=== PATIENT | female | born 1960 | race Caucasian/White ===

== ENCOUNTER 2025-08-05 08:30 | Outpatient (AMB) | payer OTHER, SELFPAY ==
--- OUTSIDE RECORDS SUMMARY | 2025-07-29 16:47 | XMS_ITS | Encounter Summary ---
Author Organization [facility] Address [address] [place] [address] Care Team Providers Care Stitcher Around Name Role Phone Eric Awa RAISSA Primary Care Provider [phone] Reason for Referral * Home Health (Routine) - Closed Specialty Diagnoses / Procedures Referred By Evens squires Referred To Contact Home Health Services Diagnoses Atrial flutter with rapid ventricular response (CMS/HCC V24, CMS/HCC V28) Primary cancer of right lower lobe of lung (CMS/HCC V24, CMS/HCC V28) Primary malignant neoplasm of lung metastatic to other site, unspecified laterality (CMS/HCC V24, CMS/HCC V28) Lindsay Mederos MD [address] [place] [phone] Phone: tel: fax: [address] [place] [address] Phone: tel: fax: Referral ID Status Reason Start Date Expiration Date V isits Requested Visits Authorized [id number] Closed Consult and Treat 08/03/2025 08/03/2026 1 1 Reason for Visit * Reason Comments Shortness of Breath Lower extremity swel ling x 3-4 days * Auth/Cert (Routine) Specialty Diagnoses / Procedures Referred By Contac t Referred To Contact Diagnoses Community acquired pneumonia NSTEMI (non-ST elevated myocardial infarction) ([facility] V24, [facility] V28) Anemia, unspecified type Dyspnea, unspecified type Procedures . Phuc Velásquez MD [address] [place] [address] Phone: tel: fax: [facility] [address] [place] [phone] Phone: tel: Referral ID Status Reason Start Date Expiration Date Visits Re quested Visits Authorized [id number] 1 1 Encounter Details Date Type Department Care Team (Latest Contact Info) Description 07/29/2025 4:47 PM EDT - 08/03/2025 3:14 PM EDT Hospital Encounter [facility] Urology [facility] [address] [place] [phone] Jean Claude Reynoso MD [address] [place] [phone] Phuc Velásquez MD [address] [place] [phone] Lindsay Mederos MD [address] [place] [phone] Dyspnea, unspecified type (Primary Dx); Anemia, unspecified type; NSTEMI (non-ST elevated myocardial infarction) ([facility]/HCC V24, [facility] V28); Atrial flutter with rapid ventricular response ([facility]/HCC V24, [facility] V28); Primary cancer of right lower lobe of lung ([facility] V24, [facility] V28); Primary malignant neoplasm of lung metastatic to other site, unspecified laterality ([facility] V24, [facility] V28) Discharge Disposition: Home-Health Care Svc Social History Tobacco Use Types Packs/Day Years Used Date Smoking Tobacco: Former Cigarettes Smokeless Tobacco: Never Alcohol Use Standard Drinks/Week Comments Yes 0 (1 standard drink = 0.6 oz pur e alcohol) 3-4 drinks per week Housing Instability Answer Date Recorde d Are you worried that in the next 2 months you may not have stable housing? Patient declined 07/11/2025 Food Access & Nutrition Answer Date Rec orded Do you have access to a vari ety of food including fruits and vegetables? Patient declined 07/11/2025 Health Literacy Answer Date Recorded How often do you need to hav e someone help you when you read instructions, pamphlets, or other written material from your doctor or pharmacy? Patient declined 07/11/2025 Caregiver: How often do you need to have someone help you when you read instructions, pamphlets, or other written material from your doctor or pharmacy? Not on file 025 Financial Risk Answer Date Recorded How hard is it for you to pa y for the very basics like food, housing, medical care, and air conditioning / heating? Patient declined 07/11/2025 Transportation Answer Date Recorded Has the lack of transportati on kept you from meetings, work, or from getting things needed for daily living? Patient declined 07/11/2025 Has the lack of transportati on kept you from medical appointments or from getting medications? Patient declined 07/11/2025 Social Isolation Answer Date Recorded How often do you feel lonely or isolated from those around you? Patient declined 07/11/2025 Food Risk Answer Date Recorded Within the past 12 months we worried whether our food would run out before we got money to buy more. Not asked 08/02/2025 Within the past 12 months th e food we bought just didn't last and we didn't have money to get more. Not asked 08/02/2025 Dependent Care Answer Date Recorded Do you need help finding or paying for care for your loved ones. For example, child care associate or elderly care for an older adult? Patient declined 07/11/2025 Education Answer Date Recorded Do you think completing more education or training, like finishing a GED, going to college, or learning a trade, would be helpful for you? Patient declined 07/11/2025 Employment and Income Answer Date Recor ded During the last four weeks, have you been actively looking for work? Patient declined 07/11/2025 Living Situation Answer Date Recorded What is your living situation? 0 07/11/2025 Interpersonal Safety Answer Date Record ed Physical Abuse 07/30/2025 Verbal Abuse 07/30/2025 Comments No Sex and Gender Information Value Date Recorded Sex Assigned at Female 10/14/2024 2:37 PM EST Legal Sex Female 2:41 AM EST Gender Identity Female 10/14/2024 2:37 PM EST Sexual Orientation Straight 03/25/2025 9: 21 AM EDT documented as of this encounter Last Filed Vital Signs Vital Sign Reading Time Taken Comments Blood Pressure 129/75 08/03/2025 9:05 AM EDT Pulse 104 08/03/2025 9:05 AM EDT Temperature 36.8 C (98.2 F) 08/03/2025 7:28 AM EDT Respiratory Rate 18 08/03/2025 7:28 AM EDT Oxygen Saturation 97% 08/03/2025 9:0 5 AM EDT dropped briefly to 88% on room air after stepping up/down 5 steps Inhaled Oxygen Concentration - - Weight 59 kg (130 lb) 07/30/2025 7:06 AM EDT Height 160 cm (5' 2.99 ) 07/30/2025 7:0 6 AM EDT Body Mass Index 23.03 07/30/2025 7:06 AM EDT documented in this encounter Functional Status * Are you deaf or do you have serious difficulty hearing? Answer Date of Assessment Author No 07/29/2025 5:18 PM EDT Aure Paredes RN * Are you blind or do you have serious difficulty seeing, even when wearing glasses? Answer Date of Assessment Author No 07/29/2025 5:18 PM EDT Aure Paredes RN * Do you have serious difficulty walking or climbing stairs? Answer Date of Assessment Author No 07/29/2025 5:18 PM EDT Aure Paredes RN * Do you have serious difficulty dressing or bathing? Answer Date of Assessment Author No 07/29/2025 5:18 PM EDT Aure Paredes RN * Because of a physical, mental, or emotional condition, do you have serious difficulty doing errandsalone such as visiting the doctor? Answer Date of Assessment Author No 07/29/2025 5:18 PM EDT Aure Paredes RN documented as of this encounter Mental Status * Because of a physical, mental, or emotional condition, do you have serious difficulty concentrating, remembering, or making decisions? (5 years old or older) Answer Entry Date Author No 07/29/2025 5:18 PM EDT Aure Paredes RN documented in this encounter Discharge Summaries * Lindsay Mederos MD - 08/03/2025 12:12 PM EDT Images from the original note were not included. BOWLING GREEN DISCHARGE SUMMARY Patient Information Veronica Frazier : 1960 [65 y.o.] Admitting Provider Phuc Velásquez MD Discharge Provider Lindsay Mederos MD, Lindsay Mederos MD Primary Care Physician Awa Reyes NP Admission Date 07/29/2025 Discharge Date 08/03/2025 Summary of Hospital Problems Presenting Chief Complaint: Shortness of breath Primary Discharge Diagnosis: Dyspnea with exertion Early pneumonia MetastaticAdenocarcinoma of the lung Paroxysmal A-fib Secondary Discharge Diagnosis: Gastric MALT lymphoma Bilateral pleural effusions small right greater than left Chronic anemia Discharge Destination: Home with services Code Status at Discharge: Full Code - Default Inpatient Consultants: Oncology Dr. Adams Infectious disease Dr. L[facility] Course Summary This is a 65-year-old female with history of metastatic adenocarcinoma of the lung complicated by bronch cultures growing pencillium, was started on voriconazole prophylaxis however discontinued by herself, marginal zone lymphoma, gastric MALT lymphoma, anemia, history of alcohol use, anxiety/depres belinda presenting to the emergency room with complaints of increasing shortness of breath. Patient admitted with concern of early developing pneumonia. Patient noted to be tachycardic with minimal ambulation, Trope was noted to be mildly elevated at 298, subsequent at 292. Patient admitted for further workup and management. Dyspnea, early pneumonia, reactive airway disease Likely early pneumonia in the setting of underlying metastatic right lung adenocarcinoma, with likely some reactive airway disease exacerbation as well. History of penicillium species in [facility] in May 2025, was on voriconazole, for total 6 weeks duration. Patient states that she took it for sometime and then stopped-due to concern of side effects felt it made her go into A-fib. Placed on IV antibiotics ceftriaxone and doxycycline completed course no fever or chills. Was also placed on a very short course of prednisone for the reactive airway disease, improved. Continue with updraft scheduled and as needed at home. CT scan done this admission showing no pulmonary embolism, bulky mediastinal and hilar adenopathy demonstrating bronchovascular encasement small right greater than left pleural effusions noted. COVID, influenza, negative Seen by respiratory, home O2 eval done, does not qualify for supplemental oxygen. metastatic adenocarcinoma of the lung History of gastric MALT lymphoma Bilateral pleural effusions right greater than left status post thoracentesis outpatient. Patient is status post right lower lobe superior segmentectomy, right upper lobe posterior segmentectomy, and status post right lower lobectomy. Followed by oncology Dr. Adams, on chemotherapy last received in May. PET scan done in March 2025 showed persistent right supraclavicular/infrahilar mass which appears increased in size with obstructive changes noted. metabolic activity within the mediastinal enlarged right hilar lymph nodes and new within the small right subcarinal node. Followed by interventional pulmonary as well. Seen by Dr. Cruz on 07/19/2025, has had right thoracentesis done which was noted to be predominantly lymphocytic, cytology negative. Pleurx catheter was deferred as the effusion was felt to be posterior and small. CT this admission also showing small right greater than left pleural effusion. No need for thoracentesis at this time. Discussed with oncology, appreciate input, patient is scheduled to have a second opinion at [facility] on 08/05 and wishes to continue to make decisions regarding further chemotherapy, clinical trial options at that time. Recent bronch in May 2025- grew pencillium species and was started on voriconazole - patient stopped taking due to concern for side effects. Seen by ID, appreciate input, felt penicillium does not generally cause invasive infections. Symptoms likely secondary to her progressive malignancy. As patient unable to tolerate voriconazole, wouldrecommend alternate dose if she is to begin on chemotherapy after being seen at [facility] and decision made regarding further treatment plans. Then would need antifungal treatment, could possibly try Isavueconazole, ID will follow up outpatient and will work on the PA process Paroxysmal A-fib likely be secondary from the primary illness. Had brief episodes of rapid A-fib, tachycardia initially, Cardizem dose was increased to 240 mg. She has been since noted to be in sinus rhythm on panel monitor. Continue with the Eliquis as well. Anemia chronic Hemoglobin did drop to 7.3 during the hospital course, was transfused 1 unit of packed red blood cell at the time. Currently stable Elevated troponin Noted to be mildly elevated at 298, subsequent at 292. Patient denies any chest pain, was noted to have tachycardia could likely be secondary to this. depression/anxiety Patient is on Ritalin, bupropion, hydroxyzine and trazodone, CODE STATUS full Healthcare proxy Brother -discussed plan of care with the patient as well as the brother during thehospital course Patient was seen by physical therapy recommending home PT services. Patient medically stable at her best at this time, does not require supplemental oxygen on eval. Needs to follow-up with [facility] oncology-appointment on 08/05/2025 to discuss regarding further options. Follow-up with Dr. Adams following this as well as infectious disease in a month. Follow-Up Instructions and Recommendations No follow-up provider specified. Discharge Procedure Orders Ambulatory referral to Home Health Standing Status: Future Referral Priority: Routine Referral Type: Home Health Referral Reason: Consult and Treat Requested Specialty: Home Health Services Number of Visits Requested: 1 Discharge Medications Your medication list START taking these medications Instructions Last Dose Given Next Dose Due albuterol HFA 90 mcg/actuation inhaler Commonly known as: ProAir HFA Inhale 2 puffs by mouth every 4 (four) hours if needed for wheezing or shortness of breath. benzonatate 200 mg capsule Commonly known as: TESSALON Take 1 capsule (200 mg total) by mouth 3 (three) times a day if needed for cough for up to 7 days. Do not crush or chew. CHANGE how you take these medications Instructions Last Dose Given Next Dose Due dilTIAZem CD 120 mg 24 hr capsule Commonly known as: CARDIZEM CD What changed: how much to take Take 2 capsules (240 mg total) by mouth 1 (one) time each day. CONTINUE taking these medications Instructions Last Dose Given Next Dose Due apixaban 5 mg tablet Commonly known as: ELIQUIS Take 1 tablet (5 mg total) by mouth 2 (two) times a day. buPROPion XL 150 mg 24 hr tablet Commonly known as: WELLBUTRIN XL Take 2 tablets (300 mg total) by mouth 1 (one) time each day. Do not crush, chew, or split. folic acid 1 mg tablet Commonly known as: FOLVITE Take 1 tablet (1 mg total) by mouth 1 (one) time each day. hydrOXYzine HCL 25 mg tablet Commonly known as: ATARAX Take 1 tablet (25 mg total) by mouth 3 (three) times a day if needed. ipratropium-albuteroL 0.5-2.5 mg/3 mL nebulizer solution Commonly known as: DUONEB Take 3 mL by nebulization every 8 (eight) hours. methylphenidate 10 mg tablet Commonly known as: RITALIN Take 10 mg by mouth 2 times daily. multivitamin tablet Take 1 tablet by mouth 1 (one) time each day. rosuvastatin 5 mg tablet Commonly known as: CRESTOR Take 1 tablet (5 mg total) by mouth 1 (one) time each day. senna 8.6 mg tablet Commonly known as: SENOKOT Take 2 tablets (17.2 mg total) by mouth 2 (two) times a day. sodium chloride 0.9 % nebulizer solution Take 3 mL by nebulization every 8 (eight) hours. thiamine 100 mg tablet Commonly known as: VITAMIN B-1 Take 1 tablet (100 mg total) by mouth 1 (one) time each day. TRAZODONE ORAL Take 100 mg by mouth 1 (one) time each day in the evening. STOP taking these medications voriconazole 50 mg tablet Commonly known as: Vfend Where to Get Your Medications These medications were sent to [id number] [phone] albuterol HFA 90 mcg/actuation inhaler benzonatate 200 mg capsule dilTIAZem CD 120 mg 24 hr capsule Physical Exam at time of Discharge Physical Exam Elderly female anxious appearing tearful in between conversation. HEENT PERRLA, EOMI Neck supple Chest no accessory muscle use, improved air entry, occasional wheezes heard. Heart S1-S2 regular no murmurs appreciated Abdomen soft nontender bowel sounds present Extremities no edema noted at this time. MANAGER OF LEARNING awake alert oriented x 3 no gross focal neurological deficits. Vitals Visit Vitals BP 129/75 Pulse 104 Temp 36.8 ??C (98.2 ??F) Resp 18 Temp (24hrs), Av.8 ??C (98.3 ??F), Min:36.6 ??C (97.9 ??F), Max:37.2 ??C (99 ??F) Body mass index is 23.03 kg/m??. No results found for: PTWT , PTHT Recent Results (from the past week) [id number], RSV, Influenza A and B qualitative RT-PCR Collection Time: 07/29/25 2:55 PM Specimen: Nares; Swab Result Value Ref Range Influenza A PCR Not Detected Not Detected Influenza B PCR Not Detected Not Detected RSV PCR Not Detected Not Detected SARS COV-2 Not Detected Not Detected MRSA molecular study Collection Time: 07/29/25 10:44 PM Specimen: Nares; Swab Result Value Ref Range MRSA Screen PCR Not Detected Not Detected Results from last 7 days Lab Units 08/02/2532 07/31/25 0507/30/25 0622 SODIUM mmol/L 138 135 134 POTASSIUM mmol/L 4.0 3.7 3.7 CHLORIDE mmol/L 101 97 98 CO2 mmol/L 30 29 31 BUN mg/dL 13 8 9 CREATININE mg/dL 0.67 0.59 0.58 GLUCOSE mg/dL 142* 134* 138* CALCIUM mg/dL 9.5 8.9 8.8 Results from last 7 days Lab Units 08/02/25 0532 07/31/25 0507/30/25 0622 WBC AUTO K/mcL 31.0* 12.4* 11.4* HEMOGLOBIN g/dL 9.4* 7.3* 8.0* HEMATOCRIT % 29.5* 23.7* 26.1* PLATELETS K/mcL 399 334 353 Results from last 7 days Lab Units 08/02/25 0532 07/31/25 0524 07/30/25 0622 WBC AUTO K/mcL 31.0* 12.4* 11.4* HEMOGLOBIN g/dL 9.4* 7.3* 8.0* HEMATOCRIT % 29.5* 23.7* 26.1* PLATELETS K/mcL 399 334 353 Results from last 7 days Lab Units 08/02/25 0532 07/31/25 0507/30/25 0622 SODIUM mmol/L 138 135 134 POTASSIUM mmol/L 4.0 3.7 3.7 CHLORIDE mmol/L 101 97 98 CO2 mmol/L 30 29 31 BUN mg/dL 13 8 9 CREATININE mg/dL 0.67 0.59 0.58 GLUCOSE mg/dL 142* 134* 138* CALCIUM mg/dL 9.[address] Angio Chest wo and/or w Contrast Final Result 1. No pulmonary embolus. 2. Bulky mediastinal and hilar adenopathy as before, demonstrating bronchovascular encasement as described above. 3. Small npdiq-nlldmcr-gsrb-left pleural effusions. 4. Coronary artery disease. This document has been electronically signed by: Mary Casas MD on 07/29/2025 19:24:26 XR Chest 2 Views Final Result FINDINGS/IMPRESSION: Right perihilar mass with postsurgical changes. Lucent remaining right lung with small right pleural effusion. Increased interstitial opacities throughout the left lung. Right chest wall port. -------- FINAL REPORT -------- Dictated By: Leanna Bender Dictated Date: 07/29/2025 16:15 ET Assigned Physician: Leanna Bender Reviewed and Electronically Signed By: Leanna Bender Signed Date: 07/29/2025 16:16 ET Workstation ID: [id number] Transcribed By: Self Edit Transcribed Date: 07/29/2025 16:15 ET Total time spent 35 minutes doing chart review, seeing patient performing physical exam, formulating plan, coordinating with RN, ICC for discharge, and documentation * Lindsay Mederos MD - 08/03/2025 12:09 PM EDT Cardiac diet * Lindsay Mederos MD - 08/03/2025 12:09 PM EDT As tolerated documented in this encounter Discharge Instructions * Discharge Instructions* Lindsay Mederos MD - 08/03/2025 12:10 PM EDT Follow up with your PCP outpatient in 1-2 weeks Follow up at as scheduled for 08/05/25 documented in this encounter Medications at Time of Discharge albuterol HFA (ProAir HFA) 90 mcg/actuation inhaler Inhale 2 puffs by mouth every 4 (four) hours if needed for wheezing or shortness of breath. 8.5 g 11 08/03/2025 6 apixaban (ELIQUIS) 5 mg tablet Take 1 tablet (5 mg total) by mouth 2 (two) times a day. 60 each 07/13/2025 5 benzonatate (TESSALON) 200 mg capsule Take 1 capsule (200 mg total) by mouth 3 (three) times a day if needed for cough for up to 7 days. Do not crush or chew. 20 capsule 08/03/2025 5 buPROPion XL (WELLBUTRIN XL) 150 mg 24 hr tablet Take 2 tablets (300 mg total) by mouth 1 (one) time each day. Do not crush, chew, or split. dilTIAZem CD (CARDIZEM CD) 120 mg 24 hr capsule Take 2 capsules (240 mg total) by mouth 1 (one) time each day. 60 each 08/03/2025 5 folic acid (FOLVITE) 1 mg tablet Take 1 tablet (1 mg total) by mouth 1 (one) time each day. 30 tablet 2 01/10/2025 6 hydrOXYzine HCL (ATARAX) 25 mg tablet Take 1 tablet (25 mg total) by mouth 3 (three) times a day if needed. ipratropium-albut Jg (DUONEB) 0.5-2.5 mg/3 mL nebulizer solutionIndicatio ns:Shortness of breath,Mixed simple and mucopurulent chronic bronchitis (CMS/HCC V24, CMS/HCC V28) Take 3 mL by nebulization every 8 (eight) hours. 270 mL 11 07/20/2025 6 methylphenidate (RITALIN) 10 mg tablet Take 10 mg by mouth 2 times daily. multivitamin tablet Take 1 tablet by mouth 1 (one) time each day. 30 each 07/09/2025 5 rosuvastatin (CRESTOR) 5 mg tablet Take 1 tablet (5 mg total) by mouth 1 (one) time each day. senna (SENOKOT) 8.6 mg tablet Take 2 tablets (17.2 mg total) by mouth 2 (two) times a day. 120 each 07/13/2025 5 sodium chloride 0.9 % nebulizer solutionIndicatio ns:Shortness of breath,Mixed simple and mucopurulent chronic bronchitis (CMS/HCC V24, CMS/HCC V28) Take 3 mL by nebulization every 8 (eight) hours. 90 mL 12 07/20/2025 6 thiamine (VITAMIN B-1) 100 mg tablet Take 1 tablet (100 mg total) by mouth 1 (one) time each day. 30 tablet 07/10/2025 5 trazodone HCl (TRAZODONE ORAL) Take 100 mg by mouth 1 (one) time each day in the evening. documented as of this encounter Ordered Prescriptions Prescription Sig Dispense Quantity Refills Last Filled Start Date End Date albuterol HFA (ProAir HFA) 90 mcg/actuation inhaler Inhale 2 puffs by mouth every 4 (four) hours if needed for wheezing or shortness of breath. 8.5 g 11 08/03/2025 6 benzonatate (TESSALON) 200 mg capsule Take 1 capsule (200 mg total) by mouth 3 (three) times a day if needed for cough for up to 7 days. Do not crush or chew. 20 capsule 08/03/2025 5 dilTIAZem CD (CARDIZEM CD) 120 mg 24 hr capsule Take 2 capsules (240 mg total) by mouth 1 (one) time each day. 60 each 08/03/2025 5 documented in this encounter Discharge Disposition Disposition Code Departure Means Destination Home-Health Care Svc documented in this encounter Progress Notes * Renee Martines RN - 08/03/2025 2:53 PM EDT 08/03/25 1450 Transportation Transportation at discharge Family What day is the transport expected? 08/03/25 Final Discharge Disposition Home Health Care Services Pt d/c home with [facility]. Family to transport home. * Brenda Abarca RN - 08/03/2025 2:00 PM EDT Goals: Discharge home with VNA Identify possible barriers to meeting goals/advancing plan of care: None Stability of the patient: Moderately Stable - Low risk of patient condition declining or worsening End of Shift Summary: Pt alert and oriented x4. VSS. Port de-accessed and pt being discharged home with VNA. Awaiting for family to pickler helper. * Clare Cantu RRT - 08/03/2025 9:14 AM EDT 08/03/25912 Qualify for Home O2 On at rest Room air SpO2 at rest 93 % On with exertion Room air SpO2 w/ exertion 91 % Amount of exertion time walked 6 Minutes Pt did not qualify for home o2 * Ara Brown PT - 08/03/2025 9:05 AM EDT [facility] Physical Therapy Evaluation & Treatment PT Discharge Recommendations: Home PT Staff Recommendations for safe patient handling: I in room Modified Kelly Scale Score: 2=Slight disability. Able to look after own affairs without assistance, but unable to carry out allprevious activities. AM-PAC 6 Clicks Scoring Form: Unable: 1 A Lot: 2 A Little: 3 None: 4 How much difficulty does the patient currently have? Turning over in bed (including adjustment of bedclothes, sheets, and blankets) [] [] [] [x] Sitting down on and standing up from a chair with arms (wheelchair, bedside commode etc [] [] [] [x] Moving from lying on back to sitting on the side of the bed [] [] [] [x] How much help from another person does the patient currently need? Moving to and from a bed to a chair ( including a wheelchair) [] [] [] [x] To walk in hospital room [] [] [] [x] Climbing 3-5 steps with a railing [] [] [] [x] Score: score indicates the pt is appropriate for discharge home with therapy recommendation above Precautions Medical Precautions: Fall Risk Safety Interventions: Call painting within reach, Bed alarm, Side rails up x2 RUE Weight Bearing Status: Full LUE Weight Bearing Status: Full RLE Weight Bearing Status: Full LLE Weight Bearing Status: Full PT Received On: 08/03/25 PT Start Time: 904 PT Stop Time: 934 PT Time Calculation (min): 30 min General Family/Caregiver Present: No Precautions Medical Precautions: Fall Risk Safety Interventions: Call painting within reach, Bed alarm, Side rails up x2 RUE Weight Bearing Status: Full LUE Weight Bearing Status: Full RLE Weight Bearing Status: Full LLE Weight Bearing Status: Full Cognition Overall Cognitive Status: Within Functional Limits Orientation Level: Oriented X4 History of Present Illness: Patient is a 65 y.o. female admitted to [facility] on 07/29/2025. 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 Primary cancer of right upper lobe of lung ([facility] V24, [facility] V28) Psoriasis Primary cancer of right lower lobe of lung ([facility] V24, [facility] V28) Small cell B-cell lymphoma ([facility] V24, [facility] V28) Weight loss Postprocedural pulmonary air leak Postprocedural pulmonary air leak B12 deficiency Pleural effusion, right Hypomagnesemia Lung mass Atrial flutter with rapid ventricular response ([facility] V24, [facility] V28) Community acquired pneumonia Past Medical History: Diagnosis Date Adenocarcinoma ([facility] V24, [facility] V28) Anxiety Cancer ([facility] V24, [facility] V28) Depression Hyperlipidemia Pleural effusion on right Primary cancer of right lower lobe of lung ([facility] V24, [facility] V28) Psoriasis Past Surgical History: Procedure Laterality Date LUNG BIOPSY LUNG LOBECTOMY Right 10/04/2024 RLL OTHER SURGICAL HISTORY Social History Home Living Environment: Home Living Type of Home: Apartment Lives With: Alone Home Adaptive Equipment: None Home Living Comments: first floor apt Home Access: Stairs to enter with rails Entrance Stairs-Number of Steps: 5 Bathroom Shower/Tub: Tub/shower unit Bathroom Toilet: Standard Bathroom Equipment: Grab bars in shower Prior Function Level of [place]: Independent with mobility and functional transfers Ambulation Status: Household ambulator, Community ambulator Indoor Mobility Assistance: Independent Stairs Assistance : Independent Prior Device Use: No prior device use Do you drive?: Yes Mode of Transportation: Car Which is your dominant hand?: Left General Assessment 08/03/25904 PT Last Visit PT Received On 08/03/25 General Family/Caregiver Present No PT Time Calculation PT Start Time 904 PT Stop Time 934 PT Time Calculation (min) 30 min Precautions Medical Precautions Fall Risk Safety Interventions Call painting within reach;Bed alarm;Side rails up x2 RUE Weight Bearing Status Full LUE Weight Bearing Status Full RLE Weight Bearing Status Full LLE Weight Bearing Status Full Vital Signs Heart Rate 104 BP 129/75 MAP (Calculated) 93 mm Hg SpO2 97 % (dropped briefly to 88% on room air after stepping up/down 5 steps) Oxygen Therapy Oxygen Therapy Supplemental oxygen O2 Delivery Method Nasal cannula O2 Flow Rate (L/min) 2 L/min Pain Assessment Pain Assessment No/denies pain Cognition Overall Cognitive Status WFL Home Living Type of Home Apartment Lives With Alone Home Adaptive Equipment None Home Living Comments first floor apt Home Access Stairs to enter with rails Entrance Stairs-Number of Steps 5 Bathroom Shower/Tub Tub/shower unit Bathroom Toilet Standard Bathroom Equipment Grab bars in shower Prior Function Level of [place] Independent with mobility and functional transfers Ambulation Status Household ambulator;Community ambulator Indoor Mobility Assistance Independent Stairs Assistance Independent Prior Device Use No prior device use Do you drive? Yes Mode of Transportation Car Which is your dominant hand? Left Activity Tolerance Endurance Tolerates 30 min exercise with multiple rests Sensation Light Touch No apparent deficits Proprioception Proprioception No apparent deficits Coordination Coordination Functional Postural Control Postural Control WFL Static Sitting Balance Static Sitting-Level of Assistance Independent Dynamic Sitting Balance Dynamic Sitting-Level of Assistance Independent Static Standing Balance Static Standing-Level of Assistance Independent Static Standing-Balance Support No upper extremity supported Dynamic Standing Balance Dynamic Standing-Level of Assistance Independent Dynamic Standing-Balance Ambulation Dynamic Standing-Balance Support Right upper extremity supported;Left upper extremity supported Bed Mobility Rolling Left and Right Assistance Independent Sitting to Lying Assistance Independent Lying to Sitting Assistance Independent Transfers Sit to Stand Assistance Independent Chair/Bed to Chair/Bed Transfer Assistance Independent Ambulation Walking Assistance Independent Walking Deficit Limited endurance Device No device Distance Ambulated (ft) 60 Comments after a seated rest, walked up 5 steps, then rested and walked back 60 ft Stairs 4 steps: Assistance Close supervision Rails Right;Left Number of Stairs 5 RUE Assessment RUE Assessment Within Functional Limits LUE Assessment LUE Assessment Within Functional Limits RLE Assessment RLE Assessment Within Functional Limits LLE Assessment LLE Assessment Within Functional Limits PT Assessment PT Assessment Results Decreased endurance;Other (Comment) (pt has desaturated to 88% on room air after going up./down 5 steps. 02 replaced and went back up to 92%; pt has decreased activity tolerance, and would benefit from home PT for home safety eval and to safely increase activity tolerance,) Plan PT Discharge Recommendations Home PT PT - Evaluation Status Complete PT - OK to Discharge Yes PT Evaluation Time Entry PT Evaluation (Moderate) Time Entry 30 ADDITIONAL COMMENTS: Chart reviewed. RN clears pt for session. Pt agrees to participate and presented in supine upon PT arrival. Initiated education on the importance of PT, bed mobility safety, Transfer Safety, Ambulation Safety , Therapy Plan of Care, Home Safety, Energy Conservations strategies, and importance of OOB activity . Pt verbalized understanding. EXIT STATUS: Session ended with patient supine, tray table and call light within reach, and RN made aware. Physical Therapy Assessment/Plan Veronica Frazier is a 65 y.o. female admitted to [facility] on 07/29/2025 for Community acquired pneumonia [J18.9] NSTEMI (non-ST elevated myocardial infarction) (CMS/HCC V24, CMS/HCC V28) [I21.4] Anemia, unspecified type [D64.9] Dyspnea, unspecified type [R06.00] . Pt presents with decreased activity tolerance, below functional baseline. . PT recommends Home PT when medically stable for safe discharge and to optimize functional mobility and independence. Goals Encounter Problems Encounter Problems (Active) There are no active problems. Encounter Problems (Resolved) There are no resolved problems. Education Documentation Explain information regarding therapeutic regimen, taught by Ara Brown PT at 08/03/2025 11:13 AM. Learner: Patient Readiness: Acceptance Method: Explanation Response: Verbalizes Understanding Comment: educated pt in plb exercises, pacing actiivty Teach information regarding safety precautions, taught by Ara Brown PT at 08/03/2025 11:13 AM. Learner: Patient Readiness: Acceptance Method: Explanation Response: Verbalizes Understanding Comment: educated pt in plb exercises, pacing actiivty Teach proper use of assistive devices, taught by Ara Brown PT at 08/03/2025 11:13 AM. Learner: Patient Readiness: Acceptance Method: Explanation Response: Verbalizes Understanding Comment: educated pt in plb exercises, pacing actiivty Education Comments No comments found. Ara Brown PT * Radha Ni RN - 08/03/2025 2:28 AM EDT Problem: Falls: Fall Risk (Adult IP BH) Goal: Patient will not fall or injure themselves during hospitalization. Outcome: Progressing Problem: Sensory: Acute Pain Goal: Ability to develop a pain control plan will improve Outcome: Progressing Problem: Cognitive: Acute Pain Goal: Expressions of feelings of enhanced comfort will increase Outcome: Progressing Problem: Patient Specific Problem: Acute Pain Goal: Patient Specific Outcome Outcome: Progressing Goals: Identify possible barriers to meeting goals/advancing plan of care: Stability of the patient: Moderately Stable - Low risk of patient condition declining or worsening End of Shift Summary: Patient safety and comfort maintained. Pain medicated. Standby to the bathroom. On O2 @ 2L. Pending home O2 eval. Cough medicated. Vitals stable. Resting calmly. * Lindsay Mederos MD - 08/02/2025 11:21 AM EDT Images from the original note were not included. RANULFO PROGRESS NOTE Date: 08/02/2025 Author: Lindsay Mederos MD Patient ID: Veronica M Partner is a 65 y.o. female : 1960 MR#: [id number] SUBJECTIVE Patient seen and examined. Discussed with RN. Telemetry reviewed, no significant tachycardia noted. In sinus rhythm. Discussed with patient and her brother as well over the phone. Patient states breathing is still the same not much change. Cough + Current Medications: Scheduled Medications PRN Medications IV Medications apixaban, 5 mg, BID atorvastatin, 20 mg, Nightly buPROPion XL, 300 mg, Daily cefTRIAXone, 2 g, q24h dilTIAZem CD, 240 mg, Daily doxycycline, 100 mg, q12h DAYNA folic acid, 1 mg, Daily guaiFENesin, 600 mg, q12h DAYNA methylphenidate, 10 mg, BID AC Breakfast & Lunch predniSONE, 40 mg, Daily sodium chloride, 10 mL, BID thiamine, 100 mg, Daily traZODone, 100 mg, Nightly acetaminophen, 650 mg, q4h PRN diphenhydrAMINE-zinc acetate, , TID PRN HYDROmorphone, 0.5 mg, q4h PRN hydrOXYzine HCL, 25 mg, TID PRN ipratropium-albuteroL, 3 mL, q4h PRN LORazepam, 0.5 mg, Daily PRN ondansetron (ZOFRAN-ODT) disintegrating tablet, 4 mg, q8h PRN Or ondansetron, 4 mg, q8h PRN prochlorperazine, 10 mg, q6h PRN Or prochlorperazine, 10 mg, q6h PRN Or prochlorperazine, 25 mg, q12h PRN senna, 2 tablet, Nightly PRN sodium chloride, 10 mL, PRN sodium chloride, 42 mL/hr, PRN Intake/Output Summary (Last 24 hours) at 08/02/2025 1121 Last data filed at 08/02/2025 0600 Gross per 24 hour Intake 320 ml Output -- Net 320 ml Wt Readings from Last 1 Encounters: 07/30/25 0706 59 kg (130 lb) OBJECTIVE Vitals: 08/01/25 2356 08/02/25 0409 08/02/25 0751 08/02/25 1044 BP: 122/66 137/75 134/80 133/80 BP Location: Right arm Left arm Patient Position: Lying Lying Pulse: 94 91 99 88 Resp: 16 18 20 20 Temp: 36.8 ??C (98.3 ??F) 35.9 ??C (96.6 ??F) 36.7 ??C (98 ??F) 36.4 ??C (97.6 ??F) TempSrc: Temporal Temporal SpO2: 96% 100% (!) 87% 99% Weight: Height: Physical Exam Elderly female anxious appearing tearful in between conversation. HEENT PERRLA, EOMI Neck supple Chest no accessory muscle use, improved air entry, occasional wheezes heard. Heart S1-S2 regular no murmurs appreciated Abdomen soft nontender bowel sounds present Extremities no edema noted at this time. MANAGER OF LEARNING awake alert oriented x 3 no gross focal neurological deficits. CBC. Results from last 7 days Lab Units 08/02/25 0532 07/31/25 0524 07/30/25 0622 WBC AUTO K/mcL 31.0* 12.4* 11.4* HEMOGLOBIN g/dL 9.4* 7.3* 8.0* HEMATOCRIT % 29.5* 23.7* 26.1* MCV FL 83.1 85.6 86.1 PLATELETS K/mcL 399 334 353 LYMPHS PCT AUTO % 1.9 4.4 5.3 MONO PCT AUTO % 5.7 11.4 8.9 EOS PCT AUTO % 0.0 1.8 2.8 Coag Anti-Xa Hematology Results from last 7 days Lab Units 07/29/25 1708 VITAMIN B 12 pcg/mL 1,829* FOLATE ng/ml >20.0* IRON mcg/dL 14* TIBC mcg/dL 253 IRON SATURATION % 6* RETIC CT PCT % 3.4* BMP Results from last 7 days Lab Units 08/02/25 0532 07/31/25 0524 07/30/25 0622 07/29/25 1708 SODIUM mmol/L 138 135 134 133 POTASSIUM mmol/L 4.0 3.7 3.7 3.7 CHLORIDE mmol/L 101 97 98 98 CO2 mmol/L 28 ANION GAP 7 9 5 7 BUN mg/dL 13 8 9 10 CREATININE mg/dL 0.67 0.59 0.58 0.58 CALCIUM mg/dL 9.5 8.9 8.8 9.1 MAGNESIUM mg/dL 1.9 -- 1.9 1.5* PHOSPHORUS mg/dL 3.0 -- -- -- Cardiac Results from last 7 days Lab Units 07/30/25 0622 07/30/25 0003 07/29/25 1902 07/29/25 1708 HIGH SENSITIVITY TROPONIN I ng/L 225* 276* 292* 298* BNP pcg/mL -- -- -- 35 LFT/other Results from last 7 days Lab Units 07/29/25 1708 ALT unit/L 24 AST unit/L 26 ALK PHOS unit/L 137* BILIRUBIN TOTAL mg/dL 0.4 BILIRUBIN DIRECT mg/dL 0.1 TOTAL PROTEIN g/dL 6.1 ALBUMIN g/dL 2.5* Metabolic No lab exists for component: FREET3 , SEDRATEESR , CRPHIGHLYSEN , LDLCHOL Imaging: CT Angio Chest wo and/or w Contrast Narrative: INDICATION: PE suspected, high prob CT angiography chest with contrast. 3D Postprocessing. Comparison: CT/SR - CT ANGIO CHEST WO AND OR W CONTRAST - 07/11/25 15:57 EDT Findings: The heart is normal size. RV/LV ratio is normal. Calcification of the coronary vasculature. Unremarkable thoracic aorta and great vessels. No aneurysm. No acute pulmonary embolus. Bulky mediastinal and hilar adenopathy is present as before, demonstrating bilateral pulmonary arterial and venous encasement, as before. Largest of these is within the right hilar location measuring roughly 65 mm. There is encasement of the trachea, sabrina, as well as the bilateral bronchi. 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 No change in bilateral pulmonary nodules. Moderate apical predominant emphysema. Small fysiw-[id number]-vmup-left pleural effusions. The visualized upper abdomen is unremarkable. No acute fractures. Impression: 1. No pulmonary embolus. 2. Bulky mediastinal and hilar adenopathy as before, demonstrating bronchovascular encasement as described above. 3. Small psvii-pzownws-asvo-left pleural effusions. 4. Coronary artery disease. This document has been electronically signed by: Mary Casas MD on 07/29/2025 19:24:26 XR Chest 2 Views Narrative: XR CHEST 2 VIEWS INDICATION: chest pain TECHNIQUE: XR CHEST 2 VIEWS COMPARISON: 07/11/2025 Impression: FINDINGS/IMPRESSION: Right perihilar mass with postsurgical changes. Lucent remaining right lung with small right pleural effusion. Increased interstitial opacities throughout the left lung. Right chest wall port. 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 Patient admitted with concern of early developing pneumonia. Patient noted to be tachycardic with minimal ambulation, Trope was noted to be mildly elevated at 298, subsequent at 292. Patient admitted for further workup and management. Dyspnea, early pneumonia, reactive airway disease Likely early pneumonia in the setting of underlying metastatic right lung adenocarcinoma, with likely some reactive airway disease exacerbation as well. History of penicillium species in [facility] in May 2025, was on voriconazole, for total 6 weeks duration. Patient states that she took it for 3 weeks and then stopped-due to concern of side effects felt itmade her go into A-fib. Currently on IV ceftriaxone and doxycycline, no fever or chills. Sputum cultures pending at this time. Continue with updraft scheduled and as needed. CT scan done this admission showing no pulmonary embolism, bulky mediastinal and hilar adenopathy demonstrating bronchovascular encasement small right greater than left pleural effusions noted. COVID, influenza, negative On p.o. prednisone to do a rapid taper. Will need home O2 eval prior to DC. metastatic adenocarcinoma of the lung History of gastric MALT lymphoma Bilateral pleural effusions right greater than left status post thoracentesis outpatient. Patient is status post right lower lobe superior segmentectomy, right upper lobe posterior segmentectomy, and status post right lower lobectomy. Followed by oncology Dr. Adams, on chemotherapy last received in May. PET scan done in March 2025 showed persistent right supraclavicular/infrahilar mass which appears increased in size with obstructive changes noted. metabolic activity within the mediastinal enlarged right hilar lymph nodes and new within the small right subcarinal node. Followed by interventional pulmonary as well. Seen by Dr. Cruz on 07/19/2025, has had right thoracentesis done which was noted to be predominantly lymphocytic, cytology negative. Pleurx catheter was deferred as the effusion was felt to be posterior and small. CT this admission also showing small right greater than left pleural effusion. No need for thoracentesis at this time. Discussed with oncology, appreciate input, patient is scheduled to have a second opinion at [facility] on 08/05 and wishes to continue to make decisions regarding further chemotherapy, clinical trial options at that time. Recent bronch in May 2025- grew pencillium species and was started on voriconazole - patient stopped taking after 3 weeks due to concern for side effects. Will have ID reevaluate and see if patient needs further antifungal agents or needs to be on prophylaxis. Paroxysmal A-fib Could likely be secondary from the primary illness. Currently noted to be in sinus rhythm on the panel monitor, continue with Eliquis, diltiazem. Heart rate better on panel monitor. Cardizem dose was increased to 240 mg. On telemetry noted to be in sinus rhythm. Will DC telemetry. Anemia chronic Hemoglobin at 7.3, will transfuse 1 unit of packed red blood cell. H&H stable continue to monitor for now. Elevated troponin Noted to be mildly elevated at 298, subsequent at 292. Patient denies any chest pain, was noted to have tachycardia could likely be secondary to this. depression/anxiety Patient is on Ritalin, bupropion, hydroxyzine and trazodone, still seems to be anxious and very tearful. Will trial with 1 dose of 0.5 mg Ativan as needed. DVT prophylaxis currently on Eliquis CODE STATUS full Healthcare proxy Brother -discussed plan of care with the patient as well as the brother. Discussed with patient regarding plan of care -will get PT eval, will need home O2 eval prior to DC. Await for ID to see, will plan likely DC in a.m. if continuing to improve and will need to follow-up with [facility] on 08/05 for second opinion regarding further treatment options * Sheila Thao RN - 08/02/2025 4:05 AM EDT Goals: Identify possible barriers to meeting goals/advancing plan of care: Stability of the patient: Moderately Stable - Low risk of patient condition declining or worsening End of Shift Summary: * Siria King RN - 08/01/2025 3:27 PM EDT CM Progress Note HOME: 08/02-08/03 Barriers: IV abx, ID consult pending, bilat Pleural effusions Dispo: Home no services * Lindsay Mederos MD - 08/01/2025 1:43 PM EDT Images from the original note were not included. RANULFO PROGRESS NOTE Date: 08/01/2025 Author: Lindsay Mederos MD Patient ID: Veronica Holcomb Partner is a 65 y.o. female : 1960 MR#: [id number] SUBJECTIVE Patient seen and examined. Discussed with RN. No further significant tachy noted over tele States breathing still same, not much different Cough + Current Medications: Scheduled Medications PRN Medications IV Medications apixaban, 5 mg, BID atorvastatin, 20 mg, Nightly buPROPion XL, 300 mg, Daily cefTRIAXone, 2 g, q24h dilTIAZem CD, 240 mg, Daily doxycycline, 100 mg, q12h DAYNA folic acid, 1 mg, Daily guaiFENesin, 600 mg, q12h DAYNA methylphenidate, 10 mg, BID AC Breakfast & Lunch [START ON 08/02/2025] predniSONE, 40 mg, Daily sodium chloride, 10 mL, BID thiamine, 100 mg, Daily traZODone, 100 mg, Nightly acetaminophen, 650 mg, q4h PRN diphenhydrAMINE-zinc acetate, , TID PRN HYDROmorphone, 0.5 mg, q4h PRN hydrOXYzine HCL, 25 mg, TID PRN ipratropium-albuteroL, 3 mL, q4h PRN LORazepam, 0.5 mg, Daily PRN ondansetron (ZOFRAN-ODT) disintegrating tablet, 4 mg, q8h PRN Or ondansetron, 4 mg, q8h PRN prochlorperazine, 10 mg, q6h PRN Or prochlorperazine, 10 mg, q6h PRN Or prochlorperazine, 25 mg, q12h PRN senna, 2 tablet, Nightly PRN sodium chloride, 10 mL, PRN sodium chloride, 42 mL/hr, PRN No intake or output data in the 24 hours ending 08/01/25 1343 Wt Readings from Last 1 Encounters: 07/30/25 0706 59 kg (130 lb) OBJECTIVE Vitals: 07/31/25 2340 08/01/25 0328 08/01/25 0703 08/01/25 1102 BP: 113/72 122/69 127/79 131/67 BP Location: Left arm Left arm Patient Position: Lying Lying Pulse: 87 88 87 95 Resp: 20 18 20 20 Temp: 36.4 ??C (97.5 ??F) 36.1 ??C (97 ??F) 36.1 ??C (97 ??F) 36.3 ??C (97.3 ??F) TempSrc: Temporal Temporal Temporal Oral SpO2: 99% 95% 100% 100% Weight: Height: Physical Exam Elderly female anxious appearing tearful in between conversation. HEENT PERRLA, EOMI Neck supple Chest no accessory muscle use, improved air entry Heart S1-S2 regular no murmurs appreciated Abdomen soft nontender bowel sounds present Extremities no edema noted at this time. MANAGER OF LEARNING awake alert oriented x 3 no gross focal neurological deficits. CBC. Results from last 7 days Lab Units 07/31/25 0524 07/30/25 0622 07/29/25 1708 WBC AUTO K/mcL 12.4* 11.4* 11.7* HEMOGLOBIN g/dL 7.3* 8.0* 7.8* HEMATOCRIT % 23.7* 26.1* 24.6* MCV FL 85.6 86.1 84.0 PLATELETS K/mcL 334 353 369 LYMPHS PCT AUTO % 4.4 5.3 4.7 MONO PCT AUTO % 11.4 8.9 11.3 EOS PCT AUTO % 1.8 2.8 2.6 Coag Anti-Xa Hematology Results from last 7 days Lab Units 07/29/25 1708 VITAMIN B 12 pcg/mL 1,829* FOLATE ng/ml >20.0* IRON mcg/dL 14* TIBC mcg/dL 253 IRON SATURATION % 6* RETIC CT PCT % 3.4* BMP Results from last 7 days Lab Units 07/31/25 0524 07/30/25 0622 07/29/25 1708 SODIUM mmol/L 135 134 133 POTASSIUM mmol/L 3.7 3.7 3.7 CHLORIDE mmol/L 97 98 98 CO2 mmol/L 29 31 28 ANION GAP 9 5 7 BUN mg/dL 8 9 10 CREATININE mg/dL 0.59 0.58 0.58 CALCIUM mg/dL 8.9 8.8 9.1 MAGNESIUM mg/dL -- 1.9 1.5* Cardiac Results from last 7 days Lab Units 07/30/25 0622 07/30/25 0003 07/29/25 1902 07/29/25 1708 HIGH SENSITIVITY TROPONIN I ng/L 225* 276* 292* 298* BNP pcg/mL -- -- -- 35 LFT/other Results from last 7 days Lab Units 07/29/25 1708 ALT unit/L 24 AST unit/L 26 ALK PHOS unit/L 137* BILIRUBIN TOTAL mg/dL 0.4 BILIRUBIN DIRECT mg/dL 0.1 TOTAL PROTEIN g/dL 6.1 ALBUMIN g/dL 2.5* Metabolic No lab exists for component: FREET3 , SEDRATEESR , CRPHIGHLYSEN , LDLCHOL Imaging: CT Angio Chest wo and/or w Contrast Narrative: INDICATION: PE suspected, high prob CT angiography chest with contrast. 3D Postprocessing. Comparison: CT/SR - CT ANGIO CHEST WO AND OR W CONTRAST - 07/11/25 15:57 EDT Findings: The heart is normal size. RV/LV ratio is normal. Calcification of the coronary vasculature. Unremarkable thoracic aorta and great vessels. No aneurysm. No acute pulmonary embolus. Bulky mediastinal and hilar adenopathy is present as before, demonstrating bilateral pulmonary arterial and venous encasement, as before. Largest of these is within the right hilar location measuring roughly 65 mm. There is encasement of the trachea, sabrina, as well as the bilateral bronchi. 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 No change in bilateral pulmonary nodules. Moderate apical predominant emphysema. Small ihajm-sztrqcn-tlvc-left pleural effusions. The visualized upper abdomen is unremarkable. No acute fractures. Impression: 1. No pulmonary embolus. 2. Bulky mediastinal and hilar adenopathy as before, demonstrating bronchovascular encasement as described above. 3. Small codcr-nqqayli-tkkc-left pleural effusions. 4. Coronary artery disease. This document has been electronically signed by: Mary Casas MD on 07/29/2025 19:24:26 XR Chest 2 Views Narrative: XR CHEST 2 VIEWS INDICATION: chest pain TECHNIQUE: XR CHEST 2 VIEWS COMPARISON: 07/11/2025 Impression: FINDINGS/IMPRESSION: Right perihilar mass with postsurgical changes. Lucent remaining right lung with small right pleural effusion. Increased interstitial opacities throughout the left lung. Right chest wall port. 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 Patient admitted with concern of early developing pneumonia. Patient noted to be tachycardic with minimal ambulation, Trope was noted to be mildly elevated at 298, subsequent at 292. Patient admitted for further workup and management. Dyspnea Likely early pneumonia in the setting of underlying metastatic right lung adenocarcinoma, with likely some reactive airway disease exacerbation as well. History of penicillium species in [facility] in May 2025, was on voriconazole, stopped taking due to concern for side effects. Currently on IV antibiotics with ceftriaxone and doxycycline. Continue updraft scheduled and as needed. CT scan done this admission showing no pulmonary embolism, bulky mediastinal and hilar adenopathy demonstrating bronchovascular encasement small right greater than left pleural effusions noted. 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 Patient is status post right lower lobe superior segmentectomy, right upper lobe posterior segmentectomy, and status post right lower lobectomy. Followed by oncology Dr. Adams, on chemotherapy last received in May. PET scan done in March 2025 showed persistent right supraclavicular/infrahilar mass which appears increased in size with obstructive changes noted. metabolic activity within the mediastinal enlarged right hilar lymph nodes and new within the small right subcarinal node. Followed by interventional pulmonary as well. Seen by Dr. Cruz on 07/19/2025, has had right thoracentesis done which was noted to be predominantly lymphocytic, cytology negative. Pleurx catheter was deferred as the effusion was felt to be posterior and small. Discussed with oncology, appreciate input, patient is scheduled to have a second opinion at [facility] on 08/05 and wishes to continue to make decisions regarding further chemotherapy, clinical trial options at that time. Recent bronch - grew pencillium species and was started on voriconazole - patient however stopped taking it saying that this was giving her significant side effects, when asked mentioned about nausea, and also making her go into rapid A-fib. Discussed with the patient, she would possibly consider treatment, but wants to discuss this with ID again before starting. Will consult ID in AM. Paroxysmal A-fib Could likely be secondary from the primary illness. Currently noted to be in sinus rhythm on the panel monitor, continue with Eliquis, diltiazem. Heart rate better on panel monitor. Cardizem dose was increased to 40 mg. Anemia chronic Hemoglobin at 7.3 will transfuse 1 unit of packed red blood cell. Discussed with patient, consentedand agreeable. Elevated troponin Noted to be mildly elevated at 298, subsequent at 292. Patient denies any chest pain, was noted to have tachycardia could likely be secondary to this. depression/anxiety Patient is on Ritalin, bupropion, hydroxyzine and trazodone, still seems to be anxious and very tearful. Will trial with 1 dose of 0.5 mg Ativan as needed. DVT prophylaxis currently on Eliquis CODE STATUS full Healthcare proxy Brother Discussed with patient regarding plan of care * Lindsay Mederos MD - 07/31/2025 12:20 PM EDT Images from the original note were not included. RANULFO PROGRESS NOTE Date: 07/31/2025 Author: Lindsay Mederos MD Patient ID: Veronica Holcomb Partner is a 65 y.o. female : 1960 MR#: [id number] SUBJECTIVE Patient seen and examined. Discussed with RN. Her heart rate did briefly jump up into the 190s yesterday, received Cardizem IV x 1 dose. Appears currently to be in sinus rhythm. States having cough and anxious and having trouble breathing and sleeping secondary to this. Having occasional productive sputum. On panel monitor noted to be in sinus rhythm, paroxysmal A-fib Current Medications: Scheduled Medications PRN Medications IV Medications apixaban, 5 mg, BID atorvastatin, 20 mg, Nightly buPROPion XL, 300 mg, Daily cefTRIAXone, 2 g, q24h dilTIAZem CD, 120 mg, Daily doxycycline, 100 mg, q12h DAYNA folic acid, 1 mg, Daily guaiFENesin, 600 mg, q12h DAYNA methylphenidate, 10 mg, BID AC Breakfast & Lunch methylPREDNISolone sod suc, 40 mg, q8h sodium chloride, 10 mL, BID thiamine, 100 mg, Daily traZODone, 100 mg, Nightly acetaminophen, 650 mg, q4h PRN diphenhydrAMINE-zinc acetate, , TID PRN HYDROmorphone, 0.5 mg, q4h PRN hydrOXYzine HCL, 25 mg, TID PRN ipratropium-albuteroL, 3 mL, q4h PRN LORazepam, 0.5 mg, Daily PRN ondansetron (ZOFRAN-ODT) disintegrating tablet, 4 mg, q8h PRN Or ondansetron, 4 mg, q8h PRN prochlorperazine, 10 mg, q6h PRN Or prochlorperazine, 10 mg, q6h PRN Or prochlorperazine, 25 mg, q12h PRN senna, 2 tablet, Nightly PRN sodium chloride, 10 mL, PRN Intake/Output Summary (Last 24 hours) at 07/31/2025 1220 Last data filed at 07/30/2025 1850 Gross per 24 hour Intake -- Output 500 ml Net -500 ml Wt Readings from Last 1 Encounters: 07/30/25 0706 59 kg (130 lb) OBJECTIVE Vitals: 07/31/25 0208 07/31/25 0321 07/31/25 0739 07/31/25 1121 BP: 125/60 126/69 113/66 108/61 BP Location: Left arm Left arm Left arm Patient Position: Lying Lying Lying Pulse: 96 94 93 60 Resp: 20 18 17 Temp: 36.1 ??C (97 ??F) 36.2 ??C (97.1 ??F) 36.1 ??C (97 ??F) TempSrc: Temporal Temporal Temporal SpO2: 98% 100% 100% 99% Weight: Height: Physical Exam Elderly female anxious appearing tearful in between conversation. HEENT PERRLA, EOMI Neck supple Chest no accessory muscle use, diminished breath sounds bilaterally, right more than left. Occasional wheezes heard today. Heart S1-S2 regular no murmurs appreciated Abdomen soft nontender bowel sounds present Extremities no edema noted at this time. MANAGER OF LEARNING awake alert oriented x 3 no gross focal neurological deficits. CBC. Results from last 7 days Lab Units 07/31/25 0524 07/30/25 0622 07/29/25 1708 WBC AUTO K/mcL 12.4* 11.4* 11.7* HEMOGLOBIN g/dL 7.3* 8.0* 7.8* HEMATOCRIT % 23.7* 26.1* 24.6* MCV FL 85.6 86.1 84.0 PLATELETS K/mcL 334 353 369 LYMPHS PCT AUTO % 4.4 5.3 4.7 MONO PCT AUTO % 11.4 8.9 11.3 EOS PCT AUTO % 1.8 2.8 2.6 Coag Anti-Xa Hematology Results from last 7 days Lab Units 07/29/25 1708 VITAMIN B 12 pcg/mL 1,829* FOLATE ng/ml >20.0* IRON mcg/dL 14* TIBC mcg/dL 253 IRON SATURATION % 6* RETIC CT PCT % 3.4* BMP Results from last 7 days Lab Units 07/31/25 0524 07/30/25 0622 07/29/25 1708 SODIUM mmol/L 135 134 133 POTASSIUM mmol/L 3.7 3.7 3.7 CHLORIDE mmol/L 97 98 98 CO2 mmol/L 29 31 28 ANION GAP 9 5 7 BUN mg/dL 8 9 10 CREATININE mg/dL 0.59 0.58 0.58 CALCIUM mg/dL 8.9 8.8 9.1 MAGNESIUM mg/dL -- 1.9 1.5* Cardiac Results from last 7 days Lab Units 07/30/25 0622 07/30/25 0003 07/29/25 1902 07/29/25 1708 HIGH SENSITIVITY TROPONIN I ng/L 225* 276* 292* 298* BNP pcg/mL -- -- -- 35 LFT/other Results from last 7 days Lab Units 07/29/25 1708 ALT unit/L 24 AST unit/L 26 ALK PHOS unit/L 137* BILIRUBIN TOTAL mg/dL 0.4 BILIRUBIN DIRECT mg/dL 0.1 TOTAL PROTEIN g/dL 6.1 ALBUMIN g/dL 2.5* Metabolic No lab exists for component: FREET3 , SEDRATEESR , CRPHIGHLYSEN , LDLCHOL Imaging: CT Angio Chest wo and/or w Contrast Narrative: INDICATION: PE suspected, high prob CT angiography chest with contrast. 3D Postprocessing. Comparison: CT/SR - CT ANGIO CHEST WO AND OR W CONTRAST - 07/11/25 15:57 EDT Findings: The heart is normal size. RV/LV ratio is normal. Calcification of the coronary vasculature. Unremarkable thoracic aorta and great vessels. No aneurysm. No acute pulmonary embolus. Bulky mediastinal and hilar adenopathy is present as before, demonstrating bilateral pulmonary arterial and venous encasement, as before. Largest of these is within the right hilar location measuring roughly 65 mm. There is encasement of the trachea, sabrina, as well as the bilateral bronchi. 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 No change in bilateral pulmonary nodules. Moderate apical predominant emphysema. Small qbmjf-irwxphj-nane-left pleural effusions. The visualized upper abdomen is unremarkable. No acute fractures. Impression: 1. No pulmonary embolus. 2. Bulky mediastinal and hilar adenopathy as before, demonstrating bronchovascular encasement as described above. 3. Small gvbch-ocvvefb-ekkj-left pleural effusions. 4. Coronary artery disease. This document has been electronically signed by: Mary Casas MD on 07/29/2025 19:24:26 XR Chest 2 Views Narrative: XR CHEST 2 VIEWS INDICATION: chest pain TECHNIQUE: XR CHEST 2 VIEWS COMPARISON: 07/11/2025 Impression: FINDINGS/IMPRESSION: Right perihilar mass with postsurgical changes. Lucent remaining right lung with small right pleural effusion. Increased interstitial opacities throughout the left lung. Right chest wall port. 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 Patient admitted with concern of early developing pneumonia. Patient noted to be tachycardic with minimal ambulation, Trope was noted to be mildly elevated at 298, subsequent at 292. Patient admitted for further workup and management. Dyspnea Likely early pneumonia in the setting of underlying metastatic right lung adenocarcinoma, with likely some reactive airway disease exacerbation as well. History of penicillium species in [facility] in May 2025, was on voriconazole, stopped taking due to concern for side effects. Sputum cultures pending Currently on IV antibiotics with ceftriaxone and doxycycline. Continue updraft scheduled and as needed. CT scan done this admission showing no pulmonary embolism, bulky mediastinal and hilar adenopathy demonstrating bronchovascular encasement small right greater than left pleural effusions noted. ? Dyspnea secondary to this as well. COVID, influenza, negative Will add IV steroids 40 mg every 8 hours and see if this will help. metastatic adenocarcinoma of the lung History of gastric MALT lymphoma Bilateral pleural effusions right greater than left status post thoracentesis. Patient is status post right lower lobe superior segmentectomy, right upper lobe posterior segmentectomy, and status post right lower lobectomy. Followed by oncology Dr. Adams, on chemotherapy last received in May. PET scan done in March 2025 showed persistent right supra Robert/infrahilar mass which appears increased in size with obstructive changes noted. Recommend metabolic activity within the mediastinal enlarged right hilar lymph nodes and new within the small right subcarinal node. Followed by interventional pulmonary as well. Seen by Dr. Cruz on 07/19/2025, has had right thoracentesis done which was noted to be predominantly lymphocytic, cytology negative. Pleurx catheter was deferred as the effusion was felt to be posterior and small. Will discuss with interventional pulmonary, regarding the increasing lymphadenopathy, possible obstruction, for debulking/possible stent placement - if this would help with patient's symptoms. Recent bronch - grew pencillium species and was started on voriconazole - patient however stopped taking it saying that this was giving her significant side effects, when asked mentioned about nausea, and also making her go into rapid A-fib. Trying to discuss this with the patient. She is currentlyhesitant to go back on the voriconazole. Will consult ID if any other possible options Dizziness Paroxysmal A-fib Patient does complain of some dizziness with exertion, also complained of palpitations at the time. Could likely be secondary to the paroxysmal A-fib and sinus tachycardia from the primary illness. Currently noted to be in sinus rhythm on the panel monitor, continue with Eliquis, diltiazem. Has been having brief bursts of tachycardia with heart rate yesterday went up to the 190s Will increase Cardizem to 240 mg for now and continue to monitor on telemetry. Elevated troponin Noted to be mildly elevated at 298, subsequent at 292. Patient denies any chest pain, was noted to have tachycardia could likely be secondary to this. Continue to monitor for now. depression/anxiety Patient is on Ritalin, bupropion, hydroxyzine and trazodone, still seems to be anxious and very tearful. Will trial with 1 dose of 0.5 mg Ativan as needed. DVT prophylaxis currently on Eliquis CODE STATUS full Healthcare proxy Brother Discussed with patient regarding plan of care * Lindsay Mederos MD - 07/30/2025 12:43 PM EDT Images from the original note were not included. RANULFO PROGRESS NOTE Date: 07/30/2025 Author: Lindsay Mederos MD Patient ID: Veronica Holcomb Partner is a 65 y.o. female : 1960 MR#: [id number] SUBJECTIVE Patient seen and examined. Very anxious. States that breathing has been worse over the past few days was at the [place] and stated that she could not do much activity, was short of breath after walking 10 feet. Denies any dizziness or lightheadedness. Denies any chest pain. Has been having cough with some productive sputum. On panel monitor noted to be in sinus rhythm, paroxysmal A-fib Current Medications: Scheduled Medications PRN Medications IV Medications apixaban, 5 mg, BID atorvastatin, 20 mg, Nightly buPROPion XL, 300 mg, Daily cefTRIAXone, 2 g, q24h dilTIAZem CD, 120 mg, Daily doxycycline, 100 mg, q12h DAYNA folic acid, 1 mg, Daily guaiFENesin, 600 mg, q12h DAYNA ipratropium-albuteroL, 3 mL, 4x daily methylphenidate, 10 mg, BID AC Breakfast & Lunch sodium chloride, 10 mL, BID thiamine, 100 mg, Daily traZODone, 100 mg, Nightly acetaminophen, 650 mg, q4h PRN HYDROmorphone, 0.5 mg, q4h PRN hydrOXYzine HCL, 25 mg, TID PRN ondansetron (ZOFRAN-ODT) disintegrating tablet, 4 mg, q8h PRN Or ondansetron, 4 mg, q8h PRN prochlorperazine, 10 mg, q6h PRN Or prochlorperazine, 10 mg, q6h PRN Or prochlorperazine, 25 mg, q12h PRN senna, 2 tablet, Nightly PRN sodium chloride, 10 mL, PRN Intake/Output Summary (Last 24 hours) at 07/30/2025 1243 Last data filed at 07/30/2025 0600 Gross per 24 hour Intake 532 ml Output -- Net 532 ml Wt Readings from Last 1 Encounters: 07/30/25 0706 59 kg (130 lb) OBJECTIVE Vitals: 07/30/25 0706 07/30/25 0712 07/30/25 0739 07/30/25 1105 BP: 130/72 114/73 118/70 113/76 BP Location: Right arm Right arm Right arm Left arm Patient Position: Sitting Sitting Lying Lying Pulse: (!) 130 89 95 Resp: 20 Temp: 36.6 ??C (97.8 ??F) 36.8 ??C (98.2 ??F) 36.4 ??C (97.6 ??F) TempSrc: Temporal Oral Temporal SpO2: 95% 96% Weight: 59 kg (130 lb) Height: 1.6 m (62.99 ) Physical Exam Elderly female anxious appearing tearful in between conversation. HEENT PERRLA, EOMI Neck supple Chest no accessory muscle use, diminished breath sounds bilaterally, right more than left. No addedsounds heard Heart S1-S2 regular no murmurs appreciated Abdomen soft nontender bowel sounds present Extremities no edema noted at this time. MANAGER OF LEARNING awake alert oriented x 3 no gross focal neurological deficits. CBC. Results from last 7 days Lab Units 07/30/25 0622 07/29/25 1708 WBC AUTO K/mcL 11.4* 11.7* HEMOGLOBIN g/dL 8.0* 7.8* HEMATOCRIT % 26.1* 24.6* MCV FL 86.1 84.0 PLATELETS K/mcL 353 369 LYMPHS PCT AUTO % 5.3 4.7 MONO PCT AUTO % 8.9 11.3 EOS PCT AUTO % 2.8 2.6 Coag Anti-Xa Hematology Results from last 7 days Lab Units 07/29/25 1708 VITAMIN B 12 pcg/mL 1,829* FOLATE ng/ml >20.0* IRON mcg/dL 14* TIBC mcg/dL 253 IRON SATURATION % 6* RETIC CT PCT % 3.4* BMP Results from last 7 days Lab Units 07/30/25 0622 07/29/25 1708 SODIUM mmol/L 134 133 POTASSIUM mmol/L 3.7 3.7 CHLORIDE mmol/L 98 98 CO2 mmol/L 31 28 ANION GAP 5 7 BUN mg/dL 9 10 CREATININE mg/dL 0.58 0.58 CALCIUM mg/dL 8.8 9.1 MAGNESIUM mg/dL 1.9 1.5* Cardiac Results from last 7 days Lab Units 07/30/25 0622 07/30/25 0003 07/29/25 1902 07/29/25 1708 HIGH SENSITIVITY TROPONIN I ng/L 225* 276* 292* 298* BNP pcg/mL -- -- -- 35 LFT/other Results from last 7 days Lab Units 07/29/25 1708 ALT unit/L 24 AST unit/L 26 ALK PHOS unit/L 137* BILIRUBIN TOTAL mg/dL 0.4 BILIRUBIN DIRECT mg/dL 0.1 TOTAL PROTEIN g/dL 6.1 ALBUMIN g/dL 2.5* Metabolic No lab exists for component: FREET3 , SEDRATEESR , CRPHIGHLYSEN , LDLCHOL Imaging: CT Angio Chest wo and/or w Contrast Narrative: INDICATION: PE suspected, high prob CT angiography chest with contrast. 3D Postprocessing. Comparison: CT/SR - CT ANGIO CHEST WO AND OR W CONTRAST - 07/11/25 15:57 EDT Findings: The heart is normal size. RV/LV ratio is normal. Calcification of the coronary vasculature. Unremarkable thoracic aorta and great vessels. No aneurysm. No acute pulmonary embolus. Bulky mediastinal and hilar adenopathy is present as before, demonstrating bilateral pulmonary arterial and venous encasement, as before. Largest of these is within the right hilar location measuring roughly 65 mm. There is encasement of the trachea, sabrina, as well as the bilateral bronchi. 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 No change in bilateral pulmonary nodules. Moderate apical predominant emphysema. Small yokfj-phwrmou-ovvf-left pleural effusions. The visualized upper abdomen is unremarkable. No acute fractures. Impression: 1. No pulmonary embolus. 2. Bulky mediastinal and hilar adenopathy as before, demonstrating bronchovascular encasement as described above. 3. Small jdfld-hxxpbxw-tiwf-left pleural effusions. 4. Coronary artery disease. This document has been electronically signed by: Mary Casas MD on 07/29/2025 19:24:26 XR Chest 2 Views Narrative: XR CHEST 2 VIEWS INDICATION: chest pain TECHNIQUE: XR CHEST 2 VIEWS COMPARISON: 07/11/2025 Impression: FINDINGS/IMPRESSION: Right perihilar mass with postsurgical changes. Lucent remaining right lung with small right pleural effusion. Increased interstitial opacities throughout the left lung. Right chest wall port. 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 Patient admitted with concern of early developing pneumonia. Patient noted to be tachycardic with minimal ambulation, Trope was noted to be mildly elevated at 298, subsequent at 292. Patient admitted for further workup and management. Dyspnea Likely early pneumonia in the setting of underlying metastatic right lung adenocarcinoma History of penicillium species in [facility] in May 2025, was on voriconazole, stopped taking due to concern for side effects. Sputum cultures pending Currently on IV antibiotics with ceftriaxone and doxycycline. Continue updraft scheduled and as needed. CT scan done this admission showing no pulmonary embolism, bulky mediastinal and hilar adenopathy demonstrating bronchovascular encasement small right greater than left pleural effusions noted. ? Dyspnea secondary to this as well. 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 Patient is status post right lower lobe superior segmentectomy, right upper lobe posterior segmentectomy, and status post right lower lobectomy. Followed by oncology Dr. Adams, on chemotherapy last received in May. PET scan done in March 2025 showed persistent right supra Robert/infrahilar mass which appears increased in size with obstructive changes noted. Recommend metabolic activity within the mediastinal enlarged right hilar lymph nodes and new within the small right subcarinal node. Followed by interventional pulmonary as well. Seen by Dr. Lisbeth Azevedo on 07/19/2025, has had right thoracentesis done which was noted to be predominantly lymphocytic, cytology negative. Pleurx catheter was deferred as the effusion was felt to be posterior and small. Will discuss with interventional pulmonary, regarding the increasing lymphadenopathy, possible obstruction, for debulking/possible stent placement - if this would help with patient's symptoms. Dizziness Paroxysmal A-fib Patient does complain of some dizziness with exertion, also complained of palpitations at the time. Could likely be secondary to the paroxysmal A-fib and sinus tachycardia from the primary illness. Continue to monitor on telemetry. Currently noted to be in sinus rhythm on the panel monitor, continue with Eliquis, diltiazem. Elevated troponin Noted to be mildly elevated at 298, subsequent at 292. Patient denies any chest pain, was noted to have tachycardia could likely be secondary to this. Continue to monitor for now. depression/anxiety Patient is on Ritalin, bupropion, hydroxyzine and trazodone, still seems to be anxious and very tearful. Will trial with 1 dose of 0.5 mg Ativan as needed. DVT prophylaxis currently on Eliquis CODE STATUS full Healthcare proxy Brother Discussed with patient regarding plan of care all questions answered to her satisfaction. * Haley Farr RN - 07/30/2025 9:42 AM EDT 07/30/25 0942 Initial Transition Plan Initial Transition Plan Home Back up Transition Plan Back up Transition plan Home Discharge Planning Living Arrangements Alone Type of Residence Private residence Assistive Devices None Support Systems Immediate family Medication Coverage Has Med Coverage Under Insurance Plan Yes Medication Affordability No concerns related to payment for meds Anticipated Discharge Needs Discipline following for SNF placement Jewelry Manager Informed Choice Informed Choice Given? Yes ICC met with patient at bedside, patient lives alone, does not use DME, drives, does not wear home O2, she is a however is not [facility] connected. Upon d/c her plan is to return home with no services * Sheila Thao RN - 07/30/2025 8:25 AM EDT The patient was walked down to the bathroom where after her heart rate was up for 170-190's, patient was safely brought in the bed, complaining of dizziness and sob. Asked the patient to bear down didn't have any effect. Rapid response was called, stat EKG and Cardizem 120 mg po was given which brought her heart rate down to 110's-140's. * Sheila Thao RN - 07/30/2025 4:23 AM EDT Goals: Identify possible barriers to meeting goals/advancing plan of care: Stability of the patient: End of Shift Summary: * Safia Reyes RN - 07/29/2025 2:47 PM EDT Pt to ED with complaints of shortness of breath, dizziness and cough. Pt followed by pulmonology, who sent her in. Pt states she is using albuterol nebulizer but states no relief. Has bilateral lowerext edema and being treated for lung CA. 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 [facility] HISTORY AND PHYSICAL Please contact author [IZABEL Christiansen] via [employer]. Patient: Veronica Frazier Admission Date/Time: 07/29/2025 4:47 PM : 1960 [65 y.o.] Patient's PCP: Awa Reyes NP Attending Provider: Jean Claude Reynoso MD;* CHIEF COMPLAINT SOB HISTORY OF PRESENT ILLNESS Veronica Holcomb Partner is a 65 y.o. 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 Adams, right pleuraleffusion status post thoracentesis and penicillium species on bronchoscopy on voriconazole prophylaxis , gastric MALT lymphoma in 2008, anemia, alcohol use disorder, cirrhosis, depression, anxiety, narcolepsy and further history below presented to ED for evaluation of increased shortness of breath.Patient reports coughing has worsened with mucus. Reports occasional tinge of blood if she has persistent cough. Denies left-sided chest pain, fever, chills. Denies cold-like symptoms. Reports she stopped taking voriconazole, she believes the medicine causes heart issues and dizziness. She states she is no longer feeling dizzy since she stopped taking miconazole. She also reports getting hives from oxycodone. She also complains of bilateral lower extreme edema. Has nausea, vomiting, abdominal pain, changes in bowel movement or urination. Arrival to ED, blood pressure 105/65, heart rate 92, respirate 18, sat 100% on room air, afebrile. Labs revealed leukocytosis 11.7, anemia H&H 7.8/24.6, platelets 369, electrolytes WNL, normal BUNs/creatinine 10/0.58, LFTs WNL except elevated alkaline phosphatase 138, low albumin 2.5, magnesium low 1.5. BNP normal 35, high-sensitivity troponin elevated 298 1 hour later came down to 292. COVID, influenza, RSV came back negative. CTA chest showed no PE, bulky mediastinal and hilar adenopathy as before duloxetine bronchovascularencasement, small right greater than left pleural effusion. Coronary artery disease. Patient received 2 g IV ceftriaxone, doxycycline, 2 g IV magnesium, Lopressor 5 mg IV and admitted hospital for further workup and treatment. Review of Systems All points in 12 point review of systems are negative or as per above MEDICAL HISTORY Past Medical History Past Medical History: Diagnosis Date ??? Adenocarcinoma (CMS/HCC V24, CMS/HCC V28) ??? Anxiety ??? Cancer (CMS/HCC V24, CMS/HCC V28) ??? Depression ??? Hyperlipidemia ??? Pleural effusion on right ??? Primary cancer of right lower lobe of lung (CMS/HCC V24, CMS/HCC V28) ??? Psoriasis Past Surgical History Past Surgical History: Procedure Laterality Date ??? LUNG BIOPSY ??? LUNG LOBECTOMY Right 10/04/2024 RLL ??? OTHER SURGICAL HISTORY Social History reports that she has quit smoking. Her smoking use included cigarettes. She has never used smokeless tobacco. She reports current alcohol use. She reports current drug use. Drug: Marijuana/Cannabis. Lives alone reports being independent Family History family history is not on file. Allergies is allergic to aspirin and sulfa (sulfonamide antibiotics). Home Medications Current Outpatient Medications Medication Instructions ??? apixaban (ELIQUIS) 5 mg, oral, 2 times daily ??? buPROPion XL (WELLBUTRIN XL) 300 mg, Daily ??? dilTIAZem CD (CARDIZEM CD) 120 mg, oral, Daily ??? folic acid (FOLVITE) 1 mg, oral, Daily ??? hydrOXYzine HCL (ATARAX) 25 mg tablet 1 tablet, 3 times daily PRN ??? ipratropium-albuteroL (DUONEB) 0.5-2.5 mg/3 mL nebulizer solution 3 mL, nebulization, Every 8 hours ??? methylphenidate (RITALIN) 10 mg tablet Take 10 mg by mouth 2 times daily. ??? multivitamin tablet 1 tablet, oral, Daily ??? rosuvastatin (CRESTOR) 5 mg tablet 1 tablet, Daily ??? senna (SENOKOT) 17.2 mg, oral, 2 times daily ??? sodium chloride 0.9 % nebulizer solution 3 mL, nebulization, Every 8 hours ??? thiamine (VITAMIN B-1) 100 mg, oral, Daily ??? trazodone HCl (TRAZODONE ORAL) Take 100 mg by mouth 1 (one) time each day in the evening. ??? voriconazole (VFEND) 250 mg, oral, 2 times daily OBJECTIVE Vitals Visit Vitals BP 122/71 (BP Location: Right arm, Patient Position: Sitting) Pulse 105 Temp 36.8 ??C (98.3 ??F) (Oral) Resp 18 Temp (24hrs), Av.9 ??C (98.4 ??F), Min:36.6 ??C (97.9 ??F), Max:37 ??C (98.6 ??F) There is no height or weight on file to calculate BMI. No results found for: PTWT , PTHT Physical Examination General: Age appropriate, pleasant. No acute distress. Laying comfortably on exam stretcher. Skin: Warm, dry, intact, no diaphoresis. HEENT: Atraumatic, normocephalic head, Patient is handling secretions without trismus or drooling. Speaking in full sentences. Neck: Soft/supple, full range of motion. No cervical spine tenderness noted. Cardiology: Regular rate and rhythm, no rubs or gallops, S1 and S2 auscultated. Respiratory: Diminished breath sound to auscultation in right lower lobe, no wheezes, rales or rhonchi. No accessory muscle use, retractions or tripoding; Abdominal/GI: Abdomen is not distended, Normal bowel sounds, abdomen soft and non-tender. No CVA tenderness. Peripheral Vascular: No edema on lower legs. Radial pulse 2 + and Dorsalis Pedis 1+ bilaterally. Neurological: No focal deficit. CN II-XII grossly intact. Franchise Broker strength equal 5/5 bilateral upper extremities. Upper and lower extremities with strength 5/5 and equal bilaterally. Musculoskeletal: No calf tenderness or asymmetry. Moving all extremities at the major joint spaces without difficulty. Psychiatric: Cooperative, appropriate mood & affect. ECG: Was ECG Performed? Yes . Sinus Rhythm? Yes. Signs of acute ischemia? NO Further Interpretation: NSR 89 bpm LAB RESULTS (most recent) HEMATOLOGY Lab Results Component Value Date WBC 11.7 (H) 07/29/2025 HGB 7.8 (L) 07/29/2025 HCT 24.6 (L) 07/29/2025 MCV 84.0 07/29/2025 PLT 369 07/29/2025 CHEMISTRY Lab Results Component Value Date GLUCOSE 115 (H) 07/29/2025 NA 133 07/29/2025 K 3.7 07/29/2025 CO2 28 07/29/2025 CL 98 07/29/2025 BUN 10 07/29/2025 CREATININE 0.58 07/29/2025 EGFR 101 07/29/2025 CALCIUM 9.1 07/29/2025 MG 1.5 (L) 07/29/2025 ANIONGAP 7 07/29/[address] Angio Chest wo and/or w Contrast Final Result 1. No pulmonary embolus. 2. Bulky mediastinal and hilar adenopathy as before, demonstrating bronchovascular encasement as described above. 3. Small vphog-tnpaike-vqvr-left pleural effusions. 4. Coronary artery disease. This document has been electronically signed by: Mary Casas MD on 07/29/2025 19:24:26 XR Chest 2 Views Final Result FINDINGS/IMPRESSION: Right perihilar mass with postsurgical changes. Lucent remaining right lung with small right pleural effusion. Increased interstitial opacities throughout the left lung. Right chest wall port. -------- FINAL REPORT -------- Dictated By: Leanna Bender Dictated Date: 07/29/2025 16:15 ET Assigned Physician: Leanna Bender Reviewed and Electronically Signed By: Leanna Bender Signed Date: 07/29/2025 16:16 ET Workstation ID: [id number] Transcribed By: Self Edit Transcribed Date: 07/29/2025 16:15 ET ASSESSMENT & PLAN ?Pneumonia 65 y.o. 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 Adams, right pleural effusion status post thoracentesis and penicillium species on bronchoscopy on voriconazole prophylaxis , gastric MALT lymphoma in 2008, anemia, alcohol use disorder, cirrhosis, depression, anxiety, narcolepsy and further history below presented to ED for evaluation of increased productive cough and shortness of breath. She is not hypoxic and mildly tachypneic. Labs reveal leukocytosis 11.7. CTA chest showed no pulmonary embolus, patchy mediastinal and hilar adenopathy demonstrating bronchovascular encasement. Due to increased productive cough, elevated WBC will start patient on antibiotics until procalcitonin is resulted -Continue IV ceftriaxone and doxycycline -Sputum culture ordered-pending -MRSA swab ordered-pending -Continue as needed antitussives, analgesia, antipyretics -As needed nebulizer, scheduled DuoNeb Elevated troponin Initial high-sensitivity troponin 298 1 hour later came down to 292. Per chart review chronically elevated high sensitivity roponin ranging 90-100s Patient denies chest pain. Recently underwent echocardiogram showed normal LVEF 55 to 60%. EKG showed normal sinus rhythm. - Will trend troponin Pleural effusion She has noted to have complex right pleural effusion secondary to malignancy followed by interventional [employer] Dr. Kenny underwent multiple thoracentesis x 3 fluid study showed lymphocyte predominant uncomplicated effusions. Today CTA chest showed small right greater than left pleural e ffusion. Per [employer] note patient is a candidate for Pleurx given effusions posterior and small. Metastatic adenocarcinoma of right lung Follows with Dr. Adams. Initially diagnosed in 2022 s/p right lower lobe segmentectomy and chemotherapy, unfortunately in July 2024 patient found to have recurrent disease in the right lower lobe status post right lower lobe lobectomy and chemotherapy. Patient has an appointment in August for second opinion at [facility]. Followed by [employer] underwent bronchoscopy and sampling which showed fungal infection startedon voriconazole prophylaxis. Patient reports that she stopped taking due to side effects. She believes it causes her cardiac problems and dizziness. Recent CT chest showed narrowing of right upper lung bronchus, recommending flexible rigid bronc, debulking/ablation and possible stent placement. Patient is followed by [employer] Lori-vanessa Currently patient is in normal sinus rhythm Continue home med Eliquis, diltiazem Hyperlipidemia Continue home med statin Depression and anxiety Continue home med trazodone, Ritalin, bupropion and hydroxyzine DVT Prophylaxis: On Eliquis Pneumoboots Code Status: FULL CODE HCP: Brother Darryl Moulton [phone] Case Discussed with Dr. Velásquez Cosigned by Phuc Velásquez MD at 07/30/2025 7:53 AM EDT Associated attestation - Phuc Velásquez MD - 07/30/2025 7:53 AM EDT This is a split/shared visit with IZABEL Christiansen. 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 After discussion with ER provider, the patient be admitted to the hospital. The patient has a leukocytosis and his is coughing up copious sputum. A sputum culture has been ordered. We will treat her with ceftriaxone and doxycycline. She nebulized treatments as needed for shortness of breath and wheezing. The patient reports that she feels that her symptoms have worsened since starting voriconazole and she declines the medication for treatment of her aspergillosis until she speaks with her infectious disease physician, Dr. Lutz. Upon arriving to the floor, the patient became severely tachycardic while attempting to ambulate tothe bathroom. A rapid response was called. The patient's heart rate peaked over 150 bpm but has come back down to 90-110 bpm with rest. Patient does report feeling somewhat lightheaded and dyspneic when she was severely tachycardic. Rhythm is irregular. ECG was performed and personally reviewed with the presence of both sinus tachycardia with PACs and short runs of atrial fibrillation. The patient was restarted on her diltiazem early. She is already anticoagulated on apixaban. Additionally the patient's troponin was noted to be elevated at 298 ng/L and 292 ng/L, respectively. She denies any chest pain. We will follow serial troponin levels to ensure that they are not evidence of an acute coronary syndrome. She does appear to be severely iron deficient. Once infection has been ruled out, she may be given parenteral iron supplementation. Management of additional chronic medical problems as below. Phuc Velásquez MD 07/30/25 7:46 AM EDT documented in this encounter Consult Notes * Rosangela Thomson RD - 08/02/2025 5:36 PM EDTAssociated Order(s): IP CONSULT TO NUTRITION SERVICES 08/02/2025 @ 5:52 PM EDT Nutrition Consult Note/Nutrition Assessment Reason for RD Intervention: Assessment Type: RN Consult Reason for Assessment: Other (Comment) ( assessment ) Anthropometrics: Height: 160 cm (62.99 ) Weight: 59 kg (130 lb) BMI (Calculated): 23 BMI Class: Normal IBW (lbs): 115 ABW Needed: No Current Diet and Supplements: Dietary Orders (From admission, onward) Start Ordered 08/02/251733 Dietary nutrition supplements Three times daily (TID); [facility]; Standard Oral Supplement Continuous Comments: Vary flavors Question Answer Comment Frequency Three times daily (TID) Location [facility] Supplements Standard Oral Supplement 08/02/25 1735 07/29/25 220 Adult diet [facility]; Cardiac; Cardiac Diet effective now Question Answer Comment Location [facility] Diet Type (req) Cardiac Diet Type (cardiac) Cardiac 07/29/252200 History of presenting illness: Patient is a 65 y.o. female with a history of Past Medical History: Diagnosis Date Adenocarcinoma (CMS/HCC V24, CMS/HCC V28) Anxiety Cancer (CMS/HCC V24, CMS/HCC V28) Depression Hyperlipidemia Pleural effusion on right Primary cancer of right lower lobe of lung (CMS/HCC V24, CMS/HCC V28) Psoriasis Past Surgical History: Procedure Laterality Date LUNG BIOPSY LUNG LOBECTOMY Right 10/04/2024 RLL OTHER SURGICAL HISTORY admitted 07/29/2025 with Community acquired pneumonia. Food/Nutrition History: Previously prescribed diets: (pt was unsure of weight changes prior to admission, pt denied decreased intake per nursing screen) Social Influencers of Health & Nutrition - Hunger Vital Signs: Within the past 12 months we worried whether our food would run out before we got money to buy more: Not asked Within the past 12 months the food we bought just didn't last and we didn't have money to get more: Not asked Who obtained answers? Unable to complete at this time. Assistance: Unable to determine at this time Weight History: Wt Readings from Last 10 Encounters: 07/30/25 59 kg (130 lb) 07/19/25 59.3 kg (130 lb 11.2 oz) 07/16/25 61.2 kg (135 lb) 07/12/25 59.2 kg (130 lb 8.2 oz) 07/13/25 61.2 kg (135 lb) 07/09/25 60.4 kg (133 lb 3.2 oz) 06/22/25 62.2 kg (137 lb 3.2 oz) 06/14/25 63.1 kg (139 lb 3.2 oz) 05/31/25 63.6 kg (140 lb 4.8 oz) 05/20/25 63.5 kg (140 lb) Subjective Assessment: Pt admitted with shortness of breath Pt found to have early pneumonia, pleural effusion, elevated troponin. Pt had rapid response called 07/30 for tachycardia. Pt was able to be transferred off of telemetry floor today. Skin intact. No BM reported, pt passing flatus. Nutrition-Related Lab Values: Results from last 7 days Lab Units 08/02/25 0532 07/30/25 0622 07/29/25 1708 SODIUM mmol/L 138 < > 133 POTASSIUM mmol/L 4.0 < > 3.7 PHOSPHORUS mg/dL 3.0 -- -- MAGNESIUM mg/dL 1.9 < > 1.5* CHLORIDE mmol/L 101 < > 98 CO2 mmol/L 30 < > 28 BUN mg/dL 13 < > 10 CREATININE mg/dL 0.67 < > 0.58 EGFR mL/min/1.73m2 98 < > 101 CALCIUM mg/dL 9.5 < > 9.1 BILIRUBIN TOTAL mg/dL -- -- 0.4 ALK PHOS unit/L -- -- 137* ALT unit/L -- -- 24 AST unit/L -- -- 26 GLUCOSE mg/dL 142* < > 115* WBC AUTO K/mcL 31.0* < > 11.7* < > = values in this interval not displayed. No results found for: LIPASE Medications: apixaban, 5 mg, oral, BID atorvastatin, 20 mg, oral, Nightly buPROPion XL, 300 mg, oral, Daily dilTIAZem CD, 240 mg, oral, Daily folic acid, 1 mg, oral, Daily guaiFENesin, 600 mg, oral, q12h DAYNA methylphenidate, 10 mg, oral, BID AC Breakfast & Lunch [START ON 08/03/2025] multivitamin, 1 each, oral, Daily predniSONE, 40 mg, oral, Daily sodium chloride, 10 mL, intravenous, BID thiamine, 100 mg, oral, Daily traZODone, 100 mg, oral, Nightly CONTINUOUS: PRN medications: acetaminophen, diphenhydrAMINE-zinc acetate, HYDROmorphone, hydrOXYzine HCL, ipratropium-albuteroL, LORazepam, ondansetron (ZOFRAN-ODT) disintegrating tablet OR ondansetron, prochlorperazine OR prochlorperazine OR prochlorperazine, senna, Insert peripheral IV AND Maintain IV access AND Saline lock IV AND sodium chloride AND sodium chloride, sodium chloride Energy Needs: kcal, gm protein, mL fluid per day. Total Energy Estimated Needs: based on [id number] calories (30-35 xavier/kg), 71-89 g protein (1.2-1.5 g/kg), 3961-4396 ml fluid (30-35 ml/kg) Height: 160 cm (62.99 ) Temp: 36.6 ??C (97.9 ??F) Food/Nutrition-Current Status: Intake Type: P.O. Current Diet Status: Appropriate Appetite: (unable to assess) Intake Amount (%): Unable to Assess (pt did not eat lunch 08/02. intakes not recorded) Intake Assessment: Inadequate (per nurse report) Main IVF: None Propofol?: No Nutrition Focused Physical Findings: Overall Appearance: unable to assess Skin: intact Nutrition Diagnosis: Code Type: None Identified (need more detailed nutrioin history on follow up to better assess malnutrition risk) Status: New Diagnosis: Inadequate Oral Intake Etiology: Changes in taste and appetite or preference Symptoms: as evidenced by RN report of pt eating poorly Nutrition Interventions: Medical Food Supplement. Will add multivitamin daily. Continue thiamine and folic acid as ordered by provider. Medical Food Supplement(s): Ensure Plus (Ensure Plus High Protein) TID Nutrition Education Follow for need Goals: Patient will initially consume at least 50% of meals. , Patient will consume ONS., Monitor/control glucose levels, Improvement in LFTs., Electrolytes within normal range., Minimize risk of refeeding syndrome., Maintain weight., Stooling appropriately., and Wound healing progress. Coordination of Patient Care: Discussed with RN via [facility] Secure Chat/[employer]. Monitoring/Evaluation: Fluid/Beverage Intake, Food Intake, Medical Food Supp/Oral Nutrition Supp, Weight, Renal/Electrolyte Profile, Gastrointestinal Profile, Diet Order Follow Up: Nutrition Priority Level: High RD remains available and will continue to follow. Signature: Rosangela Thomson RD * Jasmyn Lutz MD - 08/02/2025 11:10 AM EDTAssociated Order(s): IP CONSULT TO INFECTIOUS DISEASES Infectious Diseases Consult 08/02/25 No ref. provider found Awa Reyes NP Reason for Consultation: History of penicillium growing in [facility] Source of history: chart review and the patient Consult placed by: Lindsay Mederos MD History Of Present Illness (includes Chief Complaint): Veronica Frazier is a 65 y.o. female who has a past medical history of Adenocarcinoma (CMS/HCC V24, CMS/HCC V28), Anxiety, Cancer (CMS/HCC V24, CMS/HCC V28), Depression, Hyperlipidemia, Pleural effusion on right, Primary cancer of right lower lobe of lung (CMS/HCC V24, CMS/HCC V28), and Psoriasis.. The patient was admitted to the hospital on 07/29/2025 for worsening dyspnea on exertion. The patient has progressive lung cancer. She follows with Dr. Adams and Dr Scales. She had initially beenreferred to me in May for her [facility] growing penicillium species. She has not had chemotherapy since March. She was referred to [facility] for second opinion regarding her treatment. The decision had not been made whether she would restart chemotherapy or not I had started the patient on voriconazole in case she became immunocompromised however the patient was unable to tolerate this and developed A-fib about 1 to 2 weeks after she starting the medication and had to discontinue it. Her symptoms are significantly worsening and her tumors are growing in size. IP has reached out to me regardingthe concerns about her progressive clinical worsening. It is most likely due to the worsening tumors. She was started on ceftriaxone and doxycycline by the admitting team even though she does not really have any evidence of a bacterial infection. MRSA PCR was negative.. The ID service has been consulted for management during this patient's hospital stay. Past Medical History: Past Medical History: Diagnosis Date Adenocarcinoma (CMS/HCC V24, CMS/HCC V28) Anxiety Cancer (CMS/HCC V24, CMS/HCC V28) Depression Hyperlipidemia Pleural effusion on right Primary cancer of right lower lobe of lung ([facility] V24, [facility] V28) Psoriasis Surgical History: Past Surgical History: Procedure Laterality Date LUNG BIOPSY LUNG LOBECTOMY Right 10/04/2024 RLL OTHER SURGICAL HISTORY Family History: No family history on file. Social History: Social History Tobacco Use Smoking status: Former Types: Cigarettes Smokeless tobacco: Never Substance Use Topics Alcohol use: Yes Comment: 3-4 drinks per week Drug use: Yes Types: Marijuana/Cannabis Comment: edibles Allergies: Aspirin, Sulfa (sulfonamide antibiotics), and Oxycodone Home Medications: Prior to Admission medications Medication Sig Start Date End Date Taking? Authorizing Provider apixaban (ELIQUIS) 5 mg tablet Take 1 tablet (5 mg total) by mouth 2 (two) times a day. 07/13/25 08/12/25 Jarod Ramos MD buPROPion XL (WELLBUTRIN XL) 150 mg 24 hr tablet Take 2 tablets (300 mg total) by mouth 1 (one) time each day. Do not crush, chew, or split. Historical Provider, dilTIAZem CD (CARDIZEM CD) 120 mg 24 hr capsule Take 1 capsule (120 mg total) by mouth 1 (one) timeeach day. 07/14/25 08/13/25 Jarod Ramos MD folic acid (FOLVITE) 1 mg tablet Take 1 tablet (1 mg total) by mouth 1 (one) time each day. Subramony SubramoniaMD Tessy hydrOXYzine HCL (ATARAX) 25 mg tablet Take 1 tablet (25 mg total) by mouth 3 (three) times a day ifneeded. Historical Provider, ipratropium-albuteroL (DUONEB) 0.5-2.5 mg/3 mL nebulizer solution Take 3 mL by nebulization every 8(eight) hours. 07/20/25 07/20/26 Tomasa Kenny MD methylphenidate (RITALIN) 10 mg tablet Take 10 mg by mouth 2 times daily. Historical Provider, multivitamin tablet Take 1 tablet by mouth 1 (one) time each day. 07/09/25 08/08/25 Vadim Ruiz MD rosuvastatin (CRESTOR) 5 mg tablet Take 1 tablet (5 mg total) by mouth 1 (one) time each day. Historical Provider, senna (SENOKOT) 8.6 mg tablet Take 2 tablets (17.2 mg total) by mouth 2 (two) times a day. 07/13/25 08/12/25 Jarod Ramos MD sodium chloride 0.9 % nebulizer solution Take 3 mL by nebulization every 8 (eight) hours. 07/20/25 07/20/26 Tomasa Kenny MD thiamine (VITAMIN B-1) 100 mg tablet Take 1 tablet (100 mg total) by mouth 1 (one) time each day. 07/10/25 08/09/25 Vadim Ruiz MD trazodone HCl (TRAZODONE ORAL) Take 100 mg by mouth 1 (one) time each day in the evening. Historical Provider, voriconazole (Vfend) 50 mg tablet Take 5 tablets (250 mg total) by mouth 2 (two) times a day. 06/23/25 08/04/25 Jasmyn Lutz MD HYDROmorphone (DILAUDID) 2 mg tablet Take 1 tablet (2 mg total) by mouth every 6 (six) hours if needed for severe pain for up to 10 days. Max Daily Amount: 8 mg 07/25/25 07/29/25 Subramnavya Gatica MD Current Medications: Current Facility-Administered Medications: acetaminophen (TYLENOL) tablet 650 mg, 650 mg, oral, q4h PRN, Phuc Velásquez MD apixaban (ELIQUIS) tablet 5 mg, 5 mg, oral, BID, Phuc Velásquez MD, 5 mg at 08/02/25 0849 atorvastatin (LIPITOR) tablet 20 mg, 20 mg, oral, Nightly, Phuc Velásquez MD, 20 mg at buPROPion XL (WELLBUTRIN XL) 24 hr tablet 300 mg, 300 mg, oral, Daily, Phuc Velásquez MD, 300 mg at 08/02/25 08 cefTRIAXone (ROCEPHIN) 2 g in sterile water 20 mL IV syringe, 2 g, intravenous, q24h, Phuc Velásquez MD, 2 g at 08/01/252105 dilTIAZem CD (CARDIZEM CD) 24 hr capsule 240 mg, 240 mg, oral, Daily, Lindsay Mederos MD, 240 mgat 08/02/25 0849 diphenhydrAMINE-zinc acetate cream, , Topical, TID PRN, IZABEL Mcneal doxycycline (MONODOX) capsule 100 mg, 100 mg, oral, q12h DAYNA, Phuc Velásquez MD, 100 mg at 08/02/25 0849 folic acid (FOLVITE) tablet 1 mg, 1 mg, oral, Daily, Phuc Velásquez MD, 1 mg at 08/02/25 0849 guaiFENesin (MUCINEX) 12 hr tablet 600 mg, 600 mg, oral, q12h DAYNA, IZABEL Worley, 600 mg at 08/02/25 0849 HYDROmorphone (DILAUDID) injection 0.5 mg, 0.5 mg, intravenous, q4h PRN, IZABEL Christiansen, 0.5 mg at 08/02/25 0525 hydrOXYzine HCL (ATARAX) tablet 25 mg, 25 mg, oral, TID PRN, Phuc Velásquez MD, 25 mg at 08/02/25 0849 ipratropium-albuteroL (DUONEB) 0.5-2.5 mg/3 mL nebulizer solution 3 mL, 3 mL, nebulization, q4h PRN, Lindsay Mederos MD, 3 mL at 08/02/25 1033 LORazepam (ATIVAN) tablet 0.5 mg, 0.5 mg, oral, Daily PRN, Lindsay Mederos MD, 0.5 mg at 08/01/25 1042 methylphenidate (RITALIN) tablet 10 mg, 10 mg, oral, BID AC Breakfast & Lunch, Phuc Velásquez MD, 10 mg at 08/02/25 0849 ondansetron ODT (ZOFRAN-ODT) disintegrating tablet 4 mg, 4 mg, oral, q8h PRN OR ondansetron (PF) (ZOFRAN) injection 4 mg, 4 mg, intravenous, q8h PRN, Phuc Velásquez MD predniSONE (DELTASONE) tablet 40 mg, 40 mg, oral, Daily, Lindsay Mederos MD, 40 mg at 08/02/25 0848 prochlorperazine (COMPAZINE) tablet 10 mg, 10 mg, oral, q6h PRN OR prochlorperazine (COMPAZINE)injection 10 mg, 10 mg, intravenous, q6h PRN OR prochlorperazine (COMPAZINE) suppository 25 mg,25 mg, rectal, q12h PRN, Phuc Velásquez MD senna (SENOKOT) tablet 17.2 mg, 2 tablet, oral, Nightly PRN, Phuc Velásquez MD, 17.2 mg at 08/01/25 2144 Insert peripheral IV, , , Once AND Maintain IV access, , , Until discontinued AND Saline lock IV, , , Once AND sodium chloride 0.9 % flush 10 mL, 10 mL, intravenous, BID, 10 mL at 08/02/25 0850 AND sodium chloride 0.9 % flush 10 mL, 10 mL, intravenous, PRN, Phuc Velásquez MD sodium chloride 0.9 % infusion, 42 mL/hr, intravenous, PRN, Lindsay Mederos MD thiamine (VITAMIN B-1) tablet 100 mg, 100 mg, oral, Daily, Phuc Velásquez MD, 100 mg at 08/02/25 0849 traZODone (DESYREL) tablet 100 mg, 100 mg, oral, Nightly, Phuc Velásquez MD, 100 mg at PRN medications: acetaminophen, diphenhydrAMINE-zinc acetate, HYDROmorphone, hydrOXYzine HCL, ipratropium-albuteroL, LORazepam, ondansetron (ZOFRAN-ODT) disintegrating tablet OR ondansetron, prochlorperazine OR prochlorperazine OR prochlorperazine, senna, Insert peripheral IV AND Maintain IV access AND Saline lock IV AND sodium chloride AND sodium chloride, sodium chloride ROS: Review of Systems Constitutional: Negative. HENT: Negative. Respiratory: Positive for cough and shortness of breath. Cardiovascular: Negative. Gastrointestinal: Negative. Genitourinary: Negative. Musculoskeletal: Negative. Skin: Negative. Neurological: Negative. Vital signs for last 24 hours: Temp: 36.4 ??C (97.6 ??F) (08/02 1044) Heart Rate: 88 (08/02 1044) Resp: 20 (08/02 1044) BP: 133/80 (08/02 1044) Intake/Output this shift: No intake/output data recorded. Physicial Exam Physical Exam Constitutional: Appearance: Normal appearance. HENT: Head: Normocephalic and atraumatic. Eyes: General: No scleral icterus. Cardiovascular: Rate and Rhythm: Normal rate and regular rhythm. Heart sounds: No murmur heard. No friction rub. No gallop. Pulmonary: Effort: Pulmonary effort is normal. No respiratory distress. Breath sounds: Normal breath sounds. No stridor. No wheezing, rhonchi or rales. Chest: Chest wall: No tenderness. Abdominal: General: Abdomen is flat. There is no distension. Palpations: Abdomen is soft. There is no mass. Tenderness: There is no abdominal tenderness. There is no right CVA tenderness, left CVA tenderness, guarding or rebound. Hernia: No hernia is present. Musculoskeletal: General: No swelling or tenderness. Skin: General: Skin is warm and dry. Coloration: Skin is not jaundiced or pale. Neurological: Mental Status: She is alert. Results: Lab No results displayed because visit has over 200 results. Lab Results Component Value Date URINECX 07/08/2025 <10,000 CFU/mL gram positive cocci, insignificant count, no further workup MRSA Not Detected 07/29/2025 Recent Results (from the past week) [id number], RSV, Influenza A and B qualitative RT-PCR Collection Time: 07/29/25 2:55 PM Specimen: Nares; Swab Result Value Ref Range Influenza A PCR Not Detected Not Detected Influenza B PCR Not Detected Not Detected RSV PCR Not Detected Not Detected SARS COV-2 Not Detected Not Detected MRSA molecular study Collection Time: 07/29/25 10:44 PM Specimen: Nares; Swab Result Value Ref Range MRSA Screen PCR Not Detected Not Detected Radiology: CT Angio Chest wo and/or w Contrast Narrative: INDICATION: PE suspected, high prob CT angiography chest with contrast. 3D Postprocessing. Comparison: CT/SR - CT ANGIO CHEST WO AND OR W CONTRAST - 07/11/25 15:57 EDT Findings: The heart is normal size. RV/LV ratio is normal. Calcification of the coronary vasculature. Unremarkable thoracic aorta and great vessels. No aneurysm. No acute pulmonary embolus. Bulky mediastinal and hilar adenopathy is present as before, demonstrating bilateral pulmonary arterial and venous encasement, as before. Largest of these is within the right hilar location measuring roughly 65 mm. There is encasement of the trachea, sabrina, as well as the bilateral bronchi. 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 No change in bilateral pulmonary nodules. Moderate apical predominant emphysema. Small hgulq-tgvabno-wxcu-left pleural effusions. The visualized upper abdomen is unremarkable. No acute fractures. Impression: 1. No pulmonary embolus. 2. Bulky mediastinal and hilar adenopathy as before, demonstrating bronchovascular encasement as described above. 3. Small bfgfe-ztkrpcx-kccd-left pleural effusions. 4. Coronary artery disease. This document has been electronically signed by: Mary Casas MD on 07/29/2025 19:24:26 XR Chest 2 Views Narrative: XR CHEST 2 VIEWS INDICATION: chest pain TECHNIQUE: XR CHEST 2 VIEWS COMPARISON: 07/11/2025 Impression: FINDINGS/IMPRESSION: Right perihilar mass with postsurgical changes. Lucent remaining right lung with small right pleural effusion. Increased interstitial opacities throughout the left lung. Right chest wall port. -------- FINAL REPORT -------- Dictated By: Leanna Bender Dictated Date: 07/29/2025 16:15 ET Assigned Physician: Leanna Bender Reviewed and Electronically Signed By: Leanna Bender Signed Date: 07/29/2025 16:16 ET Workstation ID: [id number] Transcribed By: Self Edit Transcribed Date: 07/29/2025 16:15 ET Assessment/Plan Veronica Frazier is a 65 y.o. female who has a past medical history of Adenocarcinoma (CMS/HCC V24, CMS/HCC V28), Anxiety, Cancer (CMS/HCC V24, CMS/HCC V28), Depression, Hyperlipidemia, Pleural effusion on right, Primary cancer of right lower lobe of lung (CMS/HCC V24, CMS/HCC V28), and Psoriasis.. The patient was admitted to the hospital on 07/29/2025 for worsening dyspnea on exertion. The patient has progressive lung cancer. She follows with Dr. Adams and Dr Scales. She had initially beenreferred to me in May for her bronc growing penicillium species. She has not had chemotherapy since March. She was referred to [facility] for second opinion regarding her treatment. The decision had not been made whether she would restart chemotherapy or not I had started the patient on voriconazole in case she became immunocompromised however the patient was unable to tolerate this and developed A-fib about 1 to 2 weeks after she starting the medication and had to discontinue it. Her symptoms are significantly worsening and her tumors are growing in size. IP has reached out to me regardingthe concerns about her progressive clinical worsening. It is most likely due to the worsening tumors. She was started on ceftriaxone and doxycycline by the admitting team even though she does not really have any evidence of a bacterial infection. MRSA PCR was negative.. The ID service has been consulted for management during this patient's hospital stay. 1. Worsening lung cancer 2. Hypoxic respiratory failure 3. Concern for fungal infection/colonisation 4. Possible need for chemotherapy Penicilum generally does not cause invasive infections The patient's symptoms are most likely due to her progressive malignancy However, I did start her on voriconazole in case she started chemotherapy and became immunocompromised Unfortunately the patient was not able to tolerate this and only took it for what appears to be a couple of weeks and then developed A-fib and since then has not taken the posaconazole Voriconazole can trigger arrhythmias generally we are concerned about QTc prolonging arrhythmias however A-fib is a nonspecific entity and can have many etiologies I had extensive discussion with interventional pulmonary as well as oncology, oncology feels that the patient does not have many options in terms of treatment, IP also strongly felt that a goals of care discussion was needed as she was nearing end-of-life I do not think that her underlying problem is because of the penicillum If she were to start chemotherapy then We can restart antifungals, at this time I would most likelystart isavueconazole or if she is unable to tolerate that either then we may need to start her on Amphotericin since there is limited efficacy against Penicillium spp, this would be more prophylacticin nature to if she were to become immunocompromised I am reordering galactomannan and fungitell to assess for invasive disease Will follow up with her once she has seen Oncology at [facility] to decide next steps In the meanwhile, we will initiate PA for isavueconazole incase this needs to be started Recommendations: At this point, will wait and see what happens with her appointment at [facility], if she is to begin an immune depleting agent then she may need antifungal Tx, unfortunately since she was unable to tolerate Voriconazole, alternatives would be limited to Amphotericin or possible could try Isavuecona zole as is slightly better tolerated than other Azoles Will follow up with her in 1 month Will start PA process for Isavueconazole incase she does start chemo for antifungal coverage I am stopping ceftriaxone and doxycycline since I see no benefit or indication I have ordered Fungitell and galactomannan since patient never had these collected when I ordered them previously, follow this up outpatient ID to sign off This included performing a detailed chart review, reviewing and independently interpreting labs andother tests ordered by other providers, performing a history and physical, counseling the patient/family, discussing the case with primary team oncology and interventional pulmonary, performing a high degree of complex medical decision making, coordinating his/her/their plan of care and placing orders, the patient has a highly complex progressive condition which is life-threatening being her cancer complicated by colonization with fungus Isolation: none Communication: Thank you for the consult. Please do not hesitate to contact me via [facility] with issues or questions Jasmyn Lutz MD * Nroman Mcdowell-MD Bryan - 08/01/2025 9:48 AM EDTAssociated Order(s): IP CONSULT TO ONCOLOGY Requesting physician-Dr. Mederos reason for consultation #1 lung cancer, progressive/metastatic disease #2 history of low-grade B-cell lymphoma #3 goals of care HPI This is a 65-year-old lady, who follows with medical oncology as outpatient regarding management ofher progressive lung cancer. Patient is currently readmitted to hospital, with worsening dyspnea, and cough. She is found to have paroxysmal atrial fibrillation, hypoxic respiratory failure, currently on supplementary oxygen. Patient was on voriconazole for for treatment of penicillium fungal species that was detected at bronchoscopy, and that patient stopped as she was concerned about it contributing to atrial fibrillation. Patient's prior oncology history is reviewed. 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 This was an H. pylori negative lymphoma. PET CT scan revealed no disease apart from the gastric lesion. Bone marrow biopsy was negative for lymphoma. Empiric antibiotic therapy for Helicobacter did not remit the lymphoma, that persisted and the repeat endoscopy and biopsy. Dr. Garrido treated her with radiation 01/2010-03/2010 [facility]. She continued on clinical and imaging surveillance. In 07/2018, lung mass left upper lobe, was biopsy-proven pulmonary MALT. This was 4 cm, SUV max of 7.4. Genetic testing [employer] 88 negative. Bone marrow-negative for lymphoma, PET CT scan isolated lung lesion. She was evaluated at [facility] and completed radiation treatment with resolution. Left perinephric tissue mass was found in 10/[address] CAP, consistent with lymphoma on PET CT scan in 03/2020 size 6.7, SUV max 7.8. Thereafter patient had a CT CAP that showed renal mass 5 cm, and right upper lobe lung lesion 12 x 16 mm, and 6 mm right upper lobe lesion. There was a right lower lobe lesion 12 mm. RLL lung nodule was biopsied, revealed adenocarcinoma of pulmonary origin.She underwent biopsy of the nodule in the lower lobe of right lung, that demonstrated adenocarcinoma. Thereafter Dr. Perez took her to the OR, and performed a segmentectomy to remove the 2 tumors 1 in the upper lobe of right l lisa, that revealed a lipidic adenocarcinoma 1.1 cm T1 a N0, and the right lower lobe of lung, that revealed a 1.7 cm solid adenocarcinoma T1BN0, both quite different in morphology. Thereafter patient was started on systemic adjuvant therapy with immunotherapy, atezolizumab.She completed 9 cycles of atezolizumab She developed worsening psoriasis, uveitis as well as abnormal lung findings active on PET CT scan.On 07/08, Dr. Hernández performed bronchoscopy and further biopsies as well as extensive cytology. Results are available, indicates the recurrent adenocarcinoma in the right lower lobe nodule, unfortunately clinically equal and to metastatic lung cancer stage IV disease However she obtained a second opinion at [facility], and underwent further surgery. After detailed discussion patient chose to undergo right lower lobectomy, and lymph node sampling. This was on 10/04/2024. There after further discussion with [facility], patient completed 4 cycles of adjuvant chemotherapy with carboplatin and pemetrexed. This was from January until March 2025. Unfortunately further PET/CT imaging revealed persistent right-sided disease. Caris testing was obtained. PD-L1 was high, but she had severe grade 4 side effects of ophthalmitis, therefore not a candidate for further immunotherapy. KRAS G 12C mutation was present, and she would be a candidate for clinical trial versus newly approved medication adagrasib. Patient wished to have further evaluation at [facility] with Ana White and he has an appointment coming up on 08/05/2025 Past medical history-reviewed Social prazvov-hw-itnogv, alcohol use, family brother Darryl is involved in her care Family history-noncontributory Examination Frail middle-aged woman, very anxious supplementary oxygen on flow Vital signs Vitals: 08/01/25 0703 BP: 127/79 Pulse: 87 Resp: 20 Temp: 36.1 ??C (97 ??F) SpO2: 100% HEENT-pale Dry oral mucosa Neck-supple Lungs decreased breath sounds bilaterally at bases, and scattered rhonchi Heart sounds S1 and S2 regular Abdomen soft nontender No masses palpated Extremities no edema Extensive psoriatic lesions on knees bilateral Lab work-reviewed Lab Results Component Value Date WBC 12.4 (H) 07/31/2025 HGB 7.3 (L) 07/31/2025 HCT 23.7 (L) 07/31/2025 MCV 85.6 07/31/2025 PLT 334 07/31/2025 Lab Results Component Value Date NA 135 07/31/2025 K 3.7 07/31/2025 CL 97 07/31/2025 CO2 29 07/31/2025 GLUCOSE 134 (H) 07/31/2025 BUN 8 07/31/2025 CREATININE 0.59 07/31/2025 CALCIUM 8.9 07/31/2025 PROT 6.1 07/29/2025 ALBUMIN 2.5 (L) 07/29/2025 BILITOT 0.4 07/29/2025 AST 26 07/29/2025 ALT 24 07/29/2025 MG 1.9 07/30/2025 ALKPHOS 137 (H) 07/29/2025 EGFR 101 07/31/2025 Imaging-reviewed Results for orders placed during the hospital encounter of 07/29/25 CT Angio Chest wo and/or w Contrast Narrative INDICATION: PE suspected, high prob CT angiography chest with contrast. 3D Postprocessing. Comparison: CT/SR - CT ANGIO CHEST WO AND OR W CONTRAST - 07/11/25 15:57 EDT Findings: The heart is normal size. RV/LV ratio is normal. Calcification of the coronary vasculature. Unremarkable thoracic aorta and great vessels. No aneurysm. No acute pulmonary embolus. Bulky mediastinal and hilar adenopathy is present as before, demonstrating bilateral pulmonary arterial and venous encasement, as before. Largest of these is within the right hilar location measuring roughly 65 mm. There is encasement of the trachea, sabrina, as well as the bilateral bronchi. 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 No change in bilateral pulmonary nodules. Moderate apical predominant emphysema. Small veboc-ympaepv-czrc-left pleural effusions. The visualized upper abdomen is unremarkable. No acute fractures. Impression 1. No pulmonary embolus. 2. Bulky mediastinal and hilar adenopathy as before, demonstrating bronchovascular encasement as described above. 3. Small nnfom-malxfdz-hghg-left pleural effusions. 4. Coronary artery disease. This document has been electronically signed by: Mary Casas MD on 07/29/2025 19:24:26 Impression and plan 65-year-old lady with progressive pulmonary adenocarcinoma KRAS G 12C mutation, PD-L1 high, presenting with progressive dyspnea acute hypoxic respiratory failure, and paroxysmal atrial fibrillation, on the background of fungal species detected on bronchoscopy #1 systemic therapy for lung cancer-options including clinical trial, K-soraida G 12C mutation inhibitor adagrasib, conventional chemotherapy -She wishes to make a decision after the second opinion evaluation coming up on 08/05 at [facility] #2 addressed patient's concerns regarding recurrent atrial fibrillation, whether this is related tothe medication Vfend versus I also discussed the other possibility of the progressive lung tumor itself compressing the pulmonary arteries may be contributing Patient agrees to consider treatment of penicillium, will discuss with ID also #3 anemia-recommend PRBC transfusion x 1 she agrees #4 goals of care-discussed with the patient and also her brother Darryl was present on the phone. Patient is planning to obtain more support from her family. She does understand that her condition is serious and disease progression may lead to her requiring more support and care at home. Her goal is to remain at home. She is also in discussions with her work colleagues, a nurse who has volunteered to help her out. Will continue to follow, please call with any questions. documented in this encounter Plan of Treatment Upcoming Encounters Date Type Department Care Team (Latest Contact Info) Description 08/10/2025 10:25 AM EDT Hospital Encounter [facility] OR [address] [place] [address] [phone] Tomasa Kenny MD [address] [place] [address] [phone] 08/10/2025 10:25 AM EDT - 08/10/2025 12:50 PM EDT Surgery [facility] OR [address] [place] [address] [phone] Tomasa Kenny MD [address] [place] [address] [phone] FLEXIBLE/ RIGID BRONCHOSCOPY [08302 (CPT )] 08/12/2025 11:45 AM EDT Office Visit [facility] Hematology Oncology [address] [place] [phone] Norman Gatica MD [address] [place] [phone] 08/16/2025 3:30 PM EDT Office Visit Pulmonology - [place] [address] [phone] Tomasa Kenny MD [address] [place] [phone] 08/25/2025 8:15 AM EDT Appointment [facility] Xray [address] [place] [phone] 10/11/2025 3:30 PM EST Ancillary Procedure [facility] [address] [address] [place] [phone] Pending Results Name Type Priority Associated Diagnoses Date/Time Transfuse RBC Transfusion Administration Routine 08/01/2025 1:58 PM EDT Fungal ffkt-g-connke with reflex to titer Lab Routine 08/02/2025 6:26 PM EDT Aspergillus galactomannan antigen Lab Routine 08/02/2025 6:26 PM EDT Scheduled Orders Name Type Priority Associated Diagnoses Orde r Schedule Culture sputum Microbiology Routine Once for 1 Occurrences starting 07/29/2025 until 07/29/2025 Fungal runw-f-pqwxfi with reflex to titer Lab Routine Once for 1 Occurrences starting 08/02/2025 until 08/02/2025 Aspergillus galactomannan antigen Lab Routine Once for 1 Occurrences starting 08/02/2025 until 08/02/2025 Scheduled Procedures Name Priority Associated Diagnoses Date/Ti me BRONCHOSCOPY Lung nodule 08/10/2025 10:25 AM EDT BRONCHOSCOPY NODULE 1 ROBOT Lung nodule 08/10/2025 10:25 AM EDT BRONCHOSCOPY NODULE 2 ROBOT Lung nodule 08/10/2025 10:[address] TRACHEOBRONCHIAL STENT Lung nodule 08/10/2025 10:25 AM EDT Scheduled Referrals Name Type Priority Associated Diagnoses Order Schedule Ambulatory referral to Home Health Outpatient Referral Routine Atrial flutter with rapid ventricular response (CMS/HCC V24, CMS/HCC V28) Primary cancer of right lower lobe of lung (CMS/HCC V24, CMS/HCC V28) Primary malignant neoplasm of lung metastatic to other site, unspecified laterality (CMS/HCC V24, CMS/HCC V28) 1 Occurrences starting 08/03/2025 until 08/03/2026 documented as of this encounter Procedures Procedure Name Priority Date/Time Associated Diagnosis Comments PATHOLOGIST REVIEW BLOOD SMEAR Routine 08/02/2025 5:32 AM EDT CBC WITH AUTO DIFFERENTIAL Routine 08/02/2025 5:32 AM EDT CBC AND DIFFERENTIAL Routine 08/02/2025 5:32 AM EDT PHOSPHORUS Routine 08/02/2025 5:32 AM EDT MAGNESIUM Routine 08/02/2025 5:32 AM EDT BASIC METABOLIC PANEL Routine 08/02/2025 5:32 AM EDT TYPE AND SCREEN Routine 08/01/2025 11:50 AM EDT PREPARE RBC Routine 08/01/2025 11:24 AM EDT CBC WITH AUTO DIFFERENTIAL Routine 07/31/2025 5:24 AM EDT CBC AND DIFFERENTIAL Routine 07/31/2025 5:24 AM EDT BASIC METABOLIC PANEL Routine 07/31/2025 5:24 AM EDT ECG 12-LEAD STAT 07/30/2025 7:50 PM EDT ECG 12-LEAD Routine 07/30/2025 7:03 AM EDT TROPONIN I HIGH SENSITIVITY Routine 07/30/2025 6:22 AM EDT CBC WITH AUTO DIFFERENTIAL Routine 07/30/2025 6:22 AM EDT CBC AND DIFFERENTIAL Routine 07/30/2025 6:22 AM EDT MAGNESIUM Routine 07/30/2025 6:22 AM EDT BASIC METABOLIC PANEL Routine 07/30/2025 6:22 AM EDT TROPONIN I HIGH SENSITIVITY Routine 07/30/2025 12:03 AM EDT MRSA PCR STAT 07/29/2025 10:44 PM EDT TROPONIN I HIGH SENSITIVITY Timed 07/29/2025 7:02 PM EDT ECG 12-LEAD Routine 07/29/2025 7:[address] ANGIO CHEST WO AND/OR W CONTRAST STAT 07/29/2025 6:50 PM EDT Dyspnea, unspecified type TROPONIN I HIGH SENSITIVITY Timed 07/29/2025 5:08 PM EDT VITAMIN B12 AND FOLATE Add-On 07/29/2025 5:08 PM EDT PROCALCITONIN Add-On 07/29/2025 5:08 PM EDT CBC WITH AUTO DIFFERENTIAL STAT 07/29/2025 5:08 PM EDT IRON AND TIBC Add-On 07/29/2025 5:08 PM EDT RETICULOCYTE COUNT Add-On 07/29/2025 5: 08 PM EDT CBC AND DIFFERENTIAL STAT 07/29/2025 5:08 PM EDT B-TYPE NATRIURETIC PEPTIDE STAT 07/29/2025 5:08 PM EDT MAGNESIUM STAT 07/29/2025 5:08 PM EDT ETHANOL STAT Add-on 07/29/2025 5:08 PM EDT HEPATIC FUNCTION PANEL STAT Add-on 07/29/2025 5:08 PM EDT BASIC METABOLIC PANEL STAT 07/29/2025 5:08 PM EDT XR CHEST 2 VIEWS STAT 07/29/2025 3:12 PM EDT ECG 12-LEAD STAT 07/29/2025 3:02 PM EDT POCT GLUCOSE BLOOD Routine 07/29/2025 2: 58 PM EDT [id number], RSV, FLU A AND B QUALITATIVE RT-PCR, INTERNAL LAB STAT 07/29/2025 2:55 PM EDT documented in this encounter Results * Pathology review, blood smear (08/02/2025 5:32 AM EDT) Pathologist Review Blood Smear Granulocytosis : consider infection or other reactive causes. Normocytic anemia: smear not diagnostic of etiology. Target cells: consider liver disease or other etiology. 08/02/2025 10:14 AM EDT [facility] Blood Venous blood specimen / Unknown Venipuncture / Unknown 08/02/2025 5:32 AM EDT 08/02/2025 6:07 AM EDT Lindsay Mederos MD LAB BLOOD ORDERABLES Final Result [facility] [address] [place] [address], * (ABNORMAL) CBC auto differential (08/02/2025 5:32 AM EDT) WBC 31.0(H) 4.8 - 10.8 K/mcL LAB HEMETOLOGY METHOD 08/02/2025 8:21 AM EDT [facility] RBC 3.60(L) 3.80 - 4.80 M/mcL LAB HEMETOLOGY METHOD 08/02/2025 8:21 AM EDT [facility] Hemoglobin 9.4(L) 11.5 - 16.0 g/dL LAB HEMETOLOGY METHOD 08/02/2025 8:21 AM EDT [facility] Hematocrit 29.5(L) 35.0 - 47.0 % LAB HEMETOLOGY METHOD 08/02/2025 8:21 AM EDT [facility] MCV 83.1 79.0 - 98.0 FL LAB HEMETOLOGY METHOD 08/02/2025 8:21 AM [facility] MCH 26.5(L) 27.0 - 32.0 pcg LAB HEMETOLOGY METHOD 08/02/2025 8:21 AM [facility] MCHC 31.9(L) 32.0 - 37.0 g/dL LAB HEMETOLOGY METHOD 08/02/2025 8:21 AM [facility] RDW 18.5(H) 11.0 - 15.0 % LAB HEMETOLOGY METHOD 08/02/2025 8:21 AM [facility] Platelets 399 130 - 400 K/mcL LAB HEMETOLOGY METHOD 08/02/2025 8:21 AM [facility] MPV 9.6 7.0 - 11.0 FL LAB HEMETOLOGY METHOD 08/02/2025 8:21 AM [facility] NRBC 0.0 <1.0 % LAB HEMETOLOGY METHOD 08/02/2025 8:21 AM [facility] NRBC Absolute 0.00 <0.10 K/mcL LAB HEMETOLOGY METHOD 08/02/2025 8:21 AM [facility] Neutrophils Relative 90.5 % LAB HEMETOLOGY METHOD 08/02/2025 8:21 AM [facility] Comment:This is an appended report. These results have been appended to a previously preliminary verified report. Lymphocytes Relative 1.9 % LAB HEMETOLOGY METHOD 08/02/2025 8:21 AM [facility] Comment:This is an appended report. These results have been appended to a previously preliminary verified report. Monocytes Relative 5.7 % LAB HEMETOLOGY METHOD 08/02/2025 8:21 AM [facility] Comment:This is an appended report. These results have been appended to a previously preliminary verified report. Eosinophils Relative 0.0 % LAB HEMETOLOGY METHOD 08/02/2025 8:21 AM [facility] Comment:This is an appended report. These results have been appended to a previously preliminary verified report. Basophils Relative 0.2 % LAB HEMETOLOGY METHOD 08/02/2025 8:21 AM [facility] Comment:This is an appended report. These results have been appended to a previously preliminary verified report. Immature Granulocytes Relative 1.7 % LAB HEMETOLOGY METHOD 08/02/2025 8:21 AM [facility] Comment:This is an appended report. These results have been appended to a previously preliminary verified report. Neutrophils Absolute 28.08(H) 1.50 - 7.00 K/mcL LAB HEMETOLOGY METHOD 08/02/2025 8:21 AM [facility] Comment:This is an appended report. These results have been appended to a previously preliminary verified report. Lymphocytes Absolute 0.58(L) 1.00 - 5.00 K/mcL LAB HEMETOLOGY METHOD 08/02/2025 8:21 AM [facility] Comment:This is an appended report. These results have been appended to a previously preliminary verified report. Monocytes Absolute 1.78(H) 0.20 - 1.00 K/mcL LAB HEMETOLOGY METHOD 08/02/2025 8:21 AM [facility] Comment:This is an appended report. These results have been appended to a previously preliminary verified report. Eosinophils Absolute 0.00 0.00 - 0.50 K/mcL LAB HEMETOLOGY METHOD 08/02/2025 8:21 AM [facility] Comment:This is an appended report. These results have been appended to a previously preliminary verified report. Basophils Absolute 0.05 0.00 - 0.20 K/mcL LAB HEMETOLOGY METHOD 08/02/2025 8:21 AM [facility] Comment:This is an appended report. These results have been appended to a previously preliminary verified report. Immature Granulocytes Absolute 0.52(H) 0.00 - 0.03 K/mcL LAB HEMETOLOGY METHOD 08/02/2025 8:21 AM EDT [facility] Comment:This is an appended report. These results have been appended to a previously preliminary verified report. Blood Venous blood specimen / Unknown Venipuncture / Unknown 08/02/2025 5:32 AM EDT 08/02/2025 6:07 AM EDT Lindsay Mederos MD LAB BLOOD ORDERABLES Final Result Performing Organization Address City/[facility]/ZIP Co de Phone Number [facility] [address] [place] [address], [place] [phone] * Phosphorus (08/02/2025 5:32 AM EDT) Phosphorus 3.0 2.5 - 4.5 mg/dL LAB CHEMISTRY METHOD 08/02/2025 7:26 AM EDT [facility] Blood Venous blood specimen / Unknown Venipuncture / Unknown 08/02/2025 5:32 AM EDT 08/02/2025 6:07 AM EDT Lindsay Mederos MD LAB BLOOD ORDERABLES Final Result [facility] [address] [place] [address], [place] [phone] * Magnesium (08/02/2025 5:32 AM EDT) Magnesium 1.9 1.9 - 2.6 mg/dL LAB CHEMISTRY METHOD 08/02/2025 7:26 AM EDT [facility] Blood Venous blood specimen / Unknown Venipuncture / Unknown 08/02/2025 5:32 AM EDT 08/02/2025 6:07 AM EDT us Lindsay Mederos MD LAB BLOOD ORDERABLES Final Result [facility] [address] [place] [address], * (ABNORMAL) Basic metabolic panel (08/02/2025 5:32 AM EDT) Sodium 138 133 - 145 mmol/L LAB CHEMISTRY METHOD 08/02/2025 7:28 AM [facility] Potassium 4.0 3.5 - 5.5 mmol/L LAB CHEMISTRY METHOD 08/02/2025 7:28 AM [facility] Chloride 101 96 - 110 mmol/L LAB CHEMISTRY METHOD 08/02/2025 7:28 AM [facility] CO2 30 21 - 32 mmol/L LAB CHEMISTRY METHOD 08/02/2025 7:28 AM [facility] Anion Gap 7 3 - 11 LAB CHEMISTRY METHOD 08/02/2025 7:28 AM [facility] Glucose 142(H) 70 - 100 mg/dL LAB CHEMISTRY METHOD 08/02/2025 7:28 AM [facility] BUN 13 5 - 25 mg/dL LAB CHEMISTRY METHOD 08/02/2025 7:28 AM [facility] Creatinine 0.67 0.50 - 1.10 mg/dL LAB CHEMISTRY METHOD 08/02/2025 7:28 AM [facility] eGFR 98 >=60 mL/min/1. 73m2 LAB CHEMISTRY METHOD 08/02/2025 7:28 AM [facility] Comment:Calculation based on the Chronic Kidney Disease Epidemiology Collaboration (CKD-EPI) equation refit without adjustment for race. BUN/Creatinine Ratio 19.4 LAB CHEMISTRY METHOD 08/02/2025 7:28 AM [facility] Calcium 9.5 8.5 - 10.5 mg/dL LAB CHEMISTRY METHOD 08/02/2025 7:28 AM EDT [facility] Blood Venous blood specimen / Unknown Venipuncture / Unknown 08/02/2025 5:32 AM EDT 08/02/2025 6:07 AM EDT Lindsay Mederos MD LAB BLOOD ORDERABLES Final Result Performing Organization Address [facility]/ZIP Co de Phone Number [facility] [address] [place] [address], [place] [phone] * Type and screen (08/01/2025 11:50 AM EDT) ABO Group A 08/01/2025 1:09 PM EDT [facility] Rh Type Positive 08/01/2025 1:09 PM EDT [facility] Antibody Screen Negative 08/01/2025 1:09 PM EDT [facility] Blood Venous blood specimen / Unknown Venipuncture / Unknown 08/01/2025 11:50 AM EDT 08/01/2025 12:04 PM EDT Lindsay Mederos MD LAB BLOOD BANK TEST ORDERAB LES Final Result Performing Organization Address [facility]/ZIP Co de Phone Number [facility] [address] [place] [address], [place] [phone] * Prepare RBC: 1 Units (08/01/2025 11:24 AM EDT) Product Code [id number] 08/01/2025 1:59 PM EDT [facility] Unit Number [id number] 08/01/20 1:59 PM EDT [facility] Crossmatch Compatible 08/01/2025 1:12 PM EDT [facility] Dispense Status Transfused 08/01/2025 1:59 PM EDT [facility] Unit ABO Rh APOS 08/01/2025 1:59 PM EDT [facility] Unit Expiration Date Time [id number] 08/01/2025 1:59 PM EDT [facility] Unit Blood Type 6200 08/01/2025 1:59 PM EDT [facility] Blood Venous blood specimen / Unknown 08/01/2025 11:24 AM EDT 08/01/2025 12:04 PM EDT Lindsay Mederos MD BLOOD BANK PRODUCT ORDERABL ES Final Result [facility] [address] [place] [address], * (ABNORMAL) CBC auto differential (07/31/2025 5:24 AM EDT) WBC 12.4(H) 4.8 - 10.8 K/mcL LAB HEMETOLOGY METHOD 07/31/2025 6:50 AM EDT [facility] RBC 2.80(L) 3.80 - 4.80 M/mcL LAB HEMETOLOGY METHOD 07/31/2025 6:50 AM [facility] Hemoglobin 7.3(L) 11.5 - 16.0 g/dL LAB HEMETOLOGY METHOD 07/31/2025 6:50 AM EDT [facility] Hematocrit 23.7(L) 35.0 - 47.0 % LAB HEMETOLOGY METHOD 07/31/2025 6:50 AM EDT [facility] MCV 85.6 79.0 - 98.0 FL LAB HEMETOLOGY METHOD 07/31/2025 6:50 AM [facility] MCH 26.4(L) 27.0 - 32.0 pcg LAB HEMETOLOGY METHOD 07/31/2025 6:50 AM [facility] MCHC 30.8(L) 32.0 - 37.0 g/dL LAB HEMETOLOGY METHOD 07/31/2025 6:50 AM [facility] RDW 17.2(H) 11.0 - 15.0 % LAB HEMETOLOGY METHOD 07/31/2025 6:50 AM [facility] Platelets 334 130 - 400 K/mcL LAB HEMETOLOGY METHOD 07/31/2025 6:50 AM [facility] MPV 10.0 7.0 - 11.0 FL LAB HEMETOLOGY METHOD 07/31/2025 6:50 AM [facility] NRBC 0.0 <1.0 % LAB HEMETOLOGY METHOD 07/31/2025 6:50 AM [facility] NRBC Absolute 0.00 <0.10 K/mcL LAB HEMETOLOGY METHOD 07/31/2025 6:50 AM [facility] Neutrophils Relative 81.3 % LAB HEMETOLOGY METHOD 07/31/2025 6:50 AM [facility] Lymphocytes Relative 4.4 % LAB HEMETOLOGY METHOD 07/31/2025 6:50 AM [facility] Monocytes Relative 11.4 % LAB HEMETOLOGY METHOD 07/31/2025 6:50 AM [facility] Eosinophils Relative 1.8 % LAB HEMETOLOGY METHOD 07/31/2025 6:50 AM [facility] Basophils Relative 0.4 % LAB HEMETOLOGY METHOD 07/31/2025 6:50 AM [facility] Immature Granulocytes Relative 0.7 % LAB HEMETOLOGY METHOD 07/31/2025 6:50 AM [facility] Neutrophils Absolute 10.07(H) 1.50 - 7.00 K/mcL LAB HEMETOLOGY METHOD 07/31/2025 6:50 AM EDT [facility] Lymphocytes Absolute 0.54(L) 1.00 - 5.00 K/[facility] LAB HEMETOLOGY METHOD 07/31/2025 6:50 AM EDT [facility] Monocytes Absolute 1.41(H) 0.20 - 1.00 K/mcL LAB HEMETOLOGY METHOD 07/31/2025 6:50 AM EDT [facility] Eosinophils Absolute 0.22 0.00 - 0.50 K/[facility] LAB HEMETOLOGY METHOD 07/31/2025 6:50 AM EDT [facility] Basophils Absolute 0.05 0.00 - 0.20 K/[facility] LAB HEMETOLOGY METHOD 07/31/2025 6:50 AM EDT [facility] Immature Granulocytes Absolute 0.09(H) 0.00 - 0.03 K/[facility] LAB HEMETOLOGY METHOD 07/31/2025 6:50 AM EDT [facility] Blood Venous blood specimen / Unknown Venipuncture / Unknown 07/31/2025 5:24 AM EDT 07/31/2025 6:27 AM EDT us Lindsay Mederos MD LAB BLOOD ORDERABLES Final Result [facility] [address] [place] [address], * (ABNORMAL) Basic metabolic panel (07/31/2025 5:24 AM EDT) Sodium 135 133 - 145 mmol/L LAB CHEMISTRY METHOD 07/31/2025 7:11 AM EDT [facility] Potassium 3.7 3.5 - 5.5 mmol/L LAB CHEMISTRY METHOD 07/31/2025 7:11 AM EDT [facility] Chloride 97 96 - 110 mmol/L LAB CHEMISTRY METHOD 07/31/2025 7:11 AM [facility] CO2 29 21 - 32 mmol/L LAB CHEMISTRY METHOD 07/31/2025 7:11 AM [facility] Anion Gap 9 3 - 11 LAB CHEMISTRY METHOD 07/31/2025 7:11 AM [facility] Glucose 134(H) 70 - 100 mg/dL LAB CHEMISTRY METHOD 07/31/2025 7:11 AM [facility] BUN 8 5 - 25 mg/dL LAB CHEMISTRY METHOD 07/31/2025 7:11 AM [facility] Creatinine 0.59 0.50 - 1.10 mg/dL LAB CHEMISTRY METHOD 07/31/2025 7:11 AM [facility] eGFR 101 >=60 mL/min/1. 73m2 LAB CHEMISTRY METHOD 07/31/2025 7:11 AM [facility] Comment:Calculation based on the Chronic Kidney Disease Epidemiology Collaboration (CKD-EPI) equation refit without adjustment for race. BUN/Creatinine Ratio 13.6 LAB CHEMISTRY METHOD 07/31/2025 7:11 AM [facility] Calcium 8.9 8.5 - 10.5 mg/dL LAB CHEMISTRY METHOD 07/31/2025 7:11 AM [facility] Blood Venous blood specimen / Unknown Venipuncture / Unknown 07/31/2025 5:24 AM EDT 07/31/2025 6:27 AM EDT us Lindsay Mederos MD LAB BLOOD ORDERABLES Final Result [facility] [address] [place] [address], * ECG 12 lead (07/30/2025 7:50 PM EDT) Ventricular Rate ECG 138 BPM GEMUSE Atrial Rate 138 BPM GEMUSE QRS Duration 82 ms GEMUSE Q-T Interval 334 ms GEMUSE QTc 506 ms GEMUSE R Hudson 25 degrees GEMUSE T Hudson 59 degrees GEMUSE ECG Interpretation sinus rhythm changed to Atrial fibrillation with rapid ventricular response Nonspecific T wave abnormality Abnormal ECG When compared with ECG of 30-JUL-2025 07:03, Atrial fibrillation has replaced Sinus rhythm Confirmed by Anabell HENRIQUEZ YUFENG ([id number]) on 08/02/2025 8:33:57 PM GEMUSE 07/30/2025 7:50 PM EDT 08/02/2025 8:33 PM EDT us Lindsay Mederos MD ECG ORDERABLES Final Resul t Performing Organization Address City/[facility] Co de Phone Number G[facility] * ECG 12 lead (07/30/2025 7:03 AM EDT) Ventricular Rate ECG 143 BPM GEMUSE Atrial Rate 147 BPM GEMUSE QRS Duration 74 ms GEMUSE Q-T Interval 370 ms GEMUSE QTc 571 ms GEMUSE P Wave Hudson 70 degrees GEMUSE R Hudson 2 degrees GEMUSE T Hudson 53 degrees GEMUSE ECG Interpretation Critical Test Result: High HR , AV Block Sinus tachycardia with Premature ventricular complexes or Fusion complexes Abnormal ECG When compared with ECG of 29-JUL-2025 19:01, (unconfirmed) Fusion complexes are now Present Premature ventricular complexes are now Present Premature supraventricular complexes are no longer Present Sinus rhythm is now with fusion complexes Vent. rate has increased BY 52 BPM Confirmed by Anabell WEISS, CORDELL ([id number]) on 07/31/2025 3:27:29 PM GEMUSE 07/30/2025 7:03 AM EDT 07/31/2025 3:27 PM EDT us Lindsay Mederos MD ECG ORDERABLES Final Resul t [facility] * (ABNORMAL) CBC auto differential (07/30/2025 6:22 AM EDT) WBC 11.4(H) 4.8 - 10.8 K/[facility] ATLANTALOGY METHOD 07/30/2025 7:03 AM [facility] RBC 3.00(L) 3.80 - 4.80 M/mcL LAB HEMETOLOGY METHOD 07/30/2025 7:03 AM [facility] Hemoglobin 8.0(L) 11.5 - 16.0 g/dL LAB HEMETOLOGY METHOD 07/30/2025 7:03 AM [facility] Hematocrit 26.1(L) 35.0 - 47.0 % LAB HEMETOLOGY METHOD 07/30/2025 7:03 AM [facility] MCV 86.1 79.0 - 98.0 FL LAB HEMETOLOGY METHOD 07/30/2025 7:03 AM [facility] MCH 26.4(L) 27.0 - 32.0 pcg LAB HEMETOLOGY METHOD 07/30/2025 7:03 AM [facility] MCHC 30.7(L) 32.0 - 37.0 g/dL LAB HEMETOLOGY METHOD 07/30/2025 7:03 AM [facility] RDW 17.2(H) 11.0 - 15.0 % LAB HEMETOLOGY METHOD 07/30/2025 7:03 AM [facility] Platelets 353 130 - 400 K/mcL LAB HEMETOLOGY METHOD 07/30/2025 7:03 AM [facility] MPV 10.1 7.0 - 11.0 FL LAB HEMETOLOGY METHOD 07/30/2025 7:03 AM [facility] NRBC 0.0 <1.0 % LAB HEMETOLOGY METHOD 07/30/2025 7:03 AM [facility] NRBC Absolute 0.00 <0.10 K/mcL LAB HEMETOLOGY METHOD 07/30/2025 7:03 AM [facility] Neutrophils Relative 82.1 % LAB HEMETOLOGY METHOD 07/30/2025 7:03 AM [facility] Lymphocytes Relative 5.3 % LAB HEMETOLOGY METHOD 07/30/2025 7:03 AM [facility] Monocytes Relative 8.9 % LAB HEMETOLOGY METHOD 07/30/2025 7:03 AM [facility] Eosinophils Relative 2.8 % LAB HEMETOLOGY METHOD 07/30/2025 7:03 AM [facility] Basophils Relative 0.3 % LAB HEMETOLOGY METHOD 07/30/2025 7:03 AM [facility] Immature Granulocytes Relative 0.6 % LAB HEMETOLOGY METHOD 07/30/2025 7:03 AM [facility] Neutrophils Absolute 9.37(H) 1.50 - 7.00 K/mcL LAB HEMETOLOGY METHOD 07/30/2025 7:03 AM [facility] Lymphocytes Absolute 0.60(L) 1.00 - 5.00 K/mcL LAB HEMETOLOGY METHOD 07/30/2025 7:03 AM [facility] Monocytes Absolute 1.02(H) 0.20 - 1.00 K/mcL LAB HEMETOLOGY METHOD 07/30/2025 7:03 AM [facility] Eosinophils Absolute 0.32 0.00 - 0.50 K/mcL LAB HEMETOLOGY METHOD 07/30/2025 7:03 AM [facility] Basophils Absolute 0.03 0.00 - 0.20 K/mcL LAB HEMETOLOGY METHOD 07/30/2025 7:03 AM [facility] Immature Granulocytes Absolute 0.07(H) 0.00 - 0.03 K/mcL LAB HEMETOLOGY METHOD 07/30/2025 7:03 AM [facility] Blood Venous blood specimen / Unknown Venipuncture / Unknown 07/30/2025 6:22 AM EDT 07/30/2025 6:34 AM EDT us Phuc Velásquez MD LAB BLOOD ORDERABLES Final Result Performing Organization Address [facility]/ZIP Co de Phone Number [facility] [address] [place] [address], [place] [phone] * (ABNORMAL) Troponin I high sensitivity (07/30/2025 6:22 AM EDT) Pathologist [facility] High Sensitivity Troponin I 225(HH) <=54 ng/L LAB CHEMISTRY METHOD 07/30/2025 7:24 AM EDT [facility] Blood Venous blood specimen / Unknown Venipuncture / Unknown 07/30/2025 6:22 AM EDT 07/30/2025 6:33 AM EDT Narrative [facility] - 07/30/2025 7:24 AM EDT High levels of biotin in samples may falsely decrease hsTroponin values. Use caution when interpreting hsTroponin results in patients taking biotin who exhibit renal impairment (eGFR <60) or in patients taking more than 20 mg/day of biotin. us Phuc Velásquez MD LAB BLOOD ORDERABLES Final Result Performing Organization Address [facility]/ZIP Co de Phone Number [facility] [address] [place] [address], [place] [phone] * Magnesium (07/30/2025 6:22 AM EDT) [facility] Magnesium 1.9 1.9 - 2.6 mg/dL LAB CHEMISTRY METHOD 07/30/2025 7:31 AM EDT [facility] Blood Venous blood specimen / Unknown Venipuncture / Unknown 07/30/2025 6:22 AM EDT 07/30/2025 6:33 AM EDT us Phuc Velásquez MD LAB BLOOD ORDERABLES Final Result [facility] [address] [place] [address], * (ABNORMAL) Basic metabolic panel (07/30/2025 6:22 AM EDT) Sodium 134 133 - 145 mmol/L LAB CHEMISTRY METHOD 07/30/2025 7:31 AM [facility] Potassium 3.7 3.5 - 5.5 mmol/L LAB CHEMISTRY METHOD 07/30/2025 7:31 AM [facility] Chloride 98 96 - 110 mmol/L LAB CHEMISTRY METHOD 07/30/2025 7:31 AM [facility] CO2 31 21 - 32 mmol/L LAB CHEMISTRY METHOD 07/30/2025 7:31 AM [facility] Anion Gap 5 3 - 11 LAB CHEMISTRY METHOD 07/30/2025 7:31 AM [facility] Glucose 138(H) 70 - 100 mg/dL LAB CHEMISTRY METHOD 07/30/2025 7:31 AM [facility] BUN 9 5 - 25 mg/dL LAB CHEMISTRY METHOD 07/30/2025 7:31 AM [facility] Creatinine 0.58 0.50 - 1.10 mg/dL LAB CHEMISTRY METHOD 07/30/2025 7:31 AM [facility] eGFR 101 >=60 mL/min/1. 73m2 LAB CHEMISTRY METHOD 07/30/2025 7:31 AM [facility] Comment:Calculation based on the Chronic Kidney Disease Epidemiology Collaboration (CKD-EPI) equation refit without adjustment for race. BUN/Creatinine Ratio 15.5 LAB CHEMISTRY METHOD 07/30/2025 7:31 AM [facility] Calcium 8.8 8.5 - 10.5 mg/dL LAB CHEMISTRY METHOD 07/30/2025 7:31 AM EDT [facility] Blood Venous blood specimen / Unknown Venipuncture / Unknown 07/30/2025 6:22 AM EDT 07/30/2025 6:33 AM EDT Phuc Velásquez MD LAB BLOOD ORDERABLES Final Result Performing Organization Address [facility] Co de Phone Number [facility] [address] [place] [address], [place] [phone] * (ABNORMAL) Troponin I high sensitivity (07/30/2025 12:03 AM EDT) [facility] High Sensitivity Troponin I 276(HH) <=54 ng/L LAB CHEMISTRY METHOD 07/30/2025 1:00 AM EDT [facility] Blood Venous blood specimen / Unknown Venipuncture / Unknown 07/30/2025 12:03 AM EDT 07/30/2025 12:25 AM EDT Narrative [facility] - 07/30/2025 1:00 AM EDT High levels of biotin in samples may falsely decrease hsTroponin values. Use caution when interpreting hsTroponin results in patients taking biotin who exhibit renal impairment (eGFR <60) or in patients taking more than 20 mg/day of biotin. Catrachito PAIZ LAB BLOOD ORDERABLES Final Resu lt Performing Organization Address City/[facility]/ZIP Co de Phone Number [facility] [address] [place] [address], [place] [phone] * MRSA molecular study (07/29/2025 10:44 PM EDT) [facility] MRSA Screen PCR Not Detected Not Detected LAB MICROBIOLOGY METHOD 07/30/2025 12:09 AM EDT [facility] Swab Both anterior nares / Unknown Non-blood Collection / Unknown 07/29/2025 10:44 PM EDT 07/29/2025 10:56 PM EDT Phuc Velásquez MD LAB MICROBIOLOGY - GENERAL ORDERABLES Final Result Performing Organization Address [facility]/ZIP Co de Phone Number [facility] [address] [place] [address], [place] [phone] * (ABNORMAL) Troponin I high sensitivity (07/29/2025 7:02 PM EDT) [facility] High Sensitivity Troponin I 292(HH) <=54 ng/L LAB CHEMISTRY METHOD 07/29/2025 7:49 PM EDT [facility] Blood Venous blood specimen / Unknown Venipuncture / Unknown 07/29/2025 7:02 PM EDT 07/29/2025 7:11 PM EDT Narrative [facility] - 07/29/2025 7:49 PM EDT High levels of biotin in samples may falsely decrease hsTroponin values. Use caution when interpreting hsTroponin results in patients taking biotin who exhibit renal impairment (eGFR <60) or in patients taking more than 20 mg/day of biotin. Jean Claude Reynoso MD LAB BLOOD ORDERABLES Final Result Performing Organization Address [facility] Co de Phone Number [facility] [address] [place] [address], [place] [phone] * ECG 12 lead (07/29/2025 7:01 PM EDT) [facility] Ventricular Rate ECG 91 BPM GEMUSE Atrial Rate 81 BPM GEMUSE P-R Interval 146 ms GEMUSE QRS Duration 76 ms GEMUSE Q-T Interval 374 ms GEMUSE QTc 460 ms GEMUSE P Wave Hudson 65 degrees GEMUSE R [place] 27 degrees GEMUSE T [place] 61 degrees GEMUSE ECG Interpretation Sinus rhythm with Premature supraventricular complexes Possible Left atrial enlargement Borderline ECG When compared with ECG of 29-JUL-2025 15:02, Premature supraventricular complexes are now Present Confirmed by Anabell WEISS JAMES ([id number]) on 07/31/2025 3:15:46 PM [facility] 07/29/2025 7:01 PM EDT 07/31/2025 3:15 PM EDT us Lindsay Mederos MD ECG ORDERABLES Final Resul t GEMUSE * CT Angio Chest wo and/or w Contrast (07/29/2025 6:50 PM EDT) Anatomical Region Laterality Modality Body Computed Tomogra phy 07/29/2025 7:24 PM EDT Impressions 07/29/2025 7:24 PM EDT 1. No pulmonary embolus. 2. Bulky mediastinal and hilar adenopathy as before, demonstrating bronchovascular encasement as described above. 3. Small xolle-oqeuxrm-gove-left pleural effusions. 4. Coronary artery disease. This document has been electronically signed by: Mary Casas MD on 07/29/2025 19:24:26 Narrative 07/29/2025 7:24 PM EDT INDICATION: PE suspected, high prob CT angiography chest with contrast. 3D Postprocessing. Comparison: CT/SR - CT ANGIO CHEST WO AND OR W CONTRAST - 07/11/25 15:57 EDT Findings: The heart is normal size. RV/LV ratio is normal. Calcification of the coronary vasculature. Unremarkable thoracic aorta and great vessels. No aneurysm. No acute pulmonary embolus. Bulky mediastinal and hilar adenopathy is present as before, demonstrating bilateral pulmonary arterial and venous encasement, as before. Largest of these is within the right hilar location measuring roughly 65 mm. There is encasement of the trachea, sabrina, as well as the bilateral bronchi. 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 No change in bilateral pulmonary nodules. Moderate apical predominant emphysema. Small kioyd-fneoybr-hugx-left pleural effusions. The visualized upper abdomen is unremarkable. No acute fractures. Procedure Note Mary Casas MD - 07/29/2025 INDICATION: PE suspected, high prob CT angiography chest with contrast. 3D Postprocessing. Comparison: CT/SR - CT ANGIO CHEST WO AND OR W CONTRAST - 07/11/25 15:57 EDT Findings: The heart is normal size. RV/LV ratio is normal. Calcification of the coronary vasculature. Unremarkable thoracic aorta and great vessels. No aneurysm. No acute pulmonary embolus. Bulky mediastinal and hilar adenopathy is present as before,demonstrating bilateral pulmonary arterial and venous encasement, as before. Largestof these is within the right hilar location measuring roughly 65 mm. Thereis encasement of the trachea, sabrina, as well as the bilateral bronchi.There is abrupt truncation of the right mainstem bronchus, as before. No change in bilateral pulmonary nodules. Moderate apical predominant emphysema. Small qbnvr-auoxjge-gpnc-left pleural effusions. The visualized upper abdomen is unremarkable. No acute fractures. IMPRESSION: 1. No pulmonary embolus. 2. Bulky mediastinal and hilar adenopathy as before, demonstrating bronchovascular encasement as described above. 3. Small nhbdc-wzalrmy-mafl-left pleural effusions. 4. Coronary artery disease. This document has been electronically signed by: Mary Casas MD on 07/29/2025 19:24:26 Jean Claude Reynoso MD IMG CT PROCEDURES Final Res ult * (ABNORMAL) Vitamin B12 and folate (07/29/2025 5:08 PM EDT) [facility] Vitamin B-12 1,829(H) 250 - 900 pcg/mL LAB CHEMISTRY METHOD 07/29/2025 9:27 PM EDT [facility] Folate >20.0(H) 2.8 - 17.0 ng/ml LAB CHEMISTRY METHOD 07/29/2025 9:27 PM EDT [facility] Blood Venous blood specimen / Unknown Venipuncture / Unknown 07/29/2025 5:08 PM EDT 07/29/2025 5:46 PM EDT Phuc Velásquez MD LAB BLOOD ORDERABLES Final Result [facility] [address] [place] [address], * (ABNORMAL) Iron and TIBC (07/29/2025 5:08 PM EDT) Iron 14(L) 40 - 150 mcg/dL LAB CHEMISTRY METHOD 07/29/2025 8:39 PM EDT [facility] TIBC 253 250 - 450 mcg/dL LAB CHEMISTRY METHOD 07/29/2025 8:39 PM EDT [facility] Iron Saturation 6(L) 15 - 50 % LAB CHEMISTRY METHOD 07/29/2025 8:39 PM EDT [facility] Blood Venous blood specimen / Unknown Venipuncture / Unknown 07/29/2025 5:08 PM EDT 07/29/2025 5:46 PM EDT us Phuc Velásquez MD LAB BLOOD ORDERABLES Final Result [facility] [address] [place] [address], * (ABNORMAL) Reticulocyte count (07/29/2025 5:08 PM EDT) Retic Ct Abs 0.100(H) 0.030 - 0.090 M/mcL LAB HEMETOLOGY METHOD 07/29/2025 8:30 PM EDT [facility] Retic Ct Pct 3.4(H) 0.7 - 1.7 % LAB HEMETOLOGY METHOD 07/29/2025 8:30 PM EDT [facility] Immature Retic Fract 32.4(H) 2.3 - 15.9 % LAB HEMETOLOGY METHOD 07/29/2025 8:30 PM EDT [facility] Reticulocyte Hemoglobin 28.3(L) >29.0 pcg LAB HEMETOLOGY METHOD 07/29/2025 8:30 PM EDT [facility] Blood Venous blood specimen / Unknown Venipuncture / Unknown 07/29/2025 5:08 PM EDT 07/29/2025 5:46 PM EDT us Phuc Velásquez MD LAB BLOOD ORDERABLES Final Result Performing Organization Address [facility]/ZIP Co de Phone Number [facility] [address] [place] [address], [place] [phone] * Procalcitonin (07/29/2025 5:08 PM EDT) Procalcitonin 0.11 <=0.16 ng/mL LAB CHEMISTRY METHOD 07/30/2025 10:13 AM EDT [facility] Blood Venous blood specimen / Unknown Venipuncture / Unknown 07/29/2025 5:08 PM EDT 07/29/2025 5:46 PM EDT Narrative [facility] - 07/30/2025 10:13 AM EDT Procalcitonin > 2.00 ng/ml: Procalcitonin Levels above 2.00 ng/ml, on the first day of ICU admission represent a high risk for progression to severe sepsis and/or septic shock. Procalcitonin < 0.50 ng/ml: Procalcitonin levels below 0.50 ng/ml on the first day of ICU admission represent a low risk for progression to severe sepsis and/or septic shock. Concentrations <0.5 ng/mL do not exclude an infection, on account of local ized infections (without systemic signs) which can be associated with such low concentrations, or a systemic infection in its initial stages (<6 hours). Furthermore, increased procalcitonin can occur without infection. PCT concentrations between 0.5 and 2.0 ng/mL should be interpreted taking into account the patient's history. It is recommended to retest PCT within 6-24 hours if any concentrations <2.0 ng/mL are obtained. us Phuc Velásquez MD LAB BLOOD ORDERABLES Final Result Performing Organization Address [facility]/ZIP Co de Phone Number [facility] [address] [place] [address], [place] [phone] * Ethanol (07/29/2025 5:08 PM EDT) Pathologist [facility] Ethanol Level <3 0 - 10 mg/dL LAB CHEMISTRY METHOD 07/29/2025 10:14 PM [facility] Blood Venous blood specimen / Unknown Venipuncture / Unknown 07/29/2025 5:08 PM EDT 07/29/2025 5:46 PM EDT Phuc Velásquez MD LAB BLOOD ORDERABLES Final Result [facility] [address] [place] [address], * (ABNORMAL) Hepatic function panel (07/29/2025 5:08 PM EDT) Pathologist [facility] Total Protein 6.1 6.0 - 8.0 g/dL LAB CHEMISTRY METHOD 07/29/2025 8:24 PM [facility] Albumin 2.5(L) 3.2 - 5.0 g/dL LAB CHEMISTRY METHOD 07/29/2025 8:24 PM [facility] Total Bilirubin 0.4 0.0 - 1.4 mg/dL LAB CHEMISTRY METHOD 07/29/2025 8:24 PM [facility] Bilirubin, Direct 0.1 0.0 - 0.3 mg/dL LAB CHEMISTRY METHOD 07/29/2025 8:24 PM [facility] Bilirubin, Indirect 0.3 0.0 - 1.1 mg/dL LAB CHEMISTRY METHOD 07/29/2025 8:24 PM [facility] ALT (SGPT) 24 10 - 60 unit/L LAB CHEMISTRY METHOD 07/29/2025 8:24 PM [facility] AST (SGOT) 26 10 - 42 unit/L LAB CHEMISTRY METHOD 07/29/2025 8:24 PM [facility] Alkaline Phosphatase 137(H) 42 - 121 unit/L LAB CHEMISTRY METHOD 07/29/2025 8:24 PM EDT [facility] Blood Venous blood specimen / Unknown Venipuncture / Unknown 07/29/2025 5:08 PM EDT 07/29/2025 5:46 PM EDT Jean Claude Reynoso MD LAB BLOOD ORDERABLES Final Result Performing Organization Address City/[facility]/ZIP Co de Phone Number [facility] [address] [place] [address], [place] [phone] * B-type natriuretic peptide (07/29/2025 5:08 PM EDT) [facility] BNP 35 <=100 pcg/mL LAB CHEMISTRY METHOD 07/29/2025 6:33 PM EDT [facility] Blood Venous blood specimen / Unknown Venipuncture / Unknown 07/29/2025 5:08 PM EDT 07/29/2025 5:45 PM EDT Jean Claude Reynoso MD LAB BLOOD ORDERABLES Final Result Performing Organization Address [facility] Co de Phone Number [facility] [address] [place] [address], [place] [phone] * (ABNORMAL) CBC auto differential (07/29/2025 5:08 PM EDT) [facility] WBC 11.7(H) 4.8 - 10.8 K/mcL LAB HEMETOLOGY METHOD 07/29/2025 5:55 PM EDT [facility] RBC 2.90(L) 3.80 - 4.80 M/mcL LAB HEMETOLOGY METHOD 07/29/2025 5:55 PM EDT [facility] Hemoglobin 7.8(L) 11.5 - 16.0 g/dL LAB HEMETOLOGY METHOD 07/29/2025 5:55 PM EDT [facility] Hematocrit 24.6(L) 35.0 - 47.0 % LAB HEMETOLOGY METHOD 07/29/2025 5:55 PM EDT [facility] MCV 84.0 79.0 - 98.0 FL LAB HEMETOLOGY METHOD 07/29/2025 5:55 PM EDT [facility] MCH 26.6(L) 27.0 - 32.0 pcg LAB HEMETOLOGY METHOD 07/29/2025 5:55 PM EDT [facility] MCHC 31.7(L) 32.0 - 37.0 g/dL LAB HEMETOLOGY METHOD 07/29/2025 5:55 PM EDT [facility] RDW 17.2(H) 11.0 - 15.0 % LAB HEMETOLOGY METHOD 07/29/2025 5:55 PM [facility] Platelets 369 130 - 400 K/mcL LAB HEMETOLOGY METHOD 07/29/2025 5:55 PM EDT [facility] MPV 10.0 7.0 - 11.0 FL LAB HEMETOLOGY METHOD [facility]/29[facility]2025 [facility] NRBC 0.0 <1.0 % LAB HEMETOLOGY METHOD 07/29/2025 5:55 PM [facility] NRBC Absolute 0.00 <0.10 K/mcL LAB HEMETOLOGY METHOD 07/29/2025 5:55 PM EDT [facility] Neutrophils Relative 80.4 % LAB HEMETOLOGY METHOD 07/29/2025 5:55 PM EDT [facility] Lymphocytes Relative 4.7 % LAB HEMETOLOGY METHOD 07/29/2025 5:55 PM [facility] Monocytes Relative 11.3 % LAB HEMETOLOGY METHOD 07/29/2025 5:55 PM EDT [facility] Eosinophils Relative 2.6 % LAB HEMETOLOGY METHOD 07/29/2025 5:55 PM EDT [facility] Basophils Relative 0.3 % LAB HEMETOLOGY METHOD 07/29/2025 5:55 PM EDT [facility] Immature Granulocytes Relative 0.7 % LAB HEMETOLOGY METHOD 07/29/2025 5:55 PM EDT [facility] Neutrophils Absolute 9.43(H) 1.50 - 7.00 K/mcL LAB HEMETOLOGY METHOD 07/29/2025 5:55 PM EDT [facility] Lymphocytes Absolute 0.55(L) 1.00 - 5.00 K/mcL LAB HEMETOLOGY METHOD 07/29/2025 5:55 PM EDT [facility] Monocytes Absolute 1.33(H) 0.20 - 1.00 K/mcL LAB HEMETOLOGY METHOD 07/29/2025 5:55 PM EDT [facility] Eosinophils Absolute 0.30 0.00 - 0.50 K/mcL LAB HEMETOLOGY METHOD 07/29/2025 5:55 PM EDT [facility] Basophils Absolute 0.04 0.00 - 0.20 K/mcL LAB HEMETOLOGY METHOD 07/29/2025 5:55 PM EDT [facility] Immature Granulocytes Absolute 0.08(H) 0.00 - 0.03 K/mcL LAB HEMETOLOGY METHOD 07/29/2025 5:55 PM EDT [facility] Blood Venous blood specimen / Unknown Venipuncture / Unknown 07/29/2025 5:08 PM EDT 07/29/2025 5:46 PM EDT us Jean Claude Reynoso MD LAB BLOOD ORDERABLES Final Result [facility] [address] [place] [address], * (ABNORMAL) Troponin I high sensitivity (07/29/2025 5:08 PM EDT) [facility] High Sensitivity Troponin I 298(HH) <=54 ng/L LAB CHEMISTRY METHOD 07/29/2025 6:32 PM EDT [facility] Blood Venous blood specimen / Unknown Venipuncture / Unknown 07/29/2025 5:08 PM EDT 07/29/2025 5:46 PM EDT Narrative [facility] - 07/29/2025 6:32 PM EDT High levels of biotin in samples may falsely decrease hsTroponin values. Use caution when interpreting hsTroponin results in patients taking biotin who exhibit renal impairment (eGFR <60) or in patients taking more than 20 mg/day of biotin. Jean Claude Reynoso MD LAB BLOOD ORDERABLES Final Result Performing Organization Address City/[facility]/ZIP Co de Phone Number [facility] [address] [place] [address], * (ABNORMAL) Magnesium (07/29/2025 5:08 PM EDT) [facility] Magnesium 1.5(L) 1.9 - 2.6 mg/dL LAB CHEMISTRY METHOD 07/29/2025 6:22 PM EDT [facility] Blood Venous blood specimen / Unknown Venipuncture / Unknown 07/29/2025 5:08 PM EDT 07/29/2025 5:46 PM EDT Jean Claude Reynoso MD LAB BLOOD ORDERABLES Final Result [facility] [address] [place] [address], [place] [phone] * (ABNORMAL) Basic metabolic panel (07/29/2025 5:08 PM EDT) [facility] Sodium 133 133 - 145 mmol/L LAB CHEMISTRY METHOD 07/29/2025 6:22 PM [facility] Potassium 3.7 3.5 - 5.5 mmol/L LAB CHEMISTRY METHOD 07/29/2025 6:22 PM [facility] Chloride 98 96 - 110 mmol/L LAB CHEMISTRY METHOD 07/29/2025 6:22 PM [facility] CO2 28 21 - 32 mmol/L LAB CHEMISTRY METHOD 07/29/2025 6:22 PM [facility] Anion Gap 7 3 - 11 LAB CHEMISTRY METHOD 07/29/2025 6:22 PM [facility] Glucose 115(H) 70 - 100 mg/dL LAB CHEMISTRY METHOD 07/29/2025 6:22 PM [facility] BUN 10 5 - 25 mg/dL LAB CHEMISTRY METHOD 07/29/2025 6:22 PM [facility] Creatinine 0.58 0.50 - 1.10 mg/dL LAB CHEMISTRY METHOD 07/29/2025 6:22 PM [facility] eGFR 101 >=60 mL/min/1. 73m2 LAB CHEMISTRY METHOD 07/29/2025 6:22 PM [facility] Comment:Calculation based on the Chronic Kidney Disease Epidemiology Collaboration (CKD-EPI) equation refit without adjustment for race. BUN/Creatinine Ratio 17.2 LAB CHEMISTRY METHOD 07/29/2025 6:22 PM [facility] Calcium 9.1 8.5 - 10.5 mg/dL LAB CHEMISTRY METHOD 07/29/2025 6:22 PM [facility] Blood Venous blood specimen / Unknown Venipuncture / Unknown 07/29/2025 5:08 PM EDT 07/29/2025 5:46 PM EDT us Jean Claude Reynoso MD LAB BLOOD ORDERABLES Final Result [facility] [address] [place] [address], [place] [phone] * XR Chest 2 Views (07/29/2025 3:12 PM EDT) Anatomical Region Laterality Modality Body Radiographic Lali ging 07/29/2025 4:15 PM EDT Impressions 07/29/2025 4:16 PM EDT FINDINGS/IMPRESSION: Right perihilar mass with postsurgical changes. Lucent remaining right lung with small right pleural effusion. Increased interstitial opacities throughout the left lung. Right chest wall port. -------- FINAL REPORT -------- Dictated By: Leanna Bender Dictated Date: 07/29/2025 16:15 ET Assigned Physician: Leanna Bender Reviewed and Electronically Signed By: Leanna Bender Signed Date: 07/29/2025 16:16 ET Workstation ID: [id number] Transcribed By: Self Edit Transcribed Date: 07/29/2025 16:15 ET Narrative 07/29/2025 4:16 PM EDT XR CHEST 2 VIEWS INDICATION: chest pain TECHNIQUE: XR CHEST 2 VIEWS COMPARISON: 07/11/2025 Procedure Note Leanna Bender MD - 07/29/2025 XR CHEST 2 VIEWS INDICATION: chest pain TECHNIQUE: XR CHEST 2 VIEWS COMPARISON: 07/11/2025 IMPRESSION: FINDINGS/IMPRESSION: Right perihilar mass with postsurgical changes.Lucent remaining right lung with small right pleural effusion. Increasedinterstitial opacities throughout the left lung. Right chest wall port. -------- FINAL REPORT -------- Dictated By: Leanna Bender Dictated Date: 07/29/2025 16:15 ET Assigned Physician: Leanna Bender Reviewed and Electronically Signed By: Leanna Bender Signed Date: 07/29/2025 16:16 ET Workstation ID: [id number] Transcribed By: Self Edit Transcribed Date: 07/29/2025 16:15 ET Jean Claude Reynoso MD IMG XR PROCEDURES Final Res ult * ECG 12 lead (07/29/2025 3:02 PM EDT) Ventricular Rate ECG 89 BPM GEMUSE Atrial Rate 89 BPM GEMUSE P-R Interval 134 ms GEMUSE QRS Duration 78 ms GEMUSE Q-T Interval 372 ms GEMUSE QTc 452 ms GEMUSE P Wave Hudson 58 degrees GEMUSE R Hudson 14 degrees GEMUSE T Hudson 50 degrees GEMUSE ECG Interpretation Normal sinus rhythm Possible Left atrial enlargement Borderline ECG When compared with ECG of 16-JUL-2025 12:18, No significant change was found Confirmed by Anabell HENRIQUEZ YUFENG ([id number]) on 07/29/2025 4:47:54 PM GEMUSE 07/29/2025 3:02 PM EDT 07/29/2025 4:47 PM EDT Jean Claude Reynoso MD ECG ORDERABLES Final Resul t Performing Organization Address City/[facility]/ZIP Co de Phone Number GEMUSE * (ABNORMAL) POCT Glucose, blood (07/29/2025 2:58 PM EDT) [facility] Glucose POCT 111(H) 70 - 100 mg/dL 07/29/2025 2:59 PM EDT [facility] Blood Capillary blood specimen / Unknown 07/29/2025 2:58 PM EDT 07/29/2025 3:00 PM EDT Generic Provider Poct LAB POINT OF CARE TEST DOCKED DEVICE UNSOLICITED RESULTS Final Result Performing Organization Address [facility]/ZIP Co de Phone Number [facility] [address] [place] [address], * [id number], RSV, Influenza A and B qualitative RT-PCR (07/29/2025 2:55 PM EDT) [facility] Influenza A PCR Not Detected Not Detected LAB MICROBIOLOGY METHOD 07/29/2025 4:07 PM EDT [facility] Influenza B PCR Not Detected Not Detected LAB MICROBIOLOGY METHOD 07/29/2025 4:07 PM EDT [facility] RSV PCR Not Detected Not Detected LAB MICROBIOLOGY METHOD 07/29/2025 4:07 PM EDT [facility] SARS COV-2 Not Detected Not Detected LAB MICROBIOLOGY METHOD 07/29/2025 4:07 PM EDT [facility] Swab Both anterior nares / Unknown Non-blood Collection / Unknown 07/29/2025 2:55 PM EDT 07/29/2025 3:22 PM EDT Narrative [facility] - 07/29/2025 4:07 PM EDT Disclaimer: Testing was performed using the [employer] GeneXpert Xpress SARS-CoV-2 _Flu_RSV PLUS PCR assay. The manner in which this information is used to guide patient care is the responsibility of the healthcare provider. Results should be correlated with the clinical history, epidemiological data, and other data available to the clinician evaluating the patient. Negative results do not preclude infection. This test has been authorized by the FDA under an Emergency Use Authorization (EUA). This test is only authorized for the duration of time the declaration that circumstances exist justifying the authorization of the emergency use of in vitro diagnostic tests for detection of SARS-CoV-2 virus and/or diagnosis of COVID-19 infection under section 564 (b) (1) of the Act, 21 U.S.C 360bbb-3 (b) (1), unless the authorization is terminated or revoked sooner. Reference Range: Not Detected Fact sheet for Healthcare providers can be found at https://www.fda.gov/media/669348/download. Fact sheet for Healthcare patients can be found at https://www.fda.gov/media/496969/download. us Jean Claude Reynoso MD LAB MICROBIOLOGY - GENERAL ORDERABLES Final Result [facility]) [facility] [address] [place] [address], documented in this encounter Visit Diagnoses Diagnosis Community acquired pneumonia- Primary Pneumonia, organism unspecified Dyspnea, unspecified type Anemia, unspecified type NSTEMI (non-ST elevated myocardial infarction) (CMS/[facility] V24, [facility] V28) Acute myocardial infarction, subendocardial infarction, episode of care unspecified Atrial flutter with rapid ventricular response ([facility] V24, [facility] V28) Primary cancer of right lower lobe of lung ([facility] V24, [facility] V28) Primary malignant neoplasm of lung metastatic to other site, unspecified laterality ([facility] V24, [facility] V28) Metastatic lung cancer (metastasis from lung to other site) ([facility] V24, [facility] V28) Malignant neoplasm of bronchus and lung, unspecified site Lung nodule Other diseases of lung, not elsewhere classified documented in this encounter Admitting Diagnoses Diagnosis Community acquired pneumonia Pneumonia, organism unspecified documented in this encounter Administered Medications Inactive Administered Medications - up to 3 most recent administrations Medication Order MAR Action Action Date Dose Rate Site apixaban (ELIQUIS) tablet 5 mg 5 mg, oral, 2 times daily, First dose on Fri07/29/25 at 2202, Indication: Atrial Fibrillation Given 08/03/2025 9:22 AM EDT 5 mg Given 08/02/2025 8:28 PM EDT 5 mg Given 08/02/2025 8:49 AM EDT 5 mg atorvastatin (LIPITOR) tablet 20 mg 20 mg, oral, Nightly, First dose on Fri07/29/25 at 2202 Given 08/02/2025 8:28 PM EDT 20 mg Given 08/01/2025 9:07 PM EDT 20 mg Given 07/31/2025 9:30 PM EDT 20 mg benzonatate (TESSALON) capsule 200 mg 200 mg, oral, 3 times daily PRN, cough, Starting on Fri08/03/25 at 0123, Do not crush or chew. Given 08/03/2025 9:43 AM EDT 200 mg Given 08/03/2025 1:42 AM EDT 200 mg buPROPion XL (WELLBUTRIN XL) 24 hr tablet 300 mg 300 mg, oral, Daily, First dose on Fri07/30/25 at 0900, Do not crush, chew, or split. Given 08/03/2025 9:22 AM EDT 300 mg Given 08/02/2025 8:49 AM EDT 300 mg Given 08/01/2025 9:27 AM EDT 300 mg cefTRIAXone (ROCEPHIN) 2 g in sterile water 20 mL IV syringe 2 g, intravenous, Administer over 3 Minutes, Every 24 hours, First dose on Fri07/29/25 at 2026, For 7 days, Do not administer simultaneously with any calcium containing solutions via a Y-site in any patient., Indication: Pneumonia, Community Acquired Given 08/01/2025 9:06 PM EDT 2 g Given 07/31/2025 9:30 PM EDT 2 g Given 07/30/2025 8:13 PM EDT 2 g dextromethorphan-guaiFENesin (ROBITUSSIN-DM) 10-100 mg/5 mL syrup 10 mL 10 mL, oral, Once, On Fri08/02/25 at 0330, For 1 dose Given 08/02/2025 3:21 AM EDT 10 mL dilTIAZem (CARDIZEM) 5 mg/mL injection - ADS Override Pull Starting on Fri07/30/25 at 2017, For 1 dose, Created by cabinet override dilTIAZem (CARDIZEM) injection 5 mg 5 mg, intravenous, Once, On 07/30/25 at 2030, For 1 dose, For IV Push - administer over 2 minutes with continuous ECG and blood pressure monitoring Given 07/30/2025 8:22 PM EDT 5 mg dilTIAZem CD (CARDIZEM CD) 24 hr capsule 120 mg 120 mg, oral, Daily, First dose on 07/30/25 at 0900, Do not crush, chew, or split. Given 07/31/2025 8:35 AM EDT 120 mg Given 07/30/2025 7:09 AM EDT 120 mg dilTIAZem CD (CARDIZEM CD) 24 hr capsule 240 mg 240 mg, oral, Daily, First dose (after last modification) on Fri08/01/25 at 0900, Hold for SBP < 100 and or HR < 55 Do not crush, chew, or split. Given 08/03/2025 9:23 AM EDT 240 mg Given 08/02/2025 8:49 AM EDT 240 mg Given 08/01/2025 9:27 AM EDT 240 mg diphenhydrAMINE-zinc acetate cream Topical, 3 times daily PRN, itching, Starting on 07/31/25 at 0314 doxycycline (MONODOX) capsule 100 mg 100 mg, oral, Every 12 hours scheduled, First dose on Fri07/29/25 at 2100, For 10 days, Take with at least 8 ounces (large glass) of water, do not lie down for 30 minutes after. Administer 2 hours before or after multivitamins, antacids, or other products containing polyvalent cations (i.e., calcium, iron, magnesium, selenium, zinc)., Indication: Pneumonia, Community Acquired Given 08/02/2025 8:49 AM EDT 10 0 mg Given 08/01/2025 9:07 PM EDT 100 mg Given 08/01/2025 9:27 AM EDT 100 mg folic acid (FOLVITE) tablet 1 mg 1 mg, oral, Daily, First dose on Fri07/30/25 at 0900, For 165 days Given 08/03/2025 9:22 AM EDT 1 mg Given 08/02/2025 8:49 AM EDT 1 mg Given 08/01/2025 9:27 AM EDT 1 mg guaiFENesin (MUCINEX) 12 hr tablet 600 mg 600 mg, oral, Every 12 hours scheduled, First dose (after last modification) on Fri07/30/25 at 0200, Administer with plenty of fluids to ensure proper action. Do not crush, chew, or split. Given 08/02/2025 8:28 PM EDT 600 mg Given 08/02/2025 8:49 AM EDT 600 mg Given 08/01/2025 9:07 PM EDT 600 mg HYDROmorphone (DILAUDID) injection 0.5 mg 0.5 mg, intravenous, Every 4 hours PRN, severe pain, Starting on Fri07/30/25 at 0038 Given 08/03/2025 9:43 AM EDT 0.5 mg Given 08/03/2025 3:14 AM EDT 0.5 mg Given 08/02/2025 8:29 PM EDT 0.5 mg hydrOXYzine HCL (ATARAX) tablet 25 mg 25 mg, oral, 3 times daily PRN, anxiety, Starting on Fri07/29/25 at 2201 Given 08/03/2025 9:43 AM EDT 25 mg Given 08/02/2025 8:28 PM EDT 25 mg Given 08/02/2025 8:49 AM EDT 25 mg iopamidoL (ISOVUE-370) 370 mg iodine /mL (76 %) injection 90 mL 90 mL, intravenous, Once in imaging, Starting on Fri07/29/25 at 1842, For 1 dose Given 07/29/2025 6:44 PM EDT 90 mL ipratropium-albuteroL (DUONEB) 0.5-2.5 mg/3 mL nebulizer solution 3 mL 3 mL, nebulization, 4 times daily, First dose (after last modification) on Fri07/30/25 at 0800 Given 07/31/2025 7:20 AM EDT 3 mL ipratropium-albuteroL (DUONEB) 0.5-2.5 mg/3 mL nebulizer solution 3 mL 3 mL, nebulization, Every 4 hours PRN, wheezing, Starting on Fri07/31/25 at 1200 Given 08/02/2025 10:33 AM EDT 3 mL LORazepam (ATIVAN) tablet 0.5 mg 0.5 mg, oral, Daily PRN, anxiety, Starting on Fri07/30/25 at 1303 Given 08/01/2025 10:42 AM EDT 0.5 mg Given 07/31/2025 6:59 PM EDT 0.5 mg magnesium sulfate 2 gram/50 mL (4 %) IVPB 2 g 2 g, intravenous, at 25 mL/hr, Administer over 2 Hours, Once, On Fri07/29/25 at 1845, For 1 dose New Bag 07/29/2025 6:57 PM EDT 2 g 25 mL/hr methylphenidate (RITALIN) tablet 10 mg 10 mg, oral, 2 times daily before breakfast and lunch, First dose on 07/30/25 at 0730 Given 08/02/2025 8:49 AM EDT 10 mg Given 08/01/2025 9:27 AM EDT 10 mg Given 07/30/2025 9:31 AM EDT 10 mg methylPREDNISolone sodium succ (SOLU-Medrol) injection 40 mg 40 mg, intravenous, Every 8 hours, First dose on Fri07/31/25 at 1045, Reconstitute each 40 mg vial with 1 mL sterile water for injection to a concentration of 40 mg/mL. Given 08/01/2025 10:59 AM EDT 40 mg Given 08/01/2025 3:23 AM EDT 40 mg Given 07/31/2025 6:06 PM EDT 40 mg metoprolol tartrate (LOPRESSOR) injection 5 mg 5 mg, intravenous, Once, On Fri07/29/25 at 1805, For 1 dose, For IV Push - Administer undiluted over 2 minutes Given 07/29/2025 6:38 PM EDT 5 mg multivitamin tablet 1 tablet 1 tablet (1 each), oral, Daily, First dose on Fri08/03/25 at 0900 Given 08/03/2025 9:24 AM EDT 1 tablet ondansetron (PF) (ZOFRAN) injection 4 mg 4 mg, intravenous, Every 8 hours PRN, vomiting, nausea, Starting on Fri07/29/25 at 2201, -ONLY give IV if patient is unable to take orally. -If inadequate response within 30 minutes, proceed to next-line agent or contact provider if no further options ordered. ondansetron ODT (ZOFRAN-ODT) disintegrating tablet 4 mg 4 mg, oral, Every 8 hours PRN, vomiting, nausea, Starting on Fri07/29/25 at 2201, -Give IV if patient is unable to take orally. -If inadequate response within 30 minutes, proceed to next-line agent or contact provider if no further options ordered. For ODT tablets: -Do not remove from blister pack until just before administering. -Patient should allow tablet to dissolve on tongue. predniSONE (DELTASONE) tablet 40 mg 40 mg, oral, Daily, First dose on Fri08/02/25 at 0900, For 3 doses, Give with food or milk Given 08/03/2025 9:22 AM EDT 40 mg Given 08/02/2025 8:48 AM EDT 40 mg prochlorperazine (COMPAZINE) injection 10 mg 10 mg, intravenous, Every 6 hours PRN, nausea, vomiting, Starting on Fri07/29/25 at 2201, 2nd Line Option: -ONLY give IV if patient is unable to take orally. -Give IM if patient does not have IV Access -If inadequate response within 30 minutes, proceed to next-line agent or contact provider if no further options ordered. prochlorperazine (COMPAZINE) suppository 25 mg 25 mg, rectal, Every 12 hours PRN, nausea, vomiting, Starting on Fri07/29/25 at 2201, 2nd Line Option: -ONLY give AR if patient is unable to take orally and cannot receive IV/IM. -If inadequate response within 30 minutes, proceed to next-line agent or contact provider if no further options ordered. prochlorperazine (COMPAZINE) tablet 10 mg 10 mg, oral, Every 6 hours PRN, nausea, vomiting, Starting on Fri07/29/25 at 2201, 2nd Line Option: -Give IV or IM if patient is unable to take orally. -If inadequate response within 30 minutes, proceed to next-line agent or contact provider if no further options ordered. senna (SENOKOT) tablet 17.2 mg 17.2 mg (2 tablet), oral, Nightly PRN, constipation, Starting on Fri07/29/25 at 2201, For 14 days Given 08/02/2025 8:28 PM EDT 17.2 mg Given 08/01/2025 9:44 PM EDT 17.2 mg Given 08/01/2025 9:34 AM EDT 17.2 mg sodium chloride 0.9 % flush 10 mL 10 mL, intravenous, Once, On Fri07/29/25 at 1843, For 1 dose Given 07/29/2025 6:45 PM EDT 10 mL sodium chloride 0.9 % flush 10 mL 10 mL, intravenous, 2 times daily, First dose on Fri07/29/25 at 2202 Given 08/03/2025 9:23 AM EDT 10 mL Given 08/02/2025 8:32 PM EDT 10 mL Given 08/02/2025 8:50 AM EDT 10 mL sodium chloride 0.9 % flush 10 mL 10 mL, intravenous, As needed, line care, Starting on Fri07/29/25 at 2201 sodium chloride 0.9 % infusion 42 mL/hr, intravenous, As needed, pre-, and post- transfusion as needed for line flush purposes, in conjunction with blood product transfusion only, Starting on Fri08/01/25 at 1123, -Use only the amount required from a 250 mL bag of NS to adequately flush -A new NS bag is required with each new unit of blood administered thiamine (VITAMIN B-1) tablet 100 mg 100 mg, oral, Daily, First dose on Fri07/30/25 at 0900, For 11 days Given 08/03/2025 9:23 AM EDT 100 mg Given 08/02/2025 8:49 AM EDT 100 mg Given 08/01/2025 9:27 AM EDT 100 mg traZODone (DESYREL) tablet 100 mg 100 mg, oral, Nightly, First dose on Fri07/29/25 at 2202 Given 08/02/2025 8:29 PM EDT 100 mg Given 08/01/2025 9:13 PM EDT 100 mg Given 07/31/2025 9:30 PM EDT 100 mg documented in this encounter Discontinued Medications Medication Sig Discontinue Reason Start Date End Da te HYDROmorphone (DILAUDID) 2 mg tablet Take 1 tablet (2 mg total) by mouth every 6 (six) hours if needed for severe pain for up to 10 days. Max Daily Amount: 8 mg 07/25/2025 07/29/2025 dilTIAZem CD (CARDIZEM CD) 120 mg 24 hr capsule Take 1 capsule (120 mg total) by mouth 1 (one) time each day. 07/14/2025 08/03/2025 voriconazole (Vfend) 50 mg tabletIndications:Rafal al infection of lung Take 5 tablets (250 mg total) by mouth 2 (two) times a day. Stop Taking at Discharge 06/23/2025 08/03/2025 documented as of this encounter Active and Recently Administered Medications Times are shown in EDT. Scheduled Medication Order 08/01/2025 08/02/2025 08/03/2025 apixaban (ELIQUIS) tablet 5 mg 5 mg, oral, 2 times daily, First dose on Fri07/29/25 at 2202, Indication: Atrial Fibrillation 926 (Given - Provider: Brett Lui RN)2106 (Given - Provider: Sheila Thao RN) 0849 (Given - Provider: Lori Shine RN)2027 (Given - Provider: Radha Ni RN) 921 (Given - Provider: Brenda Abarca RN) atorvastatin (LIPITOR) tablet 20 mg 20 mg, oral, Nightly, First dose on Fri07/29/25 at 2202 2106 (Given - Provider: Sheila Thao RN) 2027 (Given - Provider: Radha Ni RN) buPROPion XL (WELLBUTRIN XL) 24 hr tablet 300 mg 300 mg, oral, Daily, First dose on Fri07/30/25 at 0900, Do not crush, chew, or split. 926 (Given - Provider: Brett Lui RN) 08 (Given - Provider: Lori Shine, QUANG) 09 (Given - Provider: Brenda Abarca, QUANG) cefTRIAXone (ROCEPHIN) 2 g in sterile water 20 mL IV syringe (CANCELED) 2 g, intravenous, Administer over 3 Minutes, Every 24 hours, First dose on Fri07/29/25 at 2026, For 7 days, Do not administer simultaneously with any calcium containing solutions via a Y-site in any patient., Indication: Pneumonia, Community Acquired 2105 (Given - Provider: Sheila Thao RN) dextromethorphan-guaiFENe sin (ROBITUSSIN-DM) 10-100 mg/5 mL syrup 10 mL (COMPLETED) 10 mL, oral, Once, On Fri08/02/25 at 0330, For 1 dose 0321 (Given - Provider: Sheila Thao RN) dilTIAZem CD (CARDIZEM CD) 24 hr capsule 240 mg 240 mg, oral, Daily, First dose (after last modification) on Fri08/01/25 at 0900, Hold for SBP < 100 and or HR < 55 Do not crush, chew, or split. 926 (Given - Provider: Brett Lui RN) 08 (Given - Provider: Lori Shine, QUANG) 09 (Given - Provider: Brenda Abarca RN) doxycycline (MONODOX) capsule 100 mg (CANCELED) 100 mg, oral, Every 12 hours scheduled, First dose on Fri07/29/25 at 2100, For 10 days, Take with at least 8 ounces (large glass) of water, do not lie down for 30 minutes after. Administer 2 hours before or after multivitamins, antacids, or other products containing polyvalent cations (i.e., calcium, iron, magnesium, selenium, zinc)., Indication: Pneumonia, Community Acquired 926 (Given - Provider: Brett Lui RN)2106 (Given - Provider: Sheila Thao RN) 08 (Given - Provider: Lori Shine RN) folic acid (FOLVITE) tablet 1 mg 1 mg, oral, Daily, First dose on 07/30/25 at 0900, For 165 days 0927 (Given - Provider: Brett Lui RN) 0849 (Given - Provider: Lori Shine, RN) 0922 (Given - Provider: Brenda Abarca, QUANG) guaiFENesin (MUCINEX) 12 hr tablet 600 mg 600 mg, oral, Every 12 hours scheduled, First dose (after last modification) on 07/30/25 at 0200, Administer with plenty of fluids to ensure proper action. Do not crush, chew, or split. 926 (Given - Provider: Brett Lui RN)2106 (Given - Provider: Sheila Thao RN) 0849 (Given - Provider: Lori Shine RN)202 (Given - Provider: Radha Ni RN) 0923 (Not Given - Provider: Brenda Abarca RN - Reason: Patient/Resident/Age nt refused - education provided ) methylphenidate (RITALIN) tablet 10 mg 10 mg, oral, 2 times daily before breakfast and lunch, First dose on 07/30/25 at 0730 0927 (Given - Provider: Brett Lui RN)1100 (Not Given - Provider: Brett Lui RN - Reason: Patient/Resident/Age nt refused - education provided ) 0849 (Given - Provider: Lori Shine RN)1140 (Not Given - Provider: Lori Shine RN - Reason: Patient/Resident/Age nt refused - education provided ) 0922 (Not Given - Provider: Brenda Abarca RN - Reason: Patient/Resident/Age nt refused - education provided )1213 (Not Given - Provider: Brenda Abarca RN - Reason: Patient/Resident/Age nt refused - education provided ) methylPREDNISolone sodium succ (SOLU-Medrol) injection 40 mg (CANCELED) 40 mg, intravenous, Every 8 hours, First dose on 07/31/25 at 1045, Reconstitute each 40 mg vial with 1 mL sterile water for injection to a concentration of 40 mg/mL. 0323 (Given - Provider: Tracy Wallace RN)1059 (Given - Provider: Brett Lui RN) multivitamin tablet 1 tablet 1 tablet (1 each), oral, Daily, First dose on Fri08/03/25 at 0900 0924 (Given - Provider: Brenda Abarca RN) predniSONE (DELTASONE) tablet 40 mg 40 mg, oral, Daily, First dose on Fri08/02/25 at 0900, For 3 doses, Give with food or milk 0848 (Given - Provider: Lori Shine RN) 0922 (Given - Provider: Brenda Abarca RN) sodium chloride 0.9 % flush 10 mL(Linked Group 1) 10 mL, intravenous, 2 times daily, First dose on Fri07/29/25 at 2202 0927 (Given - Provider: Brett Lui RN)2108 (Given - Provider: Sheila Thao RN) 0850 (Given - Provider: Lori Shine RN)2031 (Given - Provider: Radha Ni RN) 09 (Given - Provider: Brenda Abarca RN) thiamine (VITAMIN B-1) tablet 100 mg 100 mg, oral, Daily, First dose on Fri07/30/25 at 0900, For 11 days 0927 (Given - Provider: Brett Lui RN) 0849 (Given - Provider: Lori Shine RN) 09 (Given - Provider: Brenda Abarca RN) traZODone (DESYREL) tablet 100 mg 100 mg, oral, Nightly, First dose on Fri07/29/25 at 2202 2113 (Given - Provider: Sheila Thao RN) 2028 (Given - Provider: Radha Ni RN) PRN Medication Order 08/01/2025 08/02/2025 08/03/2025 acetaminophen (TYLENOL) tablet 650 mg 650 mg, oral, Every 4 hours PRN, mild pain, headaches, fever - temperature GREATER than 38 C (100.4 F), Starting on Fri07/29/25 at 2201 benzonatate (TESSALON) capsule 200 mg 200 mg, oral, 3 times daily PRN, cough, Starting on Fri08/03/25 at 0123, Do not crush or chew. 0142 (Given - Provider: Radha Ni RN)0943 (Given - Provider: Brenda Abarca, QUANG) diphenhydrAMINE-zinc acetate cream Topical, 3 times daily PRN, itching, Starting on 07/31/25 at 0314 HYDROmorphone (DILAUDID) injection 0.5 mg 0.5 mg, intravenous, Every 4 hours PRN, severe pain, Starting on 07/30/25 at 0038 2107 (Given - Provider: Sheila Thao RN) 0525 (Given - Provider: Sheila Thao RN)2028 (Given - Provider: Radha Ni RN) 031 (Given - Provider: Radha Ni RN)0943 (Given - Provider: Brenda Abarca, QUANG) hydrOXYzine HCL (ATARAX) tablet 25 mg 25 mg, oral, 3 times daily PRN, anxiety, Starting on Fri07/29/25 at 2201 0324 (Not Given - Provider: Tracy Wallace RN - Reason: Patient/Resident/Age nt refused - education provided )0930 (Given - Provider: Brett Lui RN)2106 (Given - Provider: Sheila Thao RN) 0849 (Given - Provider: Lori Shine RN)2027 (Given - Provider: Radha Ni, QUANG) 0943 (Given - Provider: Brenda Abarca, QUANG) ipratropium-albuteroL (DUONEB) 0.5-2.5 mg/3 mL nebulizer solution 3 mL 3 mL, nebulization, Every 4 hours PRN, wheezing, Starting on 07/31/25 at 1200 1033 (Given - Provider: Fernanda Herring, MIMI) LORazepam (ATIVAN) tablet 0.5 mg 0.5 mg, oral, Daily PRN, anxiety, Starting on 07/30/25 at 1303 1042 (Given - Provider: Brett Lui RN) ondansetron (PF) (ZOFRAN) injection 4 mg(Linked Group 2) 4 mg, intravenous, Every 8 hours PRN, vomiting, nausea, Starting on Fri07/29/25 at 2201, -ONLY give IV if patient is unable to take orally. -If inadequate response within 30 minutes, proceed to next-line agent or contact provider if no further options ordered. ondansetron ODT (ZOFRAN-ODT) disintegrating tablet 4 mg(Linked Group 2) 4 mg, oral, Every 8 hours PRN, vomiting, nausea, Starting on Fri07/29/25 at 2201, -Give IV if patient is unable to take orally. -If inadequate response within 30 minutes, proceed to next-line agent or contact provider if no further options ordered. For ODT tablets: -Do not remove from blister pack until just before administering. -Patient should allow tablet to dissolve on tongue. prochlorperazine (COMPAZINE) injection 10 mg(Linked Group 3) 10 mg, intravenous, Every 6 hours PRN, nausea, vomiting, Starting on Fri07/29/25 at 2201, 2nd Line Option: -ONLY give IV if patient is unable to take orally. -Give IM if patient does not have IV Access -If inadequate response within 30 minutes, proceed to next-line agent or contact provider if no further options ordered. prochlorperazine (COMPAZINE) suppository 25 mg(Linked Group 3) 25 mg, rectal, Every 12 hours PRN, nausea, vomiting, Starting on Fri07/29/25 at 2201, 2nd Line Option: -ONLY give AR if patient is unable to take orally and cannot receive IV/IM. -If inadequate response within 30 minutes, proceed to next-line agent or contact provider if no further options ordered. prochlorperazine (COMPAZINE) tablet 10 mg(Linked Group 3) 10 mg, oral, Every 6 hours PRN, nausea, vomiting, Starting on Fri07/29/25 at 2201, 2nd Line Option: -Give IV or IM if patient is unable to take orally. -If inadequate response within 30 minutes, proceed to next-line agent or contact provider if no further options ordered. senna (SENOKOT) tablet 17.2 mg 17.2 mg (2 tablet), oral, Nightly PRN, constipation, Starting on Fri07/29/25 at 2201, For 14 days 0934 (Given - Provider: Brett Lui RN)2143 (Given - Provider: Sheila Thao RN) 2027 (Given - Provider: Radha Ni RN) sodium chloride 0.9 % flush 10 mL(Linked Group 1) 10 mL, intravenous, As needed, line care, Starting on Fri07/29/25 at 2201 sodium chloride 0.9 % infusion 42 mL/hr, intravenous, As needed, pre-, and post- transfusion as needed for line flush purposes, in conjunction with blood product transfusion only, Starting on Fri08/01/25 at 1123, -Use only the amount required from a 250 mL bag of NS to adequately flush -A new NS bag is required with each new unit of blood administered Linked Groups Order Group 1: Insert peripheral IV (CANCELED) STAT, Once, On Fri07/29/25 at 220, For 1 occurrence And Maintain IV access (CANCELED) Until discontinued, Starting on Fri07/29/25 at 220, Until Specified And Saline lock IV (CANCELED) Routine, Once, On Fri07/29/25 at 2201, For 1 occurrence And sodium chloride 0.9 % flush 10 mLJump to med 10 mL, intravenous, 2 times daily, First dose on Fri07/29/25 at 2201 And sodium chloride 0.9 % flush 10 mLJump to med 10 mL, intravenous, As needed, line care, Starting on Fri07/29/25 at 2201 Group 2: ondansetron ODT (ZOFRAN-ODT) disintegrating tablet 4 mgJump to med 4 mg, oral, Every 8 hours PRN, vomiting, nausea, Starting on Fri07/29/25 at 2200, -Give IV if patient is unable to take orally. -If inadequate response within 30 minutes, proceed to next-line agent or contact provider if no further options ordered. For ODT tablets: -Do not remove from blister pack until just before administering. -Patient should allow tablet to dissolve on tongue. Or ondansetron (PF) (ZOFRAN) injection 4 mgJump to med 4 mg, intravenous, Every 8 hours PRN, vomiting, nausea, Starting on Fri07/29/25 at 220, -ONLY give IV if patient is unable to take orally. -If inadequate response within 30 minutes, proceed to next-line agent or contact provider if no further options ordered. Group 3: prochlorperazine (COMPAZINE) tablet 10 mgJump to med 10 mg, oral, Every 6 hours PRN, nausea, vomiting, Starting on Fri07/29/25 at 220, 2nd Line Option: -Give IV or IM if patient is unable to take orally. -If inadequate response within 30 minutes, proceed to next-line agent or contact provider if no further options ordered. Or prochlorperazine (COMPAZINE) injection 10 mgJump to med 10 mg, intravenous, Every 6 hours PRN, nausea, vomiting, Starting on Fri07/29/25 at 2201, 2nd Line Option: -ONLY give IV if patient is unable to take orally. -Give IM if patient does not have IV Access -If inadequate response within 30 minutes, proceed to next-line agent or contact provider if no further options ordered. Or prochlorperazine (COMPAZINE) suppository 25 mgJump to med 25 mg, rectal, Every 12 hours PRN, nausea, vomiting, Starting on Fri07/29/25 at 2201, 2nd Line Option: -ONLY give AR if patient is unable to take orally and cannot receive IV/IM. -If inadequate response within 30 minutes, proceed to next-line agent or contact provider if no further options ordered. documented in this encounter Orders Medications Ordered That Jacob ht Not Have Been Administered Count Last Ordered Date First Ordered Date sodium chloride 0.9 % infusion 1 08/01/2025 diphenhydrAMINE-zinc acetate cream 1 2024 acetaminophen (TYLENOL) tablet 650 mg guaiFENesin (MUCINEX) 12 hr tablet 600 mg 07/29/2025 ipratropium-albuteroL (DUONE B) 0.5-2.5 mg/3 mL nebulizer solution 3 mL 1 07/29/2025 ondansetron (PF) (ZOFRAN) injection 4 mg 07/29/2025 ondansetron ODT (ZOFRAN-ODT) disintegrating tablet 4 mg 07/29/2025 oxyCODONE (ROXICODONE) immed iate release tablet 5 mg 07/29/2025 prochlorperazine (COMPAZINE) injection 10 mg 07/29/2025 prochlorperazine (COMPAZINE) suppository 25 mg 07/29/2025 prochlorperazine (COMPAZINE) tablet 10 mg 1 07/29/2025 sodium chloride 0.9 % flush 10 mL 1 025 Lab Orders Without Results Count Last Ordered D ate First Ordered Date POCT GLUCOSE, BLOOD 1 07/29/2025 EKG Orders Without Results Count Last Ordered D ate First Ordered Date ECG 12-LEAD 1 07/30/2025 Consult Count Last Ordered Date First Orde red Date IP CONSULT TO INFECTIOUS DISEASES 1 025 IP CONSULT TO ONCOLOGY 1 07/31/2025 IP CONSULT TO NUTRITION SERVICES 1 07/30/20 25 Admission Count Last Ordered Date First Orde red Date ADMIT TO INPATIENT 1 07/29/2025 Transfer Count Last Ordered Date First Orde red Date TRANSFER PATIENT TO NEW UNIT 1 08/02/2025 Discharge Count Last Ordered Date First Orde red Date DISCHARGE PATIENT 1 08/03/2025 CORE MEASURES Count Last Ordered Date First Ord ered Date REASON FOR NO VTE PROPHYLAXI S - HOSPITAL ADMISSION - MEDICATIONS 1 07/29/2025 documented in this encounter Care Teams Stitcher Around Relationship Specialty Start Date End Date Awa Reyes NP [facility] [address] [place] [id number] PCP - General Nurse Practitioner 05/20/25 documented as of this encounter
--- NOTE | 2025-08-05 08:33 | ...WebTmpl.AM.BPCHK ---
Intake Intake Visit Reasons: follow up Allergies clarithromycin (Clarithromycin) Allergy (Intermediate, Unverified 08/17/20 16:48) HIVES Penicillins Allergy (Intermediate, Unverified 08/17/20 16:48) HIVES Coding
--- NOTE | 2025-08-05 08:39 | MHC.OFFVIS ---
Vital Signs 08/05/25 08:41 Height 5 ft 3 in Weight 130 lb BMI 23.0 BP 118/76 Blood Pressure Location Rt femoral Position Sitting Intake Visit Reasons: follow up Assistive Technology Trainer Required: No Accompanied by: Friend Allergies clarithromycin (Clarithromycin) Allergy (Intermediate, Unverified 08/05/25 08:46) HIVES Penicillins Allergy (Intermediate, Unverified 08/05/25 08:46) HIVES Medication List - Last Reconciled 08/05/25 by Rosangela Eastman, ZENOBIA hydroxyzine HCl 25 mg PO TID PRN imipramine HCl 25 mg PO TID methylphenidate HCl (Ritalin) 10 mg PO BID 30 days trazodone 100 mg PO BEDTIME Coding
--- NOTE | 2025-08-05 08:40 | MHC.OFFVIS ---
Vital Signs 08/05/25 08:41 Height 5 ft 3 in Weight 130 lb BMI 23.0 BP 118/76 Blood Pressure Location Rt femoral Position Sitting Intake Visit Reasons: follow up Accompanied by: Daughter Allergies clarithromycin (Clarithromycin) Allergy (Intermediate, Unverified 08/05/25 08:46) HIVES Penicillins Allergy (Intermediate, Unverified 08/05/25 08:46) HIVES Medication List - Last Reconciled 08/05/25 by Rosangela Eastman, ZENOBIA hydroxyzine HCl 25 mg PO TID PRN imipramine HCl 25 mg PO TID methylphenidate HCl (Ritalin) 10 mg PO BID 30 days trazodone 100 mg PO BEDTIME HPI Comments Details: Narcolepsy has been okay, controlled with current medications. Sleep was okay with Trazodone. Following with [facility]. 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 Walking with cane, no falls. Still working, but is out on leave. 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 In the past, her depression significantly worsened after dose of imipramine increased, doing well with 25mg three times a day. Her mother passed in 03/2023 from glioblastoma. She worked with grief counselor previously, not seeing psychiatrist or therapist at this time. She used to get excessive daytime sleepiness, cataplectic attacks of generalized weakness under emotional states, and vivid dreams. She was first diagnosed with narcolepsy over 13 years ago. A sleep study confirmed the diagnosis in the past. She had seen her previous neurologist who had put her on Provigil which did not help, but she responded remarkably to the Ritalin and Tofranil combination. Review of Systems Const Denies chills, Reports daytime sleepiness, Denies difficulty sleeping, Denies fatigue, Denies fever(s), Denies frequent falls, Denies headache(s), Denies increased appetite, Denies poor appetite, Denies snoring, Denies weakness, Denies weight gain and Denies weight loss Eyes Denies loss of vision ENT Denies vertigo, Denies dizziness, Denies headache(s) and Denies neck pain Card Denies chest pain at rest, Denies chest pain with activity, Denies syncope, Denies leg edema, Denies palpitations, Denies dyspnea and Reports dyspnea on exertion Resp Reports cough, Denies dyspnea, Reports dyspnea on exertion and Denies snoring GI Denies abdominal pain, Denies constipation, Denies heartburn, Denies diarrhea and Denies nausea Denies urinary frequency, Denies urinary incontinence and Denies urinary urgency Musc Denies abnormal gait, Denies back pain, Denies myalgias, Denies arthralgias, Denies neck pain, Denies numbness and Denies tingling Neuro Denies abnormal gait, Denies vertigo, Denies dizziness, Denies syncope, Denies frequent falls, Denies headache(s), Denies lack of coordination, Denies loss of vision, Denies memory loss, Denies numbness, Denies Other visual disturbances, Denies restless legs, Denies seizure-like activity, Denies tingling, Denies paresthesias, Denies tremor(s) and Denies weakness Psych Denies anxiety, Reports depression, Denies auditory hallucinations, Denies memory loss and Denies visual hallucinations Endo Denies fatigue and Denies palpitations Assessment & Plan Assessment & Plan (1) Narcolepsy: Code(s): G47.419 - Narcolepsy without cataplexy Category: Medical Qualifiers: Narcolepsy type: primary with cataplexy Qualified Code(s): G47.411 - Narcolepsy with cataplexy Plan: Continue Ritalin 10mg 1 tablet twice a day. Continue Imipramine 25mg 1 tablet three times a day. Continue trazodone 100mg 1 tablet at bedtime as needed for sleep. (2) Depression: Code(s): F32.A - Depression, unspecified Category: Medical Qualifiers: Depression Type: unspecified Qualified Code(s): F32.A - Depression, unspecified Plan . Coding Level of Care Code Est Pt Level 4 (31074) Diagnoses Primary narcolepsy with cataplexy G47.411 Narcolepsy type: primary with cataplexy Depression, unspecified depression type F32.A Depression Type: unspecified
[2025-08-05 08:41] VITALS: BP 118/76; BMI 23.0
--- OUTSIDE RECORDS SUMMARY | 2025-08-05 08:57 | XMS_ITS | Patient Health Record ---
Author Organization [facility] Address [address] [place] [address] Care Team Providers Care Air Valve Repairer Name Role Phone Arden (RETIRED) Jamshid GIORDANO Primary Care Provide Bear King Unavailable [phone] Allergies Allergen (clinical drug ingredient) Drug/Non Drug Allergy documented on EMR Reaction Allergy Type Onset Date Status Sulfa Unknown Drug Allergy Active aspirin Aspirin Unknown Drug Allergy Active amoxicillin Amoxicillin Unknown Drug Allergy Act maura Reason For Referral No Information Medications Medication SIG (Take, Route, Fr equency, Duration) Notes Start Date End Date Status MoviPrep 100 GM as directed Orally a s directed for 1 dose 03/30/2013 Active Methylphenidate 10mg Active Imipramine HCl 25mg 12/01/2024 1 Active Problems Problem Type SNOMED Code ICD Code Onset Dates Problem Status W/U Status Risk Notes Problem 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 (211.9) Active confirmed Problem Colon cancer screening (961303199) Colon cancer screening (V76.51) Active confirmed Plan Of Treatment Future Test Test Name Order Date UPPER GI ENDOSCOPY 03/30/2013 COLONOSCOPY 03/30/2013 Insurance Providers Payer Name Payer Address Payer Phone Subscriber Number Group Number Insured Name Patient Relationship to Insured Coverage Start Date Coverage End Date [facility] [address] [place] [phone] [id number] REJI MARTIN Self - patient is the insured Medical (General) History Medical History History ICD Code egd 10/2009 and 02-14-2010-[place] LT lymphoma-previous H.pylori treated and eradicated-lymphoma treated with XRT by Dr. Gibbons and Dr. Garrido-completed in 03/2010. Denies RI,DM,CVA,Lung disease,renal dise ase Narcolepsy
--- OUTSIDE RECORDS SUMMARY | 2025-08-05 08:57 | XMS_ITS | Encounter Summary ---
Author Organization [facility] Address [address] [place] [address] Care Team Providers Care Debeader Name Role Phone Xiomara Romero MD Primary Care Provide Encounter Details Date Type Department Care Team Description 07/20/2024 Nurse Only [facility] Oncology Services [address] [place] [address] Paige Boles, RN Social History Tobacco Use Types Packs/Day Years Used Date Smoking Tobacco: Former Cigarettes Q uit: 2018 Smokeless Tobacco: Never Alcohol Use Standard Drinks/Week Comments Yes 0 (1 standard drink = 0.6 oz pur e alcohol) ocassionally/vodka Sex and Gender Information Value Date Recorded Sex Assigned at Female 07/18/2023 10:56 AM EDT Gender Identity Female 12/12/2023 12:47 PM EST Sexual Orientation Straight 12/12/2023 12 :47 PM EST Job Start Date Occupation Industry Not on file Not on file Not on file documented as of this encounter Functional Status Functional Status Response Date of Assess ment Pt deaf or have serious difficulty hearing? No 07/08/2024 Pt blind or have difficulty seeing, even with gl asses? No 07/08/2024 documented as of this encounter Progress Notes * Paige Boles, RN - 07/20/2024 9:55 AM EDT Referral for Expert Consult - ?? Initiated referral to [facility] for new patient consultation appointment. ?? Request submitted online: [email or web address] ?? Records faxed ?? Image sharing requested through Radiology Dept. ?? Pathology slides are requested directly by [facility]. ?? DF [facility] computer operations manager will call the patient directly to book the appt. The Patient may call the [facility] New Patient Coordinator directly at . [facility] [place] ([facility]) [address] [facility] [place] [address] Date Visit Type Department Provider 08/16/2024 4:00 PM CONSULT DF THORACIC ONC Arrive at: CHECK-IN AT: [facility], Floor 9 Robert Gerardo MD Appointment Notes: NSCLC unsure of staging [facility] Medical Pt. aware to hand-carry, also to be requested by [facility] Second opinion documented in this encounter Plan of Treatment Not on file documented as of this encounter Visit Diagnoses Not on filedocumented in this encounter Care Teams Debeader Relationship Specialty Start Date End Date Xiomara Romero MD [address] [place] [address] PCP - General Internal Medicine 08/15/23 documented as of this encounter
--- OUTSIDE RECORDS SUMMARY | 2025-08-05 08:57 | XMS_ITS | Clinical Summary ---
Author Organization [facility] Address [address] [place] [address] Care Team Providers Care Radio Television Announcer Name Role Phone Xiomara Romero MD Primary Care Provide r Allergies Active Allergy Reactions Criticality Noted Date Comments Aspirin 11/04/2018 Sulfa Antibiotics Rash Low 11/04/2018 Sulfate 11/04/2018 Medications Medication Sig Dispensed Refills Start Date End Date Status betamethasone, augmented, (DIPROLENE AF) 0.05 % cream Apply topically 2 (two) times a day. 0 Active methylphenidate (RITALIN) 10 MG tablet Take 1 tablet (10 mg total) by mouth 3 (three) times a day. 0 Active imipramine (TOFRANIL) 25 MG tablet Take 1 tablet (25 mg total) by mouth 3 (three) times a day. 0 Active hydrOXYzine (ATARAX) 25 MG tablet Take 1 tablet (25 mg total) by mouth every 8 (eight) hours as needed for anxiety. 0 08/07/2023 Active rosuvastatin (CRESTOR) tablet 5 mg Take 1 tablet (5 mg total) by mouth daily. 0 08/08/2023 Active traZODone (DESYREL) 100 MG tablet Take 1 tablet (100 mg total) by mouth every night at bedtime. 0 Active lidocaine-prilocaine (EMLA) cream Apply topically as needed. 1 Hour prior to mediport access 30 g 3 12/06/2023 Active clobetasol (TEMOVATE) 0.05 % cream Apply topically 2 (two) times a day. 60 g 2 03/26/2024 Active Multiple Vitamin (MULTIVITAMIN ADULT PO) Take 1 tablet by mouth daily. 0 Active Flaxseed, Linseed, (FLAX SEED OIL PO) Take 1 tablet by mouth daily. 0 Active buPROPion (WELLBUTRIN XL) 150 MG 24 hr tablet Take 2 tablets (300 mg total) by mouth daily. 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 Lung nodule 11/04/2018 Social History Tobacco Use Types Packs/Day Years [...] file Not on file Not on file Last Filed Vital Signs Vital Sign Reading Time Taken Comments Blood Pressure 126/69 07/16/2024 11:04 AM EDT Pulse 90 07/16/2024 11:04 AM EDT Temperature 36.1 C (97 F) 07/16/2024 11:04 AM EDT Respiratory Rate 16 07/08/2024 2:44 PM EDT Oxygen Saturation 96% 07/16/2024 11:04 AM EDT Inhaled Oxygen Concentration - - Weight 64 kg (141 lb) 07/16/2024 11:04 AM EDT Height 157.5 cm (5' 2 ) 07/16/2024 11:04 AM EDT Body Mass Index 25.79 07/16/2024 11:04 AM EDT Plan of Treatment Health Maintenance Due Date Last Done Comments Hepatitis C Screening 1961 Depression Screening 1973 BMI Counseling 1979 Preventative Health Evaluation 1979 Shingrix-Zoster Vaccine (1 of 2) 1980 Cervical Cancer Screening (Pap Smear) 1982 Colon Cancer Screening (Colonoscopy) 2006 Breast Cancer Screening (Mammogram) 2011 Pneumococcal Vaccine (2 of 2 - PCV) 09/18/2019 09/18/2018 Pneumococcal Vaccine (2 of 2 - PCV) 09/18/2019 09/18/2018 COVID-19 Vaccine (2 - Moderna risk series) 10/02/2023 09/04/2023 Influenza Vaccine (#1) 2025 3, 09/05/2022, 01/28/2020, Additional history exists DTap / Tdap / Td (2 - Td or Tdap) 12/07/2028 12/07/2018 RSV Adult > 60+ Yrs or (1 - 1-dose 75+ series) 2036 Hepatitis B Vaccines Aged Out No long er eligible based on patient's age to complete this topic RSV Ped < 20 months Aged Out No longe r eligible based on patient's age to complete this topic Advance Directives For more information, please contact: [phone] Latest Code Status on File Code Status Date Activated Date Inactivated Comments Full Code 07/08/2024 1:42 PM 07/08/2024 11:23 PM This c ode status was ascertained in the following way: discussion with patient . Care Teams Radio Television Announcer Relationship Specialty Start Date End Date Xiomara Romero MD [address] [place] [address] PCP - General Internal Medicine 08/15/23
--- OUTSIDE RECORDS SUMMARY | 2025-08-05 08:57 | XMS_ITS ---
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 Past Plans ONCOLOGY TREATMENT Plan Name Start Date Discontinue Date Treatment Medications Discontinue Reason Plan Provider Cycles [facility] OP ATEZOLIZUMAB 024 08/13/2024 albuterol (PROVENTIL)atezolizumab (TECENTRIQ) infusiondiphenhydrAMINE (BENADRYL)EPINEPHrinefa motidine (PF) (PEPCID)hydrocortisone (SOLU-CORTEF) IVmeperidine (DEMEROL) 25 MG/MLSaline Flush 0.9 %sodium chloride (NS) 0.9 %sodium chloride 0.9% bolus (NS) Progression Norman Conde MD 10 of 17 cycles started Radiation Treatments * No radiation treatments are documented for this patient in [facility]. Treatments may have been administered in another system.
--- OUTSIDE RECORDS SUMMARY | 2025-08-05 08:58 | XMS_ITS | Clinical Summary ---
Author Organization [facility] Address [address] [place] [address] Phone Care Team Providers Care Funeral Director'S Assistant Name Role Phone Awa Reyes NP Primary Care Provider [phone] Allergies Active Allergy Reactions Criticality Noted Date Comments Aspirin GI intolerance Medium 10/04/2024 Oxycodone Rash 07/29/2025 Sulfa (Sulfonamide Antibiotics) Hives Medium 08/31 Medications hydrOXYzine HCL (ATARAX) 25 mg tablet Take 1 tablet (25 mg total) by mouth 3 (three) times a day if needed. Active rosuvastatin (CRESTOR) 5 mg tablet Take 1 tablet (5 mg total) by mouth 1 (one) time each day. Active trazodone HCl (TRAZODONE ORAL) Take 100 mg by mouth 1 (one) time each day in the evening. Active methylphenidate (RITALIN) 10 mg tablet Take 10 mg by mouth 2 times daily. Active folic acid (FOLVITE) 1 mg tablet Take 1 tablet (1 mg total) by mouth 1 (one) time each day. 30 tablet 2 025 2025 Active buPROPion XL (WELLBUTRIN XL) 150 mg 24 hr tablet Take 2 tablets (300 mg total) by mouth 1 (one) time each day. Do not crush, chew, or split. Active thiamine (VITAMIN B-1) 100 mg tablet Take 1 tablet (100 mg total) by mouth 1 (one) time each day. 30 tablet 025 2024 Active multivitamin tablet Take 1 tablet by mouth 1 (one) time each day. 30 each 025 2024 Active apixaban (ELIQUIS) 5 mg tablet Take 1 tablet (5 mg total) by mouth 2 (two) times a day. 60 each 025 2024 Active senna (SENOKOT) 8.6 mg tablet Take 2 tablets (17.2 mg total) by mouth 2 (two) times a day. 120 each 025 2024 Active ipratropium-alb uteroL (DUONEB) 0.5-2.5 mg/3 mL nebulizer solutionIndicat ions:Shortness of breath,Mixed simple and mucopurulent chronic bronchitis (CMS/HCC V24, CMS/HCC V28) Take 3 mL by nebulization every 8 (eight) hours. 270 mL 2025 Active sodium chloride 0.9 % nebulizer solutionIndicat ions:Shortness of breath,Mixed simple and mucopurulent chronic bronchitis (CMS/HCC V24, CMS/HCC V28) Take 3 mL by nebulization every 8 (eight) hours. 90 mL 12 2025 Active dilTIAZem CD (CARDIZEM CD) 120 mg 24 hr capsule Take 2 capsules (240 mg total) by mouth 1 (one) time each day. 60 each 025 2024 Active benzonatate (TESSALON) 200 mg capsule Take 1 capsule (200 mg total) by mouth 3 (three) times a day if needed for cough for up to 7 days. Do not crush or chew. 20 capsule 2024 Active albuterol HFA (ProAir HFA) 90 mcg/actuation inhaler Inhale 2 puffs by mouth every 4 (four) hours if needed for wheezing or shortness of breath. 8.5 g 11 2025 Active betamethasone, augmented, (DIPROLENE-AF) 0.05 % cream APPLY SPARINGLY TO AFFECTED AREA TWICE DAILY NEEDED FOR PSORIASIS 021 2024 Discontinued imipramine (TOFRANIL) 25 mg tablet Take 1 tablet (25 mg total) by mouth 3 (three) times a day. 2024 Discontinued ipratropium-alb uteroL (Combivent Respimat) 20-100 mcg/actuation inhalerIndicati ons:Primary cancer of right upper lobe of lung (CMS/HCC V24, CMS/HCC V28),Primary cancer of right lower lobe of lung (CMS/HCC V24, CMS/HCC V28),Shortness of breath Inhale 1 puff by mouth 4 (four) times a day. 3 g 4 025 2024 Discontinued(A lternate therapy) oxyCODONE (ROXICODONE) 5 mg immediate release tablet Take 1 tablet (5 mg total) by mouth every 4 (four) hours if needed for moderate pain or severe pain. Max Daily Amount: 30 mg 90 tablet 025 2024 Discontinued(R eorder) voriconazole (Vfend) 50 mg tabletIndicatio ns:Fungal infection of lung Take 5 tablets (250 mg total) by mouth 2 (two) times a day. 420 tablet 025 2024 Discontinued(S top Taking at Discharge) dilTIAZem CD (CARDIZEM CD) 120 mg 24 hr capsule Take 1 capsule (120 mg total) by mouth 1 (one) time each day. 30 each 025 2024 Discontinued diazePAM (VALIUM) 2 mg tablet Take 1 tablet (2 mg total) by mouth 3 (three) times a day if needed (dizziness) for up to 5 days. Max Daily Amount: 6 mg 15 each 025 2024 ipratropium-alb uteroL (DUONEB) 0.5-2.5 mg/3 mL nebulizer solution Take 3 mL by nebulization every 6 (six) hours. 360 mL 11 2024 Discontinued sodium chloride 0.9 % nebulizer solution Take 3 mL by nebulization if needed for wheezing. 90 mL 12 025 2024 Discontinued ipratropium-alb uteroL (DUONEB) 0.5-2.5 mg/3 mL nebulizer solution Take 3 mL by nebulization every 8 (eight) hours. 270 mL 2024 Discontinued sodium chloride 0.9 % nebulizer solution Take 3 mL by nebulization every 8 (eight) hours. 90 mL 2024 Discontinued sodium chloride 0.9 % nebulizer solution Take 3 mL by nebulization every 8 (eight) hours. 90 mL 025 2024 Discontinued oxyCODONE (ROXICODONE) 5 mg immediate release tablet Take 1 tablet (5 mg total) by mouth every 4 (four) hours if needed for moderate pain or severe pain. Max Daily Amount: 30 mg 90 tablet 025 2024 Discontinued HYDROmorphone (DILAUDID) 2 mg tablet Take 1 tablet (2 mg total) by mouth every 6 (six) hours if needed for severe pain for up to 10 days. Max Daily Amount: 8 mg 30 tablet 025 2024 Discontinued Active Problems Problem Noted Date Diagnosed Date Community acquired pneumonia 07/29/2025 Atrial flutter with rapid ve ntricular response (CMS/HCC V24, CMS/HCC V28) 07/11/2025 Lung mass 05/17/2025 Hypomagnesemia 03/04/2025 Pleural effusion, right 01/20/2025 B12 deficiency 01/10/2025 Postprocedural pulmonary air leak 10/31/2024 Postprocedural pulmonary air leak 10/11/2024 Assessment & Plan (10/31/2024 1:31 PM EST): Reji frazier is a 64-year-old female who had a right lower lobe superior segmentectomy and right upper lobe posterior segmentectomy in October 2023 for 2 separate stage I adenocarcinomas. More recently on 10/04/2024 underwent a robotic right lower lobectomy for a stage IIb (pT2b, pN1) invasive solid adenocarcinoma. During her last visit her right sided chest tube was removed after a 4-hour clamping trial and presents today for wound check and chest x-ray post chest tube pull. Presents today for a wound check after having her chest tube removed as well as a chest x-ray to ensure stability. While in office we did review her most recent chest x-ray which was obtained just prior to her visit today. It does show elevation of the right hemidiaphragm with a small right-sided pleural effusion which is deemed to be surgical sequelae from her many previous surgeries to her lungs. She remains asymptomatic and denies any new or worsening shortness of breath, fever, chills and overall is doing quite well. She was reminded that she will have a chest CT scan with this office in 6 months time for chest CT surveillance of her multiple right lung cancers. She was also educated that we will contact her medical oncologist for follow-up of any further adjuvant treatments she may require. Assessment & Plan (10/16/2024 9:19 PM EST): First visit of the day she had an improved, but ongoing small air leak. 4-hour clamping trial done with repeat CXR. During clamping trial patient had no increasing SOB or SQ air. Her followup CXR showed no increased pneumothorax. Right chest tube removed in office without difficulty and an occlusive dressing placed over the site. Patient tolerated this well. Patient educated to keep this dressing in place x 48 hours, then it should be removed. May be left open to air if no drainage at that time. No showering until the dressing has been removed. Will keep follow up visit with Cortes Messina PA-C next week for a wound check. Assessment & Plan (10/11/2024 4:46 PM EST): Ms. Partner is a 64 y/o female with history of a posterior segmentectomy and superior segmentectomy for separate lung cancers about a year and a half ago who ended up developing a third lung cancer in the right lower lobe with significant mediastinal lymphadenopathy. Biopsy showed lung cancer but the biopsies of the mediastinal nodes were negative even though they were PET avid. S/P Robotic RLL on October 04, 2024. Chest tube with air leak. Will remain in place. New mini-Atrium provided. Monitor drainage Start Keflex 500 mg BID while chest tube in place. Return to office on Friday10/15/24 for another chest tube check with an Xray first. Incisional pain: Tylenol & Oxycodone as needed, lidocaine patch, warm compresses (careful not to burn herself). She is instructed to call the office with any questions or concerns. Weight loss 01/02/2024 Primary cancer of right uppe r lobe of lung (CMS/HCC V24, CMS/HCC V28) 12/12/2023 Primary cancer of right lowe r lobe of lung (CMS/HCC V24, CMS/HCC V28) 09/18/2023 Cancer Staging:Pathologic stage from 10/04/2024:Stage IIB(pT2b, pN1, cM0) - Signed by Norman Gatica MD on 12/03/2024 Overview (09/13/2024): Last Assessment & Plan: 64-year-old woman with separate lung cancer of the right lower lobe after previously having 2 separate lung cancers in the superior segment of the right lower lobe and the posterior segment of the right upper lobe. Again I had a long discussion with her and her brother about all of her previous imaging and pathology results as described in HPI. I also discussed my conversation with the oncologist from [facility] who after reviewing everything with his pathologists and his team thought that surgical evaluation was probably the way to proceed. My surgical plan would be for right sided da Yudelka first evaluation of the additional PET avid area in the right chest and if this is not carcinoma, proceed with a mediastinal lymph node dissection to hopefully confirm there is no carcinoma and those lymph nodes followed by a right lower lobectomy depending on what we find initially. I did discuss the risks, benefits, and alternatives of this plan which they understood and agreed to proceed pending some further evaluation. I do agree with [facility] that getting a CT scan of the chest with IV contrast would be a good idea now considering things could have changed. Also, we will discuss her again at our multidisciplinary conference and plan on calling her after that. The hope is that we get the scan done either today or tomorrow after getting some labs and discuss her with that contrast scan on Friday. All questions were answered. Assessment & Plan (10/16/2024 9:18 PM EST): Ms. Partner is a 64 year old female who had a RUL posterior segmentectomy and a RLL superior segmentectomy in October 2023 for two separate stage I adenocarcinomas. Most recently she had a robotic right lower lobectomy on October 04, 2024. Pathology shows a stage IIB (pT2b, pN1) invasive solid adenocarcinoma. Her hilar and mediastinal lymph nodes that were sampled (previously enlarged and PET positive) were negative for malignancy and instead show non-necrotizing sarcoidal granulomatous lymphadenitis. Pathology discussed with the patient and her brother at today's visit. Will need follow up with Dr. Adams to discuss further adjuvant treatment needs. Molecular testing pending. Once her treatment is completed she will need ongoing surveillance CT scans. Typically every 6 months x 2 years, then yearly. Will plan for her first surveillance CT chest to be done in March 2025, however this may differ due to adjuvant treatment and post-treatment imaging. Will check in with medical oncology at that time and determine exact timing of her surveillance scans. Will plan to see patient back in the office after each surveillance scan. Assessment & Plan (10/16/2024 9:07 PM EST): Partner is a 64 year old female who had a RUL posterior segmentectomy and a RLL superior segmentectomy in October 2023 for two separate stage I adenocarcinomas. Most recently she had a robotic right lower lobectomy on October 04, 2024. She has a prolonged air leak and has needed ongoing chest tube. Chest tube site checked at today's visit. No sign of infection. Clear serous drainage on the existing dressing and minimal erythema at the chest tube insertion site which is more inflammatory and not concerning for infection. CXR today shows a stable small right apical pneumothorax. Her stay stitch was loose and I felt this may be attributing to her ongoing air leak. The existing stitch was removed and a new stay stitch was placed, as well as an additional mattress stitch, both using 1-0 Vicryl. 7cc 1% Lidocaine with epi used for this procedure. Patient tolerated this well. Will see patient back tomorrow for another chest tube check and possible clamping trial. 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 Bone marrow biopsy completed and was negative Left upper lobe mass- PET scan completed, no FDG uptake except left upperlobe mass, seen at [facility]- Dr Huang Dias and Dr Brett Kelly Following locally with Dr Estrada in [place] S/p RT Anxiety 06/05/2018 Narcolepsy due to underlying condition without c ataplexy 06/05/2018 Overview (09/13/2024): Since s, [facility] Neuro Dr. Reese per patient Psoriasis 06/05/2018 Resolved Problems Problem Noted Date Diagnosed Date Resolved Date Ataxia 07/08/2025 07/09/2025 Solitary pulmonary nodule 10/04/2024 Assessment & Plan (10/05/2024 12:31 PM EST): Reji Frazier is a 64 y.o. female with history of a posterior segmentectomy and superior segmentectomy for separate lung cancers about a year and a half ago who ended up developing a third lung cancer in the right lower lobe with significant mediastinal lymphadenopathy. Biopsy showed lung cancer but the biopsies of the mediastinal nodes were negative even though they were PET avid. She is S/P Robotic RLL on 2023 Lung nodule 10/09/2018 10/16/2024 Lung mass 07/28/2018 10/16/2024 Overview (09/13/2024): 07/18- incidental finding chest x-ray, left upper lobe 4 cm, 08/18- confirmed on CT, ?PNA vs malignancy, referred to pulmonology, f/u cxr in 1 month, chest CT 3-6 months for lung nodules 10/18- CT guided biopsy Encounters Date Type Department Care Team Description 08/04/2025 [facility] Hematology Oncology [address] [place] [address] Norman Gatica MD 08/02/2025 [facility] [address] [phone] Hortencia Zuniga RN 08/02/2025 [facility] [address] [phone] Ayde Vela [place] 07/29/2025 4:47 PM EDT - 08/03/2025 3:14 PM EDT Hospital Encounter [facility] Urology Unit [address] [place] [phone] Jean Claude Reynoso MD Jones, Christopher, MD Surendran, Anupama, MD Dyspnea, unspecified type (Primary Dx); Anemia, unspecified type; NSTEMI (non-ST elevated myocardial infarction) ([facility]/HCC V24, CMS/HCC V28); Atrial flutter with rapid ventricular response ([facility]/HCC V24, [facility]/HCC V28); Primary cancer of right lower lobe of lung (CMS/HCC V24, [facility] V28); Primary malignant neoplasm of lung metastatic to other site, unspecified laterality ([facility] V24, [facility] V28) Discharge Disposition: Home-Health Care c 07/29/2025 [facility] Hematology Oncology [address] [place] [phone] Norman Gatica MD 07/26/2025 [facility] [address] [phone] Jasmyn Lutz MD 07/25/2025 [facility] Hematology Oncology [address] [place] [phone] Norman Gatica MD 07/22/2025 [facility] Hematology Oncology [address] [place] [phone] Norman Gatica MD 07/19/2025 3:30 PM EDT Office Visit Pulmonology - [place] [facility] [address] [place] [phone] Tomasa Kenny MD Shortness of breath (Primary Dx); Mixed simple and mucopurulent chronic bronchitis (CMS/HCC V24, CMS/HCC V28); Esophageal dysphagia 07/18/2025 Telephone Infectious Disease [facility] [address] [place] [address] Primo Gee LPN 07/16/2025 11:49 AM EDT - 07/16/2025 6:35 PM EDT Emergency [facility] Emergency [address] [place] [phone] Dizziness (Primary Dx); Hypomagnesemia; Hypokalemia Discharge Disposition: Home or Self Care 07/13/2025 3:00 PM EDT Office Visit [facility] Hematology Oncology [address] [place] [phone] Norman Gatica MD Primary cancer of right lower lobe of lung (CMS/HCC V24, CMS/HCC V28) (Primary Dx); Primary cancer of right upper lobe of lung (CMS/HCC V24, CMS/HCC V28); B12 deficiency; Anxiety; Atrial flutter with rapid ventricular response ([facility] V24, CMS/HCC V28) 07/12/2025 Telephone [facility] Hematology Oncology [address] [place] [phone] Molly Kline MA 07/11/2025 2:09 PM EDT - 07/13/2025 3:03 PM EDT Hospital Encounter [facility] Intermediate Care Unit B [address] [place] [phone] Lance Flanagan MD Bukalo, Nermina, MD Rasul, Yar M, MD Atrial flutter with rapid ventricular response ([facility] V24, [facility] V28) (Primary Dx); Tachycardia; NSTEMI (non-ST elevated myocardial infarction) ([facility] V24, [facility] V28); Lung mass; Primary cancer of right lower lobe of lung ([facility] [place], [facility] [place]28[place] Discharge Disposition: Home-Health Care [facility] 07/08/2025 11:00 AM EDT - 07/09/2025 1:00 PM EDT Hospital Encounter [facility] Medical Surgical Unit [address] [place] [phone] Jean Claude Reynoso MD Shapiro, Benjamin, DO Jones, Christopher, MD Seralathan, Manikandan, MD Ataxia (Primary Dx); Romberg test positive Discharge Disposition: Home or Self Care 07/08/2025 Telephone Infectious Disease [facility] [address] [place] [address] Jasmyn Lutz MD 07/08/2025 [facility] Hematology Oncology [address] [place] [phone] Norman Gatica MD 06/30/2025 Telephone Thoracic Surgery - [place] [address] [facility] [address] [place] [phone] Zoie Hendrix RN 06/30/2025 [facility] Hematology Oncology [address] [place] [phone] Norman Gatica MD 06/29/2025 Telephone Infectious Disease [facility] [address] [phone] Jasmyn Lutz MD 06/23/2025 Telephone Infectious Disease [facility] [address] [place] [address] Primo Gee LPN 06/22/2025 3:30 PM EDT Consult Infectious Disease [address] [phone] Jasmyn Lutz MD Immunocompromised status associated with infection ([facility] [place]) (Primary Dx); Fungal infection of lung 06/20/2025 [facility] Hematology Oncology [address] [place] [phone] Norman Gatica MD 06/17/2025 Telephone [facility] Hematology Oncology [address] [place] [address] Norman Gatica MD 06/15/2025 Telephone Pulmonology [facility] [address] [facility] [address] [place] [address] Bell Marcus MA 06/14/2025 4:30 PM EDT - 06/14/2025 11:59 PM EDT Hospital Encounter [facility] Xray [address] [place] [phone] Pleural effusion, right Discharge Disposition: Home or Self Care 06/14/2025 3:00 PM EDT Office Visit Pulmonology - [place] [address] [phone] Tomasa Kenny MD Pleural effusion, right (Primary Dx) 06/10/2025 Telephone [facility] Hematology Oncology [address] [place] [address] Norman Gatica MD 06/01/2025 Telephone Infectious Disease - [place] [facility] [address] [place] [address] Hortencia Zuniga RN 05/31/2025 11:00 AM EDT Office Visit Pulmonology [facility] [address] [phone] Tomasa Kenny MD Pleural effusion, right (Primary Dx); Shortness of breath; Primary cancer of right lower lobe of lung (CMS/HCC V24, CMS/HCC V28); Primary cancer of right upper lobe of lung (CMS/HCC V24, CMS/HCC V28); Fungal infection of lung 05/20/2025 12:38 PM EDT Anesthesia Event [facility] Main OR [address] [place] [address] Eleazar Proctor MD Devlin, Brandon, SRNA 05/20/2025 12:05 PM EDT - 05/20/2025 2:35 PM EDT Surgery [facility] Main OR [address] [place] [phone] Tomasa Kenny MD FLEXIBLE BRONCHOSCOPY, CRYO, EBUS-TBMA BIOPSIES, LAVAGE, BALLOON DILATION, RIGHT THORACENTESIS, ENDOBRONCHIAL DEBRIDEMENT [17996 (CPT )] 05/20/2025 10:02 AM EDT - 05/20/2025 5:17 PM EDT Hospital Encounter [facility] Main OR [address] [place] [phone] Tomasa Kenny MD Lung mass Discharge Disposition: Home or Self Care 05/19/2025 7:39 AM EDT - 05/19/2025 11:59 PM EDT Hospital Encounter [facility] CT Scan [address] [place] [phone] Pleural effusion, right; Primary cancer of right lower lobe of lung ([facility] V24, [facility] V28) Discharge Disposition: Home or Self Care 05/18/2025 Telephone Thoracic Surgery - [place] [address] [phone] Zoie Hendrix RN 05/13/2025 3:00 PM EDT Office Visit Pulmonology - [place] [address] [phone] Tomasa Kenny MD Primary cancer of right upper lobe of lung ([facility] V24, [facility] V28) (Primary Dx); Pleural effusion, right; Primary cancer of right lower lobe of lung ([facility] V24, [facility] V28); Shortness of breath from Last 3 Months Immunizations Name Administration Dates Next Due Influenza Quadravalent, MDCK , 0.5ml, preservative free (Flucelvax) 6mo and older 01/28/2020,09/18/2018 Pneumococcal polysaccharide 23 valent (Pneumovax 23) 2yo and older 09/18/2018 Tdap Tetanus diptheria acell ular pertussis (Boostrix; Adacel) 7yo and older 12/07/2018 Surgical History Surgery Date Site/Laterality Comments OTHER SURGICAL HISTORY LUNG BIOPSY LUNG LOBECTOMY 10/04/2024 Right RLL Medical History Medical History Date Comments Hyperlipidemia Anxiety Depression Cancer ([facility] V24, [facility] V28) Psoriasis Primary cancer of right lower lobe of lung ([facility] V24, [facility] V28) Adenocarcinoma ([facility] V24, [facility] V28) Pleural effusion on right Social History Tobacco Use Types Packs/Day Years Used Date Smoking Tobacco: Former Cigarettes Smokeless Tobacco: Never Tobacco Cessation:Counseling Given: Not Answered Alcohol Use Standard Drinks/Week Comments Yes 0 [...] care for your loved ones. For example, professor of early childhood education or elderly care for an older adult? [...] Orientation Straight 03/25/2025 9: 21 AM EDT Obstetrics History Last Filed Vital Signs Vital Sign Reading [...] Mass Index 23.03 07/30/2025 7:06 AM EDT Plan of Treatment Upcoming Encounters Date Type Department Care Team (Latest Contact Info) Description 08/10/2025 10:25 AM EDT Hospital Encounter [facility] OR [address] [place] [phone] Tomasa Kenny MD [address] [place] [address] [phone] 08/10/2025 10:25 AM EDT - 08/10/2025 12:50 PM EDT Surgery [facility] OR [address] [place] [phone] Tomasa Kenny MD [address] [place] [address] [phone] FLEXIBLE/ RIGID BRONCHOSCOPY [08979 (CPT )] 08/12/2025 11:45 AM EDT Office Visit [facility] Hematology Oncology [address] [place] [phone] Norman Gatica MD [address] [place] [phone] 08/16/2025 3:30 PM EDT Office Visit Pulmonology - [place] [address] [facility] [address] [place] [phone] Tomasa Kenny MD [address] [place] [phone] 08/25/2025 8:15 AM EDT Appointment [facility] Xray [address] [place] [phone] 10/11/2025 3:30 PM EST Ancillary Procedure [facility] [address] [place] [phone] Scheduled Procedures Name Priority Associated Diagnoses Date/Ti me BRONCHOSCOPY Lung nodule 08/10/2025 10:25 AM EDT BRONCHOSCOPY NODULE 1 ROBOT Lung nodule 08/10/2025 10:25 AM EDT BRONCHOSCOPY NODULE 2 ROBOT Lung nodule 08/10/2025 10:[address] TRACHEOBRONCHIAL STENT Lung nodule 08/10/2025 10:25 AM EDT Health Maintenance Due Date Last Done Comments Zoster Vaccines (1 of 2) 1980 Cervical Cancer Screening: Pap Smear 1982 Pneumococcal Vaccine: 50+ Years (2 of 2 - PCV) 09/18/2019 09/18/2018 HIV Screening 11/09/2022 Lung Cancer Screening (Low Dose CT) 11/09/2022 Breast Cancer Screening 11/02/2023 11/02/2021, 10/02 Depression Screening 12/01/2024 COVID-19 Vaccine ( season) 2025 09/04/2023, 06/13/2022, 01/24/2021, Additional history exists Influenza Vaccine (#1) 2025 , 09/05/2022, 01/28/2020, Additional history exists Social Influencers of Health Screening 08/02/2026 08/02/2025 DTaP,Tdap,and Td Vaccines (2 - Td or Tdap) 12/07/2028 12/07/2018 Colorectal Cancer Screening: Colonoscopy 05/14/2029 05/14/2019 Cholesterol Screening (Lipid Panel) 07/08/2030 07/08/2025, 01/28/2020 RSV Immunization Adult Patients (1 - 1-dose 75+ series) 2036 Hepatitis C Screening Completed 07/28/2018 HIB Vaccines Aged Out No longer eligi ble based on patient's age to complete this topic HPV Vaccines Aged Out No longer eligi ble based on patient's age to complete this topic Hepatitis A Vaccines Aged Out No long er eligible based on patient's age to complete this topic Hepatitis B Vaccines Aged Out No long er eligible based on patient's age to complete this topic IPV Vaccines Aged Out No longer eligi ble based on patient's age to complete this topic MMR Vaccines Aged Out No longer eligi ble based on patient's age to complete this topic Meningococcal ACWY Vaccine Aged Out N o longer eligible based on patient's age to complete this topic Meningococcal B Vaccine Aged Out No l onger eligible based on patient's age to complete this topic RSV Immunization Patients Under 20 months Aged Out No longer eligible based on patient's age to complete this topic Varicella Vaccines Aged Out No longer eligible based on patient's age to complete this topic Medical Devices Implanted Type Area Organic Chemistry Professor Device Identifier Shelf Expiration Date Model / Serial / Lot Sealant Fibrin Vistaseal 10ml - [id number] - [id number] Implanted:Qty: 1 on 10/04/2024 by Radha Spencer MD at [facility] Hemostasis Right: Lung [employer] 01/07/2026 VST10 / [id number] / [id number] Sealant Progel Air Pleural 4ml - Sn/A - [id number] Implanted:Qty: 1 on 10/04/2024 by Radha Spencer MD at [facility] Osteobi[employer]ics Right: Lung CR BARD [employer] 05/14/2026 [id number] / N/A / [id number] Procedures Procedure Name Priority Date/Time Associated Diagnosis Comments PATHOLOGIST REVIEW BLOOD SMEAR Routine 08/02/2025 5:32 AM EDT CBC WITH AUTO DIFFERENTIAL Routine 08/02/2025 5:32 AM EDT PHOSPHORUS Routine 08/02/2025 5:32 AM EDT MAGNESIUM Routine 08/02/2025 5:32 AM EDT CBC AND DIFFERENTIAL Routine 08/02/2025 5:32 AM EDT BASIC METABOLIC PANEL Routine 08/02/2025 5:32 AM EDT TYPE AND SCREEN Routine 08/01/2025 11:50 AM EDT PREPARE RBC Routine 08/01/2025 11:24 AM EDT CBC WITH AUTO DIFFERENTIAL Routine 07/31/2025 5:24 AM EDT BASIC METABOLIC PANEL Routine 07/31/2025 5:24 AM EDT CBC AND DIFFERENTIAL Routine 07/31/2025 5:24 AM EDT ECG 12-LEAD STAT 07/30/2025 7:50 PM EDT ECG 12-LEAD Routine 07/30/2025 7:03 AM EDT CBC WITH AUTO DIFFERENTIAL Routine 07/30/2025 6:22 AM EDT TROPONIN I HIGH SENSITIVITY Routine 07/30/2025 6:22 AM EDT MAGNESIUM Routine 07/30/2025 6:22 AM EDT CBC AND DIFFERENTIAL Routine 07/30/2025 6:22 AM EDT BASIC METABOLIC PANEL Routine 07/30/2025 6:22 AM EDT TROPONIN I HIGH SENSITIVITY Routine 07/30/2025 12:03 AM EDT MRSA PCR STAT 07/29/2025 10:44 PM EDT TROPONIN I HIGH SENSITIVITY Timed 07/29/2025 7:02 PM EDT ECG 12-LEAD Routine 07/29/2025 7:[address] ANGIO CHEST WO AND/OR W CONTRAST STAT 07/29/2025 6:50 PM EDT Dyspnea, unspecified type PROCALCITONIN Add-On 07/29/2025 5:08 PM EDT ETHANOL STAT Add-on 07/29/2025 5:08 PM EDT VITAMIN B12 AND FOLATE Add-On 5:08 PM EDT IRON AND TIBC Add-On 07/29/2025 5:08 PM EDT RETICULOCYTE COUNT Add-On 07/29/2025 5:08 PM EDT HEPATIC FUNCTION PANEL STAT Add-on 5:08 PM EDT B-TYPE NATRIURETIC PEPTIDE STAT 07/29/2025 5:08 PM EDT CBC WITH AUTO DIFFERENTIAL STAT 07/29/2025 5:08 PM EDT TROPONIN I HIGH SENSITIVITY Timed 07/29/2025 5:08 PM EDT MAGNESIUM STAT 07/29/2025 5:08 PM EDT BASIC METABOLIC PANEL STAT 07/29/2025 5:08 PM EDT CBC AND DIFFERENTIAL STAT 07/29/2025 5:08 PM EDT XR CHEST 2 VIEWS STAT 07/29/2025 3:12 PM EDT ECG 12-LEAD STAT 07/29/2025 3:02 PM EDT POCT GLUCOSE BLOOD Routine 07/29/2025 2:58 PM EDT [id number], RSV, FLU A AND B QUALITATIVE RT-PCR, INTERNAL LAB STAT 07/29/2025 2:55 PM EDT TROPONIN I HIGH SENSITIVITY STAT 07/16/2025 5:32 PM EDT TROPONIN I HIGH SENSITIVITY STAT 07/16/2025 3:23 PM EDT CBC WITH AUTO DIFFERENTIAL STAT 07/16/2025 12:34 PM EDT TROPONIN I HIGH SENSITIVITY STAT 07/16/2025 12:34 PM EDT THYROID STIMULATING HORMONE WITH REFLEX TO FREE T4 AND FREE T3 STAT 07/16/2025 12:34 PM EDT MAGNESIUM STAT 07/16/2025 12:34 PM EDT BASIC METABOLIC PANEL STAT 07/16/2025 12:34 PM EDT CBC AND DIFFERENTIAL STAT 07/16/2025 12:34 PM EDT ECG 12-LEAD STAT 07/16/2025 12:18 PM EDT CBC WITH AUTO DIFFERENTIAL Timed 07/13/2025 6:41 AM EDT BASIC METABOLIC PANEL Timed 07/13/2025 6:41 AM EDT CBC AND DIFFERENTIAL Timed 07/13/2025 6:41 AM EDT ECG 12-LEAD Routine 07/12/2025 10:20 AM EDT HEPARIN AND LOW MOLECULAR WEIGHT ANTI XA LEVEL Routine 07/12/2025 10:00 AM EDT TRANSTHORACIC ECHOCARDIOGRAM (TTE) COMPLETE W/ CONTRAST Routine 07/12/2025 8:27 AM EDT Tachycardia Atrial flutter with rapid ventricular response (CMS/HCC V24, CMS/HCC V28) HEPARIN AND LOW MOLECULAR WEIGHT ANTI XA LEVEL Timed 07/12/2025 6:51 AM EDT LAVENDER - EDTA Routine 07/12/2025 4:18 AM EDT EXTRA TUBES Routine 07/12/2025 4:18 AM EDT BASIC METABOLIC PANEL Routine 07/12/2025 4:18 AM EDT HEPARIN AND LOW MOLECULAR WEIGHT ANTI XA LEVEL Timed 07/12/2025 4:18 AM EDT YELLOW URINE NO ADDITIVE Routine 07/12/2025 2:35 AM EDT HINTON URINE CULTURE TUBE Routine 07/12/2025 2:35 AM EDT EXTRA TUBES Routine 07/12/2025 2:35 AM EDT URINALYSIS WITH REFLEX MICROSCOPIC STAT 07/12/2025 2:35 AM EDT URINALYSIS WITH REFLEX MICROSCOPIC STAT 07/12/2025 2:35 AM EDT DRUG ABUSE SCREEN 8A PANEL, URINE STAT 07/12/2025 2:35 AM EDT ECG ANNOTATED 07/12/2025 TROPONIN I HIGH SENSITIVITY Routine 07/11/2025 10:14 PM EDT HEPARIN AND LOW MOLECULAR WEIGHT ANTI XA LEVEL Timed 07/11/2025 10:14 PM EDT XR CHEST 2 VIEWS STAT 07/11/2025 5:39 PM EDT HEPARIN AND LOW MOLECULAR WEIGHT ANTI XA LEVEL STAT 07/11/2025 4:51 PM EDT ACTIVATED PARTIAL THROMBOPLASTIN TIME STAT 07/11/2025 4:51 PM EDT PROTHROMBIN TIME WITH INR STAT 07/11/2025 4:51 PM EDT ECG 12-LEAD STAT 07/11/2025 4:[address] ANGIO CHEST WO AND/OR W CONTRAST STAT 07/11/2025 3:[address] HEAD WO CONTRAST STAT 07/11/2025 3:57 PM EDT POCT GLUCOSE BLOOD Routine 07/11/2025 3:10 PM EDT COMPREHENSIVE METABOLIC PANEL STAT 07/11/2025 2:56 PM EDT CBC WITH AUTO DIFFERENTIAL STAT 07/11/2025 2:56 PM EDT VENOUS BLOOD GAS STAT 07/11/2025 2:56 PM EDT LACTATE STAT 07/11/2025 2:56 PM EDT B-TYPE NATRIURETIC PEPTIDE STAT 07/11/2025 2:56 PM EDT TROPONIN I HIGH SENSITIVITY STAT 07/11/2025 2:56 PM EDT CBC AND DIFFERENTIAL STAT 07/11/2025 2:56 PM EDT ECG 12-LEAD STAT 07/11/2025 2:29 PM EDT WV CRITICAL CARE 30-74 MINUTES Routine 07/11/2025 2:09 PM EDT ECG ANNOTATED 07/11/2025 IRON AND TIBC STAT Add-on 07/09/2025 6:04 AM EDT FERRITIN STAT Add-on 07/09/2025 6:04 AM EDT FOLATE STAT Add-on 07/09/2025 6:04 AM EDT VITAMIN B12 STAT Add-on 07/09/2025 6:04 AM EDT COMPLETE BLOOD COUNT Routine 07/09/2025 6:04 AM EDT MAGNESIUM Routine 07/09/2025 6:04 AM EDT BASIC METABOLIC PANEL Routine 07/09/2025 6:[address] ANGIO HEAD/NECK WO AND/OR W CONTRAST STAT 07/08/2025 4:22 PM EDT VITAMIN B1 STAT 07/08/2025 2:06 PM EDT AMMONIA STAT 07/08/2025 12:58 PM EDT ECG 12-LEAD STAT 07/08/2025 12:38 PM EDT HINTON URINE CULTURE TUBE STAT 07/08/2025 12:25 PM EDT URINALYSIS WITH REFLEX MICROSCOPIC AND CULTURE STAT 07/08/2025 12:25 PM EDT URINALYSIS WITH REFLEX MICROSCOPIC AND CULTURE STAT 07/08/2025 12:25 PM EDT CULTURE URINE STAT 07/08/2025 12:25 PM EDT TRIIODOTHYRONINE FREE Routine 07/08/2025 12:19 PM EDT FREE THYROXINE WITH REFLEX TO FREE TRIIODOTHYRONINE Routine 07/08/2025 12:19 PM EDT THYROID STIMULATING HORMONE WITH REFLEX TO FREE T4 AND FREE T3 Add-On 07/08/2025 12:19 PM EDT LIPID PANEL WITH REFLEX TO DIRECT LDL Add-On 07/08/2025 12:19 PM EDT HEMOGLOBIN A1C Add-On 07/08/2025 12:19 PM EDT ETHANOL Add-On 07/08/2025 12:19 PM EDT CBC WITH AUTO DIFFERENTIAL STAT 07/08/2025 12:19 PM EDT MAGNESIUM STAT 07/08/2025 12:19 PM EDT TROPONIN I HIGH SENSITIVITY STAT 07/08/2025 12:19 PM EDT COMPREHENSIVE METABOLIC PANEL STAT 07/08/2025 12:19 PM EDT CBC AND DIFFERENTIAL STAT 07/08/2025 12:19 PM EDT XR CHEST 2 VIEWS STAT 07/08/2025 11:[address] HEAD WO CONTRAST STAT 07/08/2025 11:36 AM EDT ECG Routine 06/28/2025 2:37 PM EDT XR CHEST 2 VIEWS Routine 06/14/2025 4:36 PM EDT Pleural effusion, right WV THORACENTESIS PLEURAL SPACE NEEDLE/CATH ASPIRATION W IMAGING GUIDANCE Routine 06/14/2025 4:26 PM EDT Pleural effusion, right NON-GYNECOLOGIC CYTOLOGY Routine 06/14/2025 4:20 PM EDT Pleural effusion, right DIFFERENTIAL BODY FLUID Routine 06/14/2025 4:20 PM EDT Pleural effusion, right PROTEIN, BODY FLUID Routine 06/14/2025 4:20 PM EDT Pleural effusion, right LACTATE DEHYDROGENASE, BODY FLUID Routine 06/14/2025 4:20 PM EDT Pleural effusion, right GLUCOSE, BODY FLUID Routine 06/14/2025 4:20 PM EDT Pleural effusion, right CELL COUNT WITH REFLEX DIFFERENTIAL, BODY FLUID Routine 06/14/2025 4:20 PM EDT Pleural effusion, right CULTURE BODY FLUID WITH GRAM STAIN Routine 06/14/2025 4:20 PM EDT Pleural effusion, right MOLECULAR INTELLIGENCE TUMOR PROFILING Routine 06/09/2025 10:55 AM EDT MOLECULAR INTELLIGENCE TUMOR PROFILING Routine 06/09/2025 10:52 AM EDT XR CHEST 1 VIEW STAT 05/20/2025 3:51 PM EDT TISSUE EXAM Routine 05/20/2025 2:15 PM EDT Lung mass .PATHOLOGIST REVIEW FLOW CYTOMETRY Routine 05/20/2025 1:47 PM EDT Lung mass LEUKEMIA, LYMPHOMA EVALUATION BY FLOW CYTOMETRY Routine 05/20/2025 1:47 PM EDT Lung mass ..CONCENTRATION Routine 05/20/2025 1:24 PM EDT Lung mass ACID FAST BACILLI STAIN Routine 05/20/2025 1:24 PM EDT Lung mass CULTURE BRONCHIAL WITH GRAM STAIN Routine 05/20/2025 1:24 PM EDT Lung mass CULTURE, AFB AND SMEAR WITH REFLEX TO IDENTIFICATION AND SUSCEPTIBILITY Routine 05/20/2025 1:24 PM EDT Lung mass CULTURE FUNGAL, OTHER Routine 05/20/2025 1:24 PM EDT Lung mass TH AN ENDOTRACHEAL(NO CHARGE) Routine 05/20/2025 1:18 PM EDT NON-GYNECOLOGIC CYTOLOGY Routine 05/20/2025 12:59 PM EDT Lung mass .PATHOLOGIST REVIEW FLOW CYTOMETRY Routine 05/20/2025 12:59 PM EDT Lung mass LEUKEMIA, LYMPHOMA EVALUATION BY FLOW CYTOMETRY Routine 05/20/2025 12:59 PM EDT Lung mass DIFFERENTIAL BODY FLUID STAT 05/20/2025 12:57 PM EDT Lung mass CELL COUNT WITH REFLEX DIFFERENTIAL, BODY FLUID STAT 05/20/2025 12:57 PM EDT Lung mass TRIGLYCERIDES, BODY FLUIDS STAT 05/20/2025 12:57 PM EDT Lung mass PROTEIN, BODY FLUID STAT 05/20/2025 12:57 PM EDT Lung mass LACTATE DEHYDROGENASE, BODY FLUID STAT 05/20/2025 12:57 PM EDT Lung mass GLUCOSE, BODY FLUID STAT 05/20/2025 12:57 PM EDT Lung mass CULTURE BODY FLUID WITH GRAM STAIN Routine 05/20/2025 12:57 PM EDT Lung mass WV BRONCHOSCOPY INCL FLUOROSCOPIC GUID W EBUS DURING PERIPHERAL LESION 05/20/2025 12:38 PM EDT Lung mass Case Notes Bronchoscopy, linear EBUS TBNA and cryobiopsies; RIGHT thoracentesis vs pleurx CT CHEST WO CONTRAST STAT 05/19/2025 7:46 AM EDT Pleural effusion, right Primary cancer of right lower lobe of lung (CMS/HCC V24, CMS/HCC V28) [facility] SCREENING DIGITAL Routine 11/02/2021 3:34 PM EST Encounter for screening mammogram for malignant neoplasm of breast COLONOSCOPY Routine 05/14/2019 HEPATITIS C SCREENING Routine 07/28/2018 from Last 3 Months or Most Recently Relevant to Health Maintenance Results * Pathology review, blood smear (08/02/2025 5:32 AM EDT) Pathologist Review Blood Smear Granulocytosis : consider infection or other reactive causes. Normocytic anemia: smear not diagnostic of etiology. Target cells: consider liver disease or other etiology. 08/02/2025 10:14 AM EDT [facility] Blood Venous blood specimen / Unknown Venipuncture / Unknown 08/02/2025 5:32 AM EDT 08/02/2025 6:07 AM EDT Lindsay Mederos MD LAB BLOOD ORDERABLES Final Result [facility] [address] [place] [address], * (ABNORMAL) CBC auto differential (08/02/2025 5:32 AM EDT) Only the most recent of8 resultswithin the time period is included. WBC 31.0(H) 4.8 - 10.8 K/[facility] LAB HEMETOLOGY METHOD 08/02/2025 8:21 AM EDT [facility] RBC 3.60(L) 3.80 - 4.80 M/[facility] LAB HEMETOLOGY METHOD 08/02/2025 8:21 AM [facility] Hemoglobin 9.4(L) 11.5 - 16.0 g/dL LAB HEMETOLOGY METHOD 08/02/2025 8:21 AM [facility] Hematocrit 29.5(L) 35.0 - 47.0 % LAB HEMETOLOGY METHOD 08/02/2025 8:21 AM [facility] MCV 83.1 79.0 - 98.0 FL LAB HEMETOLOGY METHOD 08/02/2025 8:21 AM [facility] MCH 26.5(L) 27.0 - 32.0 pcg LAB HEMETOLOGY METHOD 08/02/2025 8:21 AM [facility] MCHC 31.9(L) 32.0 - 37.0 g/dL LAB HEMETOLOGY METHOD 08/02/2025 8:21 AM [facility] RDW 18.5(H) 11.0 - 15.0 % LAB HEMETOLOGY METHOD 08/02/2025 8:21 AM [facility] Platelets 399 130 - 400 K/mcL LAB HEMETOLOGY METHOD 08/02/2025 8:21 AM [facility] MPV 9.6 7.0 - 11.0 FL LAB HEMETOLOGY METHOD 08/02/2025 8:21 AM [facility] NRBC 0.0 <1.0 % LAB HEMETOLOGY METHOD 08/02/2025 8:21 AM [facility] NRBC Absolute 0.00 <0.10 K/mcL LAB HEMETOLOGY METHOD 08/02/2025 8:21 AM [facility] Neutrophils Relative 90.5 % LAB HEMETOLOGY METHOD 08/02/2025 8:21 AM [facility] Comment:This is an appended report. These results have been appended to a previously preliminary verified report. Lymphocytes Relative 1.9 % LAB HEMETOLOGY METHOD 08/02/2025 8:21 AM [facility] Comment:This is an appended report. These results have been appended to a previously preliminary verified report. Monocytes Relative 5.7 % LAB HEMETOLOGY METHOD 08/02/2025 8:21 AM [facility] Comment:This is an appended report. These results have been appended to a previously preliminary verified report. Eosinophils Relative 0.0 % LAB HEMETOLOGY METHOD 08/02/2025 8:21 AM [facility] Comment:This is an appended report. These results have been appended to a previously preliminary verified report. Basophils Relative 0.2 % LAB HEMETOLOGY METHOD 08/02/2025 8:21 AM [facility] Comment:This is an appended report. These results have been appended to a previously preliminary verified report. Immature Granulocytes Relative 1.7 % LAB HEMETOLOGY METHOD 08/02/2025 8:21 AM [facility] Comment:This is an appended report. These results have been appended to a previously preliminary verified report. Neutrophils Absolute 28.08(H) 1.50 - 7.00 K/mcL LAB HEMETOLOGY METHOD 08/02/2025 8:21 AM [facility] Comment:This is an appended report. These results have been appended to a previously preliminary verified report. Lymphocytes Absolute 0.58(L) 1.00 - 5.00 K/mcL LAB HEMETOLOGY METHOD 08/02/2025 8:21 AM [facility] Comment:This is an appended report. These results have been appended to a previously preliminary verified report. Monocytes Absolute 1.78(H) 0.20 - 1.00 K/mcL LAB HEMETOLOGY METHOD 08/02/2025 8:21 AM [facility] Comment:This is an appended report. These results have been appended to a previously preliminary verified report. Eosinophils Absolute 0.00 0.00 - 0.50 K/mcL LAB HEMETOLOGY METHOD 08/02/2025 8:21 AM EDT [facility] Comment:This is an appended report. These results have been appended to a previously preliminary verified report. Basophils Absolute 0.05 0.00 - 0.20 K/mcL LAB HEMETOLOGY METHOD 08/02/2025 8:21 AM EDT [facility] Comment:This is an appended report. These results have been appended to a previously preliminary verified report. Immature Granulocytes Absolute 0.52(H) 0.00 - 0.03 K/mcL LAB HEMETOLOGY METHOD 08/02/2025 8:21 AM EDT [facility] Comment:This is an appended report. These results have been appended to a previously preliminary verified report. Blood Venous blood specimen / Unknown Venipuncture / Unknown 08/02/2025 5:32 AM EDT 08/02/2025 6:07 AM EDT Lindsay Mederos MD LAB BLOOD ORDERABLES Final Result [facility] [address] [place] [address], [place] [phone] * Phosphorus (08/02/2025 5:32 AM EDT) Phosphorus 3.0 2.5 - 4.5 mg/dL LAB CHEMISTRY METHOD 08/02/2025 7:26 AM EDT [facility] Blood Venous blood specimen / Unknown Venipuncture / Unknown 08/02/2025 5:32 AM EDT 08/02/2025 6:07 AM EDT us Lindsay Mederos MD LAB BLOOD ORDERABLES Final Result Performing Organization Address City/[facility]/ZIP Co de Phone Number [facility] [address] [place] [address], [place] [phone] * Magnesium (08/02/2025 5:32 AM EDT) Only the most recent of6 resultswithin the time period is included. Pathologist [facility] Magnesium 1.9 1.9 - 2.6 mg/dL LAB CHEMISTRY METHOD 08/02/2025 7:26 AM [facility] Blood Venous blood specimen / Unknown Venipuncture / Unknown 08/02/2025 5:32 AM EDT 08/02/2025 6:07 AM EDT Lindsay Mederos MD LAB BLOOD ORDERABLES Final Result [facility] [address] [place] [address], [place] [phone] * (ABNORMAL) Basic metabolic panel (08/02/2025 5:32 AM EDT) Only the most recent of8 resultswithin the time period is included. [facility] Sodium 138 133 - 145 mmol/L LAB CHEMISTRY METHOD 08/02/2025 7:28 AM [facility] Potassium 4.0 3.5 - 5.5 mmol/L LAB CHEMISTRY METHOD 08/02/2025 7:28 AM [facility] Chloride 101 96 - 110 mmol/L LAB CHEMISTRY METHOD 08/02/2025 7:28 AM [facility] CO2 30 21 - 32 mmol/L LAB CHEMISTRY METHOD 08/02/2025 7:28 AM [facility] Anion Gap 7 3 - 11 LAB CHEMISTRY METHOD 08/02/2025 7:28 AM [facility] Glucose 142(H) 70 - 100 mg/dL LAB CHEMISTRY METHOD 08/02/2025 7:28 AM [facility] BUN 13 5 - 25 mg/dL LAB CHEMISTRY METHOD 08/02/2025 7:28 AM [facility] Creatinine 0.67 0.50 - 1.10 mg/dL LAB CHEMISTRY METHOD 08/02/2025 7:28 AM EDT [facility] eGFR 98 >=60 mL/min/1. 73m2 LAB CHEMISTRY METHOD 08/02/2025 7:28 AM EDT [facility] Comment:Calculation based on the Chronic Kidney Disease Epidemiology Collaboration (CKD-EPI) equation refit without adjustment for race. BUN/Creatinine Ratio 19.4 LAB CHEMISTRY METHOD 08/02/2025 7:28 AM EDT [facility] Calcium 9.5 8.5 - 10.5 mg/dL LAB CHEMISTRY METHOD 08/02/2025 7:28 AM EDT [facility] Blood Venous blood specimen / Unknown Venipuncture / Unknown 08/02/2025 5:32 AM EDT 08/02/2025 6:07 AM EDT Lindsay Mederos MD LAB BLOOD ORDERABLES Final Result [facility] [address] [place] [address], [place] [phone] * Type and screen (08/01/2025 11:50 AM EDT) ABO Group A 08/01/2025 1:09 PM EDT [facility] Rh Type Positive 08/01/2025 1:09 PM EDT [facility] Antibody Screen Negative 08/01/2025 1:09 PM EDT [facility] Blood Venous blood specimen / Unknown Venipuncture / Unknown 08/01/2025 11:50 AM EDT 08/01/2025 12:04 PM EDT us Lindsay Mederos MD LAB BLOOD BANK TEST ORDERAB LES Final Result [facility] [address] [place] [address], * Prepare RBC: 1 Units (08/01/2025 11:24 AM EDT) Product Code [id number] 08/01/2025 1:59 PM EDT [facility] Unit Number [id number] 08/01/20 1:59 PM EDT [facility] Crossmatch Compatible 08/01/2025 1:12 PM EDT [facility] Dispense Status Transfused 08/01/2025 1:59 PM EDT [facility] Unit ABO Rh APOS 08/01/2025 1:59 PM EDT [facility] Unit Expiration Date Time [id number] 08/01/2025 1:59 PM EDT [facility] Unit Blood Type 6200 08/01/2025 1:59 PM EDT [facility] Blood Venous blood specimen / Unknown 08/01/2025 11:24 AM EDT 08/01/2025 12:04 PM EDT Lindsay Mederos MD BLOOD BANK PRODUCT ORDERABL ES Final Result [facility] [address] [place] [address], * ECG 12 lead (07/30/2025 7:50 PM EDT) Only the most recent of9 resultswithin the time period is included. Ventricular Rate ECG 138 BPM GEMUSE Atrial Rate 138 BPM GEMUSE QRS Duration 82 ms GEMUSE Q-T Interval 334 ms GEMUSE QTc 506 ms GEMUSE R [place] 25 degrees GEMUSE T [place] 59 degrees GEMUSE ECG Interpretation sinus rhythm changed to Atrial fibrillation with rapid ventricular response Nonspecific T wave abnormality Abnormal ECG When compared with ECG of 30-JUL-2025 07:03, Atrial fibrillation has replaced Sinus rhythm Confirmed by Anabell HENRIQUEZ YUFENG ([id number]) on 08/02/2025 8:33:57 PM GEMUSE 07/30/2025 7:50 PM EDT 08/02/2025 8:33 PM EDT Lindsay Mederos MD ECG ORDERABLES Final Resul t Performing Organization Address City/[facility] Co de Phone Number GEMUSE * (ABNORMAL) Troponin I high sensitivity (07/30/2025 6:22 AM EDT) Only the most recent of10 resultswithin the time period is included. [facility] High Sensitivity Troponin I 225(HH) <=54 ng/L LAB CHEMISTRY METHOD 07/30/2025 7:24 AM EDT [facility] Blood Venous blood specimen / Unknown Venipuncture / Unknown 07/30/2025 6:22 AM EDT 07/30/2025 6:33 AM EDT Narrative [facility] - 07/30/2025 7:24 AM EDT High levels of biotin in samples may falsely decrease hsTroponin values. Use caution when interpreting hsTroponin results in patients taking biotin who exhibit renal impairment (eGFR <60) or in patients taking more than 20 mg/day of biotin. Phuc Velásqeuz MD LAB BLOOD ORDERABLES Final Result Performing Organization Address City/[facility] de Phone Number [facility] [address] [place] [address], * MRSA molecular study (07/29/2025 10:44 PM EDT) [facility] MRSA Screen PCR Not Detected Not Detected LAB MICROBIOLOGY METHOD 07/30/2025 12:09 AM EDT [facility] Swab Both anterior nares / Unknown Non-blood Collection / Unknown 07/29/2025 10:44 PM EDT 07/29/2025 10:56 PM EDT us Phuc Velásquez MD LAB MICROBIOLOGY - GENERAL ORDERABLES Final Result [facility] [address] [place] [address], * CT Angio Chest wo and/or w Contrast (07/29/2025 6:50 PM EDT) Only the most recent of2 resultswithin the time period is included. Anatomical Region Laterality Modality Body Computed Tomogra phy 07/29/2025 7:24 PM EDT Impressions 07/29/2025 7:24 PM EDT 1. No pulmonary embolus. 2. Bulky mediastinal and hilar adenopathy as before, demonstrating bronchovascular encasement as described above. 3. Small exyud-fgqmbqq-jgqs-left pleural effusions. 4. Coronary artery disease. This [...] pulmonary nodules. Moderate apical predominant emphysema. Small fyeaf-tbkrlah-njni-left pleural effusions. The visualized upper abdomen is [...] pulmonary nodules. Moderate apical predominant emphysema. Small iehci-gljkzwm-onhx-left pleural effusions. The visualized upper abdomen is unremarkable. No acute fractures. IMPRESSION: 1. No pulmonary embolus. 2. Bulky mediastinal and hilar adenopathy as before, demonstrating bronchovascular encasement as described above. 3. Small yrdzt-hxjqnmh-oczf-left pleural effusions. 4. Coronary artery disease. This document has been electronically signed by: Mary Casas MD on 07/29/2025 19:24:26 Jean Claude Reynoso MD IMG CT PROCEDURES Final Res ult * (ABNORMAL) Vitamin B12 and folate (07/29/2025 5:08 PM EDT) Vitamin B-12 1,829(H) 250 - 900 pcg/mL LAB CHEMISTRY METHOD 07/29/2025 9:27 PM EDT [facility] Folate >20.0(H) 2.8 - 17.0 ng/ml LAB CHEMISTRY METHOD 07/29/2025 9:27 PM EDT [facility] Blood Venous blood specimen / Unknown Venipuncture / Unknown 07/29/2025 5:08 PM EDT 07/29/2025 5:46 PM EDT Phuc Velásquez MD LAB BLOOD ORDERABLES Final Result [facility] [address] [place] [address], [place] [phone] * Procalcitonin (07/29/2025 5:08 PM EDT) Procalcitonin 0.11 <=0.16 ng/mL LAB CHEMISTRY METHOD 07/30/2025 10:13 AM EDT [facility] Blood Venous blood specimen / Unknown Venipuncture / Unknown 07/29/2025 5:08 PM EDT 07/29/2025 5:46 PM EDT Narrative [facility] - 07/30/2025 10:13 AM EDT [...] Velásquez MD LAB BLOOD ORDERABLES Final Result [facility] [address] [place] [address], [place] [phone] * (ABNORMAL) Iron and TIBC (07/29/2025 5:08 PM EDT) Only the most recent of2 resultswithin the time period is included. Iron 14(L) 40 - 150 mcg/dL LAB CHEMISTRY METHOD 07/29/2025 8:39 PM EDT [facility] TIBC 253 250 - 450 mcg/dL LAB CHEMISTRY METHOD 07/29/2025 8:39 PM EDT [facility] Iron Saturation 6(L) 15 - 50 % LAB CHEMISTRY METHOD 07/29/2025 8:39 PM EDT [facility] Blood Venous blood specimen / Unknown Venipuncture / Unknown 07/29/2025 5:08 PM EDT 07/29/2025 5:46 PM EDT us Phuc Velásquez MD LAB BLOOD ORDERABLES Final Result Performing Organization Address City/[facility]/ZIP Co de Phone Number [facility] [address] [place] [address], [place] [phone] * (ABNORMAL) Reticulocyte count (07/29/2025 5:08 PM EDT) Retic Ct Abs 0.100(H) 0.030 - 0.090 M/mcL LAB HEMETOLOGY METHOD 07/29/2025 8:30 PM EDT [facility] Retic Ct Pct 3.4(H) 0.7 - 1.7 % LAB HEMETOLOGY METHOD 07/29/2025 8:30 PM EDT [facility] Immature Retic Fract 32.4(H) 2.3 - 15.9 % LAB HEMETOLOGY METHOD 07/29/2025 8:30 PM EDT [facility] Reticulocyte Hemoglobin 28.3(L) >29.0 pcg LAB HEMETOLOGY METHOD 07/29/2025 8:30 PM EDT [facility] Blood Venous blood specimen / Unknown Venipuncture / Unknown 07/29/2025 5:08 PM EDT 07/29/2025 5:46 PM EDT us Phuc Velásquez MD LAB BLOOD ORDERABLES Final Result [facility] [address] [place] [address], [place] [phone] * B-type natriuretic peptide (07/29/2025 5:08 PM EDT) Only the most recent of2 resultswithin the time period is included. BNP 35 <=100 pcg/mL LAB CHEMISTRY METHOD 07/29/2025 6:33 PM EDT [facility] Blood Venous blood specimen / Unknown Venipuncture / Unknown 07/29/2025 5:08 PM EDT 07/29/2025 5:45 PM EDT Jean Claude Reynoso MD LAB BLOOD ORDERABLES Final Result Performing Organization Address [facility] Co de Phone Number [facility] [address] [place] [address], * Ethanol (07/29/2025 5:08 PM EDT) Only the most recent of2 resultswithin the time period is included. Ethanol Level <3 0 - 10 mg/dL LAB CHEMISTRY METHOD 07/29/2025 10:14 PM EDT [facility] Blood Venous blood specimen / Unknown Venipuncture / Unknown 07/29/2025 5:08 PM EDT 07/29/2025 5:46 PM EDT Phuc Velásquez MD LAB BLOOD ORDERABLES Final Result Performing Organization Address City/[facility]/ZIP Co de Phone Number [facility] [address] [place] [address], [place] [phone] * (ABNORMAL) Hepatic function panel (07/29/2025 5:08 PM EDT) Total Protein 6.1 6.0 - 8.0 g/dL LAB CHEMISTRY METHOD 07/29/2025 8:24 PM EDT [facility] Albumin 2.5(L) 3.2 - 5.0 g/dL LAB CHEMISTRY METHOD 07/29/2025 8:24 PM EDT [facility] Total Bilirubin 0.4 0.0 - 1.4 mg/dL LAB CHEMISTRY METHOD 07/29/2025 8:24 PM EDT [facility] Bilirubin, Direct 0.1 0.0 - 0.3 mg/dL LAB CHEMISTRY METHOD 07/29/2025 8:24 PM EDT [facility] Bilirubin, Indirect 0.3 0.0 - 1.1 mg/dL LAB CHEMISTRY METHOD 07/29/2025 8:24 PM EDT [facility] ALT (SGPT) 24 10 - 60 unit/L LAB CHEMISTRY METHOD 07/29/2025 8:24 PM EDT [facility] AST (SGOT) 26 10 - 42 unit/L LAB CHEMISTRY METHOD 07/29/2025 8:24 PM EDT [facility] Alkaline Phosphatase 137(H) 42 - 121 unit/L LAB CHEMISTRY METHOD 07/29/2025 8:24 PM EDT [facility] Blood Venous blood specimen / Unknown Venipuncture / Unknown 07/29/2025 5:08 PM EDT 07/29/2025 5:46 PM EDT us Jean Claude Reynoso MD LAB BLOOD ORDERABLES Final Result [facility] [address] [place] [address], * XR Chest 2 Views (07/29/2025 3:12 PM EDT) Only the most recent of4 resultswithin the time period is included. Anatomical Region Laterality Modality Body Radiographic Lali [...] Signed Date: 07/29/2025 16:16 ET Workstation ID: [id number] Transcribed By: Self Edit Transcribed Date: 07/29/2025 [...] Signed Date: 07/29/2025 16:16 ET Workstation ID: [id number] Transcribed By: Self Edit Transcribed Date: 07/29/2025 16:15 ET Jean Claude Reynoso MD IMG XR PROCEDURES Final Res ult * (ABNORMAL) POCT Glucose, blood (07/29/2025 2:58 PM EDT) Only the most recent of2 resultswithin the time period is included. Glucose POCT 111(H) 70 - 100 mg/dL 07/29/2025 2:59 PM EDT [facility] ([facility]) [facility] Blood Capillary blood specimen / Unknown 07/29/2025 2:58 PM EDT 07/29/2025 3:00 PM EDT us Generic Provider Poct LAB POINT OF CARE TEST DOCKED DEVICE UNSOLICITED RESULTS Final Result [facility] [address] [place] [address], * [id number], RSV, Influenza A and B qualitative RT-PCR (07/29/2025 2:55 PM EDT) Influenza A PCR Not Detected Not Detected LAB MICROBIOLOGY METHOD 07/29/2025 4:07 PM EDT [facility] Influenza B PCR Not Detected Not Detected LAB MICROBIOLOGY METHOD 07/29/2025 4:07 PM EDT [facility] RSV PCR Not Detected Not Detected LAB MICROBIOLOGY METHOD 07/29/2025 4:07 PM EDT [facility] SARS COV-2 Not Detected Not Detected LAB MICROBIOLOGY METHOD 07/29/2025 4:07 PM EDT [facility] Swab Both anterior nares / Unknown Non-blood Collection / Unknown 07/29/2025 2:55 PM EDT 07/29/2025 3:22 PM EDT Narrative [facility] - 07/29/2025 4:07 PM EDT Disclaimer: Testing was performed using the [employer] GeneXpert Xpress SARS-CoV-2 _Flu_RSV PLUS PCR assay. [...] for Healthcare providers can be found at https://www.fda.gov/media/322524/download. Fact sheet for Healthcare patients can be found at https://www.fda.gov/media/832560/download. Jean Claude Reynoso MD LAB MICROBIOLOGY - GENERAL ORDERABLES Final Result Performing Organization Address [facility] Co de Phone Number [facility] [address] [place] [address], * Thyroid stimulating hormone with reflex to free t4 and free t3 (TSH Reflex) (07/16/2025 12:34 PM EDT) Only the most recent of2 resultswithin the time period is included. [facility] TSH 0.66 0.40 - 4.00 mcIU/mL LAB CHEMISTRY METHOD 07/16/2025 2:10 PM EDT [facility] Blood Venous blood specimen / Unknown Venipuncture / Unknown 07/16/2025 12:34 PM EDT 07/16/2025 12:56 PM EDT Juve PAIZ LAB BLOOD ORDERABLES Joyce l Result Performing Organization Address [facility] Co de Phone Number [facility] [address] [place] [address], * Anti-Xa - Every 6 Hours (07/12/2025 10:00 AM EDT) Only the most recent of5 resultswithin the time period is included. Pathologist [facility] Heparin Anti-Xa 0.48 0.30 - 0.70 I Unit/mL LAB COAGULATION METHOD 07/12/2025 10:47 AM EDT [facility] Blood Venous blood specimen / Unknown Venipuncture / Unknown 07/12/2025 10:00 AM EDT 07/12/2025 10:33 AM EDT Narrative [facility] - 07/12/2025 10:47 AM EDT Therapeutic range listed is for Unfractionated Heparin. LMW Heparin therapeutic range: 0.50-1.20 IU/mL us Jarod Ramos MD LAB BLOOD ORDERABLES Final Resul t [facility] [address] [place] [address], [place] [phone] * TRANSTHORACIC ECHOCARDIOGRAM (TTE) COMPLETE W/ CONTRAST (07/12/2025 8:27 AM EDT) Left Atrium Minor Montgomery 4.3 cm CV PACS Left Atrium Major Montgomery 5.0 cm CV PACS LA Area Sys (A2C) 13 cm2 CV PACS LA Area Sys (A4C) 15 cm2 CV PACS LA Volume (BP) 39 mL CV PACS Aortic Sinus Valsalva 3.1 cm CV PACS LVOT Diameter 1.7 cm CV PACS LVOT Mean Eleno 0.8 m/s CV PACS LVOT Mean Grad 3 mmHg CV PACS LVOT Peak VTI 21.6 cm CV PACS LVOT Peak Eleno 1.1 m/s CV PACS LVOT Peak Gradient 5 mmHg CV PACS MV E' Tissue Velocity Lateral 9 cm/s CV PACS MV E' Tissue Velocity Septal 9 cm/s CV PACS LVOT Area 2.3 cm2 CV PACS LVOT Stroke Volume 49 mL CV PACS MV Deceleration Rice 5.7 m/s2 CV PACS E Wave Deceleration Time 181 119 - 242 ms CV PACS MV PHT 53 ms CV PACS MV Peak A Eleno 0.99 m/s CV PACS MV Peak E Eleno 1.02 m/s CV PACS MV Area PHT 4.2 cm2 CV PACS RV S' 14 cm/s CV PACS TAPSE 24 mm CV PACS TR Peak Velocity 2.94 m/s CV PACS TR Peak Gradient 35 mmHg CV PACS E/E' Ratio Septal 11 CV PACS E/E' Ratio Averaged 11 CV PACS LVOT Stroke Index 30 mL/m2 CV PACS LVOT flow 181 mL/s CV PACS E/A Ratio 1.0 CV PACS E/E' Ratio Lateral 11 CV PACS LA Volume Index (BP) 24 mL/m2 CV PACS BSA 1.62 m2 CV PACS Anatomical Region Laterality Modality Ultrasound Narrative 07/12/2025 11:13 AM EDT Left ventricle cavity size is normal. Wall thickness is normal. Systolic function is normal with an ejection fraction of 55-60%. There are no regional LV wall motion abnormalities No hemodynamically significant valvular dysfunction There is no prior study available for comparison Left Ventricle Left ventricle cavity size is normal. Wall thickness is normal. Systolic function is normal with an ejection fraction of 55-60%. There are no regional LV wall motion abnormalities. There is age appropriate left ventricular diastolic function. Right Ventricle Right ventricle cavity appears normal. Systolic function is normal. Left Atrium Left atrium cavity size is normal. Right Atrium Right atrium cavity is normal. IVC/SVC Inferior vena cava structure is normal. Mitral Valve The leaflets are mildly thickened. There is trace regurgitation. There is no evidence of mitral valve stenosis. Tricuspid Valve The leaflets exhibit normal excursion. There is mild regurgitation. There is no evidence of tricuspid valve stenosis. Aortic Valve Number of aortic valve cusps cannot be determined. There is no regurgitation or stenosis. Pulmonic Valve The pulmonic valve was not well visualized. There is no regurgitation or stenosis. Ascending Aorta The aorta appears normal in size. Pericardium Pericardium appears normal. There is no pericardial effusion. Study Details Overall the study quality was technically difficult. Definity contrast was given to enhance imaging. Jordan Lyons MD CV ECHO PROCEDURES Final Result * Lavender tube (07/12/2025 4:18 AM EDT) Extra Tube Hold for add-ons. 07/12/2025 6:01 AM EDT [facility] Comment:Auto resulted. Blood Venous blood specimen / Unknown Venipuncture / Unknown 07/12/2025 4:18 AM EDT 07/12/2025 4:30 AM EDT Dayana Robbins MD LAB BLOOD ORDERABLES Final Res ult [facility] [address] [place] [address], [place] [phone] * (ABNORMAL) Urinalysis with reflex microscopic (07/12/2025 2:35 AM EDT) Specific Virgil Urine 1.042(H) 1.003 - 1.030 LAB URINALYSIS - AUTOMATED METHOD 07/12/2025 3:29 AM [facility] pH, Urine 7.0 5.0 - 8.0 pH LAB URINALYSIS - AUTOMATED METHOD 07/12/2025 3:29 AM [facility] Leukocytes, Urine Negative Negative LAB URINALYSIS - AUTOMATED METHOD 07/12/2025 3:29 AM [facility] Nitrite, Urine Negative Negative LAB URINALYSIS - AUTOMATED METHOD 07/12/2025 3:29 AM [facility] Protein, Urine Negative <=Trace mg/dL LAB URINALYSIS - AUTOMATED METHOD 07/12/2025 3:29 AM [facility] Glucose, Urine Negative Negative mg/dL LAB URINALYSIS - AUTOMATED METHOD 07/12/2025 3:29 AM [facility] Ketones, Urine Negative Negative mg/dL LAB URINALYSIS - AUTOMATED METHOD 07/12/2025 3:29 AM [facility] Urobilinogen, Urine 0.2 0.2 - 1.0 mg/dL LAB URINALYSIS - AUTOMATED METHOD 07/12/2025 3:29 AM [facility] Bilirubin, Urine Negative Negative LAB URINALYSIS - AUTOMATED METHOD 07/12/2025 3:29 AM [facility] Blood, Urine Negative Negative LAB URINALYSIS - AUTOMATED METHOD 07/12/2025 3:29 AM [facility] Urine Urine specimen obtained by clean catch procedure / Unknown Non-blood Collection / Unknown 07/12/2025 2:35 AM EDT 07/12/2025 2:55 AM EDT us Lance Flanagan MD LAB URINE ORDERABLES Final Resul t Performing Organization Address [facility]/ZIP Co de Phone Number [facility] [address] [place] [address], [place] [phone] * Hinton urine culture tube (07/12/2025 2:35 AM EDT) Only the most recent of2 resultswithin the time period is included. Extra Tube Hold for add-ons. 07/12/2025 4:01 AM EDT [facility] Comment:Auto resulted. Urine Urine specimen obtained by clean catch procedure / Unknown Non-blood Collection / Unknown 07/12/2025 2:35 AM EDT 07/12/2025 2:56 AM EDT Dayana Robbins MD LAB URINE ORDERABLES Final Res ult Performing Organization Address [facility]/ZIP Co de Phone Number [facility] [address] [place] [address], [place] [phone] * (ABNORMAL) Drug abuse screen 8a panel, urine (07/12/2025 2:35 AM EDT) [facility] Amphetamine Screen, Ur Negative Negative LAB CHEMISTRY METHOD 5 3:33 AM EDT [facility] Comment:Certain OTC medicati ons containing ephedrine, phenylephrine, pseudoephedrine and phenylpropanolamine can cause false positive results. Barbiturate Screen, Ur Negative Negative LAB CHEMISTRY METHOD 5 3:33 AM EDT [facility] Benzodiazepine Screen, Ur Negative Negative LAB CHEMISTRY METHOD 5 3:33 AM EDT [facility] Cocaine Screen, Ur Negative Negative LAB CHEMISTRY METHOD 5 3:33 AM EDT [facility] Opiate Screen, Ur Negative Negative LAB CHEMISTRY METHOD 5 3:33 AM EDT [facility] Cannabinoid (THC) Screen, Ur Positive(A ) Negative LAB CHEMISTRY METHOD 3:33 AM EDT [facility] Comment:Specimens from patie nts taking pantoprazole sodium (Protonix) have been shown to produce false positive results. Oxycodone Screen, Ur Negative Negative LAB CHEMISTRY METHOD 5 3:33 AM EDT [facility] Fentanyl, Ur Negative Negative LAB CHEMISTRY METHOD 5 3:33 AM EDT [facility] Urine Urine specimen obtained by clean catch procedure / Unknown Non-blood Collection / Unknown 07/12/2025 2:35 AM EDT 07/12/2025 2:55 AM EDT Narrative [facility] - 07/12/2025 3:33 AM EDT Assay cutoffs: Amphetamines 1000 ng/mL Barbiturates 200 ng/mL Benzodiazepines 200 ng/mL Cocaine 300 ng/mL Fentanyl 1 ng/mL Opiates 300 ng/mL Oxycodone 100 ng/mL THC 50 ng/mL Semi-quantitative assay for screening purposes only. Unconfirmed screening result should not be used for non-medical purposes. *ALTERNATE METHOD CONFIRMATION DONE UPON REQUEST ONLY* us Dayana Robbins MD LAB URINE ORDERABLES Final Res ult [facility] [address] [place] [address], [place] [phone] * Yellow urine no additive (07/12/2025 2:35 AM EDT) Extra Tube Hold for add-ons. 07/12/2025 4:01 AM EDT [facility] Comment:Auto resulted. Urine Urine specimen obtained by clean catch procedure / Unknown Non-blood Collection / Unknown 07/12/2025 2:35 AM EDT 07/12/2025 2:56 AM EDT Dayana Robbins MD LAB URINE ORDERABLES Final Res ult [facility] [address] [place] [address], [place] [phone] * ECG-Annotated (07/12/2025) Only the most recent of2 resultswithin the time period is included. us Provider Onbase MD ECG ORDERABLES Final Result * Activated Partial Thromboplastin Time - STAT (07/11/2025 4:51 PM EDT) aPTT 31.4 24.1 - 39.3 sec LAB COAGULATION METHOD 07/11/2025 5:24 PM EDT [facility] Blood Venous blood specimen / Unknown Venipuncture / Unknown 07/11/2025 4:51 PM EDT 07/11/2025 5:11 PM EDT us Lance Flanagan MD LAB BLOOD ORDERABLES Final Resul t Performing Organization Address [facility]/ZIP Co de Phone Number [facility] [address] [place] [address], [place] [phone] * Prothrombin Time with INR - STAT (07/11/2025 4:51 PM EDT) Protime 13.8 10.6 - 13.9 sec LAB COAGULATION METHOD 07/11/2025 5:24 PM EDT [facility] INR 1.1 LAB COAGULATION METHOD 07/11/2025 5:24 PM EDT [facility] Blood Venous blood specimen / Unknown Venipuncture / Unknown 07/11/2025 4:51 PM EDT 07/11/2025 5:11 PM EDT us Lance Flanagan MD LAB BLOOD ORDERABLES Final Resul t Performing Organization Address City/[facility]/ZIP Co de Phone Number [facility] [address] [place] [address], [place] [phone] * CT Head wo Contrast (07/11/2025 3:57 PM EDT) Only the most recent of2 resultswithin the time period is included. Anatomical Region Laterality Modality Head and Neck Computed Tomogra phy 07/11/2025 4:04 PM EDT Impressions 07/11/2025 4:06 PM EDT No acute intracranial findings. -------- FINAL REPORT -------- Dictated By: Mitchell Woods Dictated Date: 07/11/2025 16:04 ET Assigned Physician: Mitchell Woods Reviewed and Electronically Signed By: Mitchell Woods Signed Date: 07/11/2025 16:06 ET Workstation ID: [id number] Transcribed By: Self Edit Transcribed Date: 07/11/2025 16:04 ET Narrative 07/11/2025 4:06 PM EDT PROCEDURE: Noncontrast head CT. HISTORY: Dizziness, non-specific. COMPARISON: 07/08/2025. TECHNIQUE: Noncontrast head CT with coronal and sagittal reformats. Dose length product: 1083 mGy-cm. FINDINGS: BRAIN: No hemorrhage, edema, mass, or extra-axial fluid collection. No CT evidence of an acute large vessel infarct. Ventricles and sulci are age commensurate. Mild atherosclerotic calcifications of the carotid siphons. ORBITS: Normal. SINUSES/MASTOIDS: Normal. CALVARIUM: Normal. OTHER: The skull base soft tissues are normal. Procedure Note Mitchell Woods MD - 07/11/2025 PROCEDURE: Noncontrast head CT. HISTORY: Dizziness, non-specific. COMPARISON: 07/08/2025. TECHNIQUE: Noncontrast head CT with coronal and sagittal reformats. Dose length product: 1083 mGy-cm. FINDINGS: BRAIN: No hemorrhage, edema, mass, or extra-axial fluid collection. No CTevidence of an acute large vessel infarct. Ventricles and sulci are agecommensurate. Mild atherosclerotic calcifications of the carotidsiphons. ORBITS: Normal. SINUSES/MASTOIDS: Normal. CALVARIUM: Normal. OTHER: The skull base soft tissues are normal. IMPRESSION: No acute intracranial findings. -------- FINAL REPORT -------- Dictated By: Mitchell Woods Dictated Date: 07/11/2025 16:04 ET Assigned Physician: Mitchell Woods Reviewed and Electronically Signed By: Mitchell Woods Signed Date: 07/11/2025 16:06 ET Workstation ID: [id number] Transcribed By: Self Edit Transcribed Date: 07/11/2025 16:04 ET us Lance Flanagan MD IMG CT PROCEDURES Final Result * Lactate (07/11/2025 2:56 PM EDT) [facility] Lactate 1.5 0.4 - 2.0 mmol/L LAB CHEMISTRY METHOD 07/11/2025 3:36 PM EDT [facility] Blood Venous blood specimen / Unknown Venipuncture / Unknown 07/11/2025 2:56 PM EDT 07/11/2025 3:00 PM EDT us Lance Flanagan MD LAB BLOOD ORDERABLES Final Resul t [facility] [address] [place] [address], * (ABNORMAL) Venous blood gas (07/11/2025 2:56 PM EDT) pH, Bobby 7.43(H) 7.32 - 7.42 pH 07/11/2025 3:02 PM EDT [facility] pCO2, Bobby 40(L) 41 - 51 mmHg 07/11/2025 3:02 PM EDT [facility] pO2, Bobby 46(H) 25 - 40 mmHg 07/11/2025 3:02 PM EDT [facility] HCO3, Venous 26.0 22.0 - 26.0 mmol/L 07/11/2025 3:02 PM EDT [facility] O2 Sat, Bobby 77.5 % 07/11/2025 3:02 PM EDT [facility] Base Excess, Bobby 2.0 -2.0 - 2.0 mmol/L 07/11/2025 3:02 PM T [facility] Blood Venous blood specimen / Unknown Venipuncture / Unknown 07/11/2025 2:56 PM EDT 07/11/2025 2:59 PM EDT us Lance Flanagan MD LAB BLOOD ORDERABLES Final Resul t [facility] [address] [place] [address], [place] [phone] * (ABNORMAL) Comprehensive Metabolic Panel (CMP) (07/11/2025 2:56 PM EDT) Only the most recent of2 resultswithin the time period is included. Sodium 137 133 - 145 mmol/L LAB CHEMISTRY METHOD 07/11/2025 3:35 PM [facility] Potassium 3.8 3.5 - 5.5 mmol/L LAB CHEMISTRY METHOD 07/11/2025 3:35 PM [facility] Chloride 106 96 - 110 mmol/L LAB CHEMISTRY METHOD 07/11/2025 3:35 PM [facility] CO2 25 21 - 32 mmol/L LAB CHEMISTRY METHOD 07/11/2025 3:35 PM [facility] Anion Gap 6 3 - 11 LAB CHEMISTRY METHOD 07/11/2025 3:35 PM [facility] Glucose 156(H) 70 - 100 mg/dL LAB CHEMISTRY METHOD 07/11/2025 3:35 PM [facility] BUN 8 5 - 25 mg/dL LAB CHEMISTRY METHOD 07/11/2025 3:35 PM [facility] Creatinine 0.82 0.50 - 1.10 mg/dL LAB CHEMISTRY METHOD 07/11/2025 3:35 PM EDT [facility] eGFR 80 >=60 mL/min/1. 73m2 LAB CHEMISTRY METHOD 07/11/2025 3:35 PM EDT [facility] Comment:Calculation based on the Chronic Kidney Disease Epidemiology Collaboration (CKD-EPI) equation refit without adjustment for race. BUN/Creatinine Ratio 9.8 LAB CHEMISTRY METHOD 07/11/2025 3:35 PM EDT [facility] Calcium 8.9 8.5 - 10.5 mg/dL LAB CHEMISTRY METHOD 07/11/2025 3:35 PM T [facility] AST (SGOT) 21 10 - 42 unit/L LAB CHEMISTRY METHOD 07/11/2025 3:35 PM [facility] ALT (SGPT) 13 10 - 60 unit/L LAB CHEMISTRY METHOD 07/11/2025 3:35 PM [facility] Alkaline Phosphatase 103 42 - 121 unit/L LAB CHEMISTRY METHOD 07/11/2025 3:35 PM EDT [facility] Total Protein 6.0 6.0 - 8.0 g/dL LAB CHEMISTRY METHOD 07/11/2025 3:35 PM [facility] Albumin 2.4(L) 3.2 - 5.0 g/dL LAB CHEMISTRY METHOD 07/11/2025 3:[facility] Total Bilirubin 0.3 0.0 - 1.4 mg/dL LAB CHEMISTRY METHOD 07/11/2025 3:35 PM T [facility] Blood Venous blood specimen / Unknown Venipuncture / Unknown 07/11/2025 2:56 PM EDT 07/11/2025 3:35 PM EDT us Lance Flanagan MD LAB BLOOD ORDERABLES Final Resul t [facility] [address], [place] [address] [phone] * [place] [facility] 30-74 MINUTES (07/11/2025 2:09 PM EDT) Lance Martinez MD - 07/11/2025 2:09 PM EDT Lance Flanagan MD 07/11/2025 9:32 PM Critical Care Performed by: Lance Flanagan MD Authorized by: Lance Flanagan MD Critical care provider statement: Critical care time (minutes): 40 Total face to face critical care time (minutes): 40 Critical care time was exclusive of: Separately billable procedures and treating other patients Critical care was necessary to treat or prevent imminent or life-threatening deterioration of the following conditions: Shock Critical care was time spent personally by me on the following activities: Development of treatment plan with patient or surrogate, discussions with consultants, evaluation of patient's response to treatment, ordering and review of laboratory studies, ordering and review of radiographic studies, re-evaluation of patient's condition, review of old charts, ordering and performing treatments and interventions and examination of patient I assumed direction of critical care for this patient from another provider in my specialty: no Care discussed with: admitting provider Comments: Patient had NSTEMI requiring IV heparin, and IV diltiazem for A-fib with RVR to prevent catastrophic life-threatening decline in clinical status. us Lance Flanagan MD IN CLINIC/BEDSIDE ORDERABLES Fin al Result * (ABNORMAL) Complete blood count (07/09/2025 6:04 AM EDT) [facility] Signature WBC 8.9 4.8 - 10.8 K/mcL LAB HEMETOLOGY METHOD 07/09/2025 7:38 AM EDT [facility] RBC 3.30(L) 3.80 - 4.80 M/[facility] LAB HEMETOLOGY METHOD 07/09[facility]25 [facility] Hemoglobin 9.0(L) 11.5 - 16.0 g/dL LAB HEMETOLOGY METHOD 07/09/2025 7:38 AM [facility] Hematocrit 29.5(L) 35.0 - 47.0 % LAB HEMETOLOGY METHOD 07/09/2025 7:38 AM EDT [facility] MCV 89.7 79.0 - 98.0 FL LAB HEMETOLOGY METHOD 07/09/2025 7:38 AM EDT [facility] MCH 27.4 27.0 - 32.0 pcg LAB HEMETOLOGY METHOD 07/09/2025 7:38 AM EDT [facility] MCHC 30.5(L) 32.0 - 37.0 g/dL LAB HEMETOLOGY METHOD 07/09/2025 7:38 AM EDT [facility] RDW 15.8(H) 11.0 - 15.0 % LAB HEMETOLOGY METHOD 07/09/2025 7:38 AM EDT [facility] Platelets 366 130 - 400 K/mcL LAB HEMETOLOGY METHOD 07/09/2025 7:38 AM EDT [facility] MPV 9.3 7.0 - 11.0 FL LAB HEMETOLOGY METHOD 07/09/2025 7:38 AM EDT [facility] NRBC 0.0 <1.0 % LAB HEMETOLOGY METHOD 07/09/2025 7:38 AM EDT [facility] NRBC Absolute 0.00 <0.10 K/mcL LAB HEMETOLOGY METHOD 07/09/2025 7:38 AM [facility] Blood Venous blood specimen / Unknown Venipuncture / Unknown 07/09/2025 6:04 AM EDT 07/09/2025 6:26 AM EDT us Smitha PAIZ LAB BLOOD ORDERABLES Final R esult [facility] [address] [place] [address], * (ABNORMAL) Folate (07/09/2025 6:04 AM EDT) Folate >20.0(H) 2.8 - 17.0 ng/ml LAB CHEMISTRY METHOD 07/09/2025 8:08 AM EDT [facility] Blood Venous blood specimen / Unknown Venipuncture / Unknown 07/09/2025 6:04 AM EDT 07/09/2025 6:26 AM EDT us Vadim Ruiz MD LAB BLOOD ORDERABLES Fi nal Result Performing Organization Address City/[facility] Co de Phone Number [facility] [address] [place] [address], [place] [phone] * (ABNORMAL) Ferritin (07/09/2025 6:04 AM EDT) Pathologist [facility] Ferritin 261(H) 8 - 252 ng/mL LAB CHEMISTRY METHOD 07/09/2025 8:08 AM EDT [facility] Blood Venous blood specimen / Unknown Venipuncture / Unknown 07/09/2025 6:04 AM EDT 07/09/2025 6:26 AM EDT us Vadim Ruiz MD LAB BLOOD ORDERABLES Fi nal Result Performing Organization Address [facility] de Phone Number [facility] [address] [place] [address], [place] [phone] * (ABNORMAL) Vitamin B12 (07/09/2025 6:04 AM EDT) Vitamin B-12 1,520(H) 250 - 900 pcg/mL LAB CHEMISTRY METHOD 07/09/2025 9:57 AM EDT [facility] Blood Venous blood specimen / Unknown Venipuncture / Unknown 07/09/2025 6:04 AM EDT 07/09/2025 6:26 AM EDT us Vadim Ruiz MD LAB BLOOD ORDERABLES Fi nal Result Performing Organization Address City/[facility] Co de Phone Number [facility] [address] [place] [address], * CT Angio Head/Neck wo and/or w Contrast (07/08/2025 4:22 PM EDT) Anatomical Region Laterality Modality Head and Neck Computed Tomogra phy 07/08/2025 5:04 PM EDT Impressions 07/08/2025 5:12 PM EDT No large vessel occlusion. Mediastinal mass and adenopathy as seen previously. -------- FINAL REPORT -------- Dictated By: Leanna Bender Dictated Date: 07/08/2025 17:04 ET Assigned Physician: Leanna Bender Reviewed and Electronically Signed By: Leanna Bender Signed Date: 07/08/2025 17:12 ET Workstation ID: [id number] Transcribed By: Self Edit Transcribed Date: 07/08/2025 17:04 ET Narrative 07/08/2025 5:12 PM EDT PROCEDURE: CTA HEAD AND NECK INDICATION: Dizziness, non-specific TECHNIQUE: CTA of the head and neck with intravenous contrast. Multiplanar reformats. The examination was performed utilizing dose reduction techniques.3-D or MIP images were produced with postprocessing on an independent computer workstation. 90cc Omnipaque 370 injected. Scan was analyzed using [employer] based computer aided triage software. Total DLP: 3714 mGy/cm COMPARISON: No priors available. FINDINGS: Noncon Brain: Cerebral hemispheres are symmetric without evidence for mass, hemorrhage or CT evidence for acute territorial infarct. CTA Neck: There is a left-sided aortic arch. Great vessels are patent with conventional anatomy. Common carotid and internal carotid arteries are patent in the neck. Cervical vertebral arteries are patent. Mediastinal/right hilar mass and adenopathy. Adenopathy at the neck base.. CTA Head: Intracranial portions of the internal carotid arteries are patent. Proximal middle and anterior circulation is patent. Vertebrobasilar system is patent. Proximal meteorology instructor are patent. Major dural venous sinuses opacify normally with contrast. Extracranial structures are unremarkable. Degenerative changes in the bones. Procedure Note Leanna Bender MD - 07/08/2025 PROCEDURE: CTA HEAD AND NECK INDICATION: Dizziness, non-specific TECHNIQUE: CTA of the head and neck with intravenous contrast. Multiplanarreformats. The examination was performed utilizing dose reductiontechniques.3-D or MIP images were produced with postprocessing on anindependent computer workstation. 90cc Omnipaque 370 injected. Scan wasanalyzed using [employer] based computer aided triage software. Total DLP: 3714 mGy/cm COMPARISON: No priors available. FINDINGS: Noncon Brain: Cerebral hemispheres are symmetric without evidence for mass, hemorrhageor CT evidence for acute territorial infarct. CTA Neck: There is a left-sided aortic arch. Great vessels are patent withconventional anatomy. Common carotid and internal carotid arteries arepatent in the neck. Cervical vertebral arteries are patent. Mediastinal/right hilar mass and adenopathy. Adenopathy at the neckbase.. CTA Head: Intracranial portions of the internal carotid arteries are patent. Proximal middle and anterior circulation is patent. Vertebrobasilar system is patent. Proximal meteorology instructor are patent. Major dural venous sinuses opacify normally with contrast. Extracranial structures are unremarkable. Degenerative changes in thebones. IMPRESSION: No large vessel occlusion. Mediastinal mass and adenopathy as seen previously. -------- FINAL REPORT -------- Dictated By: Leanna Bender Dictated Date: 07/08/2025 17:04 ET Assigned Physician: Leanna Bender Reviewed and Electronically Signed By: Leanna Bender Signed Date: 07/08/2025 17:12 ET Workstation ID: [id number] Transcribed By: Self Edit Transcribed Date: 07/08/2025 17:04 ET us Jean Claude Reynoso MD [facility] CT PROCEDURES Final Res ult * (ABNORMAL) Vitamin B1 (07/08/2025 2:06 PM EDT) Vitamin B1 Whole Blood 37(L) 38 - 122 ug/L 07/13/2025 12:21 PM EDT [facility] Comment: This test was developed and the performance characteristics determined by [facility]. It has not been cleared or approved by the FDA. The laboratory is regulated under CLIA as qualified to perform high-complexity testing. This test is used for patient testing purposes. It should not be regarded as investigational or for research. Test performed at [facility], [address], [place] [address] Esha Leigh MD, PhD - [employer] Blood Venous blood specimen / Unknown Venipuncture / Unknown 07/08/2025 2:06 PM EDT 07/08/2025 2:13 PM EDT Jean Claude Reynoso MD LAB BLOOD ORDERABLES Final Result Performing Organization Address [facility]/ZIP Co de Phone Number [facility] [address] [place] [address] * Ammonia (07/08/2025 12:58 PM EDT) [facility] Ammonia 25 11 - 35 mcmol/L LAB CHEMISTRY METHOD 07/08/2025 3:32 PM EDT [facility] Blood Venous blood specimen / Unknown Venipuncture / Unknown 07/08/2025 12:58 PM EDT 07/08/2025 1:25 PM EDT Jean Claude Reynoso MD LAB BLOOD ORDERABLES Final Result Performing Organization Address [facility] de Phone Number [facility] [address] [place] [address], [place] [phone] * (ABNORMAL) Urinalysis with reflex microscopic and culture (07/08/2025 12:25 PM EDT) Pathologist [facility] Specific [place] Urine 1.015 1.003 - 1.030 LAB URINALYSIS - AUTOMATED METHOD 07/08/2025 12:53 PM EDT [facility] pH, Urine 7.0 5.0 - 8.0 pH LAB URINALYSIS - AUTOMATED METHOD 07/08/2025 12:53 PM EDT [facility] Leukocytes, Urine Trace(A) Negative LAB URINALYSIS - AUTOMATED METHOD 07/08/2025 12:53 PM EDT [facility] Nitrite, Urine Negative Negative LAB URINALYSIS - AUTOMATED METHOD 07/08/2025 12:53 PM [facility] Protein, Urine Negative <=Trace mg/dL LAB URINALYSIS - AUTOMATED METHOD 07/08/2025 12:53 PM [facility] Glucose, Urine Negative Negative mg/dL LAB URINALYSIS - AUTOMATED METHOD 07/08/2025 12:53 PM [facility] Ketones, Urine Trace(A) Negative mg/dL LAB URINALYSIS - AUTOMATED METHOD 07/08/2025 12:53 PM [facility] Urobilinogen , Urine 1.0 0.2 - 1.0 mg/dL LAB URINALYSIS - AUTOMATED METHOD 07/08/2025 12:53 PM [facility] Bilirubin, Urine Negative Negative LAB URINALYSIS - AUTOMATED METHOD 07/08/2025 12:53 PM [facility] Blood, Urine Negative Negative LAB URINALYSIS - AUTOMATED METHOD 07/08/2025 12:53 PM [facility] RBC, Urine 1.8 0 - 4 /HPF LAB URINALYSIS - AUTOMATED METHOD 07/08/2025 12:53 PM [facility] WBC, Urine 2.4 0 - 4 /HPF LAB URINALYSIS - AUTOMATED METHOD 07/08/2025 12:53 PM [facility] Squamous Epithelial, Urine 44 0 - 60 /LPF LAB URINALYSIS - AUTOMATED METHOD 07/08/2025 12:53 PM [facility] Non-Squamous Epithelial, Urine 2-5 Transitional epithelial cells. /LPF LAB URINALYSIS - AUTOMATED METHOD 07/08/2025 12:53 PM [facility] Bacteria, Urine Negative Negative /HPF LAB URINALYSIS - AUTOMATED METHOD 07/08/2025 12:53 PM [facility] Hyaline Casts, Urine 2.4 0 - 3 /LPF LAB URINALYSIS - AUTOMATED METHOD 07/08/2025 12:53 PM EDT [facility] Urine Urine specimen obtained by clean catch procedure / Unknown Non-blood Collection / Unknown 07/08/2025 12:25 PM EDT 07/08/2025 12:30 PM EDT Jean Claude Reynoso MD LAB URINE ORDERABLES Final Result Performing Organization Address [facility] de Phone Number [facility] [address] [place] [address], [place] [phone] * Culture urine (07/08/2025 12:25 PM EDT) Culture, Urine <10,000 CFU/mL gram positive cocci, insignificant count, no further workup 07/09/2025 9:18 AM EDT [facility] Urine Urine specimen obtained by clean catch procedure / Unknown Non-blood Collection / Unknown 07/08/2025 12:25 PM EDT 07/08/2025 12:53 PM EDT Jean Claude Reynoso MD LAB MICROBIOLOGY - GENERAL ORDERABLES Final Result Performing Organization Address [facility] de Phone Number [facility] [address] [place] [address], [place] [phone] * Free thyroxine with reflex to free triiodothyronine (07/08/2025 12:19 PM EDT) Free T4 1.39 0.70 - 1.80 ng/dL LAB CHEMISTRY METHOD 07/08/2025 9:03 PM EDT [facility] Blood Venous blood specimen / Unknown Venipuncture / Unknown 07/08/2025 12:19 PM EDT 07/08/2025 1:08 PM EDT Smitha PAIZ LAB BLOOD ORDERABLES Final R esult Performing Organization Address [facility]/ZIP Co de Phone Number [facility] [address] [place] [address], [place] [phone] * Lipid panel with reflex to direct LDL (07/08/2025 12:19 PM EDT) Cholesterol 149 0 - 200 mg/dL LAB CHEMISTRY METHOD 07/08/2025 7:50 PM EDT [facility] Triglycerides 111 0 - 150 mg/dL LAB CHEMISTRY METHOD 07/08/2025 7:50 PM EDT [facility] HDL 51 >=40 mg/dL LAB CHEMISTRY METHOD 07/08/2025 7:50 PM EDT [facility] LDL Calculated 76 0 - 100 mg/dL LAB CHEMISTRY METHOD 07/08/2025 7:50 PM EDT [facility] Comment:Estimated LDL Calcul ated using equation: Total cholesterol - HDL cholesterol - (Triglycerides/5) VLDL Cholesterol Stephen 22.2 mg/dL LAB CHEMISTRY METHOD 07/08/2025 7:50 PM EDT [facility] Non HDL Chol. (LDL+VLDL) 98 <145 mg/dL LAB CHEMISTRY METHOD 07/08/2025 7:50 PM EDT [facility] Chol/HDL Ratio 2.9 0.0 - 4.4 LAB CHEMISTRY METHOD 07/08/2025 7:50 PM EDT [facility] Blood Venous blood specimen / Unknown Venipuncture / Unknown 07/08/2025 12:19 PM EDT 07/08/2025 1:08 PM EDT Smitha PAIZ LAB BLOOD ORDERABLES Final R esult [facility] [address] [place] [address], [place] [phone] * Triiodothyronine free (07/08/2025 12:19 PM EDT) T3, Free 276 230 - 420 pcg/dL LAB CHEMISTRY METHOD 07/08/2025 9:27 PM EDT [facility] Blood Venous blood specimen / Unknown Venipuncture / Unknown 07/08/2025 12:19 PM EDT 07/08/2025 1:08 PM EDT Smitha PAIZ LAB BLOOD ORDERABLES Final R esult Performing Organization Address City/[facility] Co de Phone Number [facility] [address] [place] [address], [place] [phone] * (ABNORMAL) Hemoglobin A1c (07/08/2025 12:19 PM EDT) [facility] Hemoglobin A1C 6.6(H) <6.5 % LAB CHEMISTRY METHOD 07/08/2025 9:54 PM EDT [facility] Mean Bld Glu Estim. 143 mg/dL LAB CHEMISTRY METHOD 07/08/2025 9:54 PM EDT [facility] Blood Venous blood specimen / Unknown Venipuncture / Unknown 07/08/2025 12:19 PM EDT 07/08/2025 12:50 PM EDT us Smitha PAIZ LAB BLOOD ORDERABLES Final R esult Performing Organization Address City/[facility]/ZIP Co de Phone Number [facility] [address] [place] [address], [place] [phone] * ECG (06/28/2025 2:37 PM EDT) Jasmyn Lutz MD ECG ORDERABLES Final Result * [place] THORACENTESIS PLEURAL SPACE NEEDLE/CATH ASPIRATION W IMAGING GUIDANCE (06/14/2025 4:26 PM EDT) Narrative Tomasa Kenny MD - 06/14/2025 4:26 PM EDT Tomasa Kenny MD 06/14/2025 6:26 PM Thoracentesis Date/Time: 06/14/2025 4:26 PM Performed by: Tomasa Kenny MD Authorized by: Tomasa Kenny MD Consent: Consent obtained: Verbal Consent given by: Patient Risks, benefits, and alternatives were discussed: yes Risks discussed: Bleeding, infection, pain and pneumothorax [place] protocol: Procedure explained and questions answered to patient or proxy's satisfaction: yes Relevant documents present and verified: yes Test results available: yes Imaging studies available: yes Required blood products, implants, devices, and special equipment available: yes Site/side marked: yes Immediately prior to procedure, a time out was called: yes Patient identity confirmed: Verbally with patient Sedation: Sedation type: None Anesthesia: Anesthesia method: Local infiltration Local anesthetic: Lidocaine 1% WITH epi Procedure details: Preparation: Patient was prepped and draped in usual sterile fashion Location: R midscapular line Intercostal space: 8th Puncture method: [id number] catheter Ultrasound guidance: yes Indwelling catheter placed: no Needle gauge: 22 Catheter size: 8 Fr Number of attempts: 1 Drainage characteristics: Serosanguinous Post-procedure details: Post-procedure chest x-ray: pending. Procedure completion: Tolerated well, no immediate complications Comments: As expected small amount of drainage from pleural effusion 100 mL due to loculated and septated effusion. Stopped for no further fluid. us Tomasa Kenny MD IN CLINIC/BEDSIDE ORDERABL ES Final Result * Cell count with reflex differential, body fluid (06/14/2025 4:20 PM EDT) Only the most recent of2 resultswithin the time period is included. Body Fluid Total Nucleated Cells 713 /mm3 LAB HEMETOLOGY METHOD 06/14/2025 7:20 PM EDT [facility] Body Fluid RBC 9,000 /mm3 LAB HEMETOLOGY METHOD 06/14/2025 7:20 PM EDT [facility] Body Fluid Color Rodrigo 06/14/2025 7:20 PM EDT [facility] Body Fluid Clarity Cloudy 06/14/2025 7:20 PM EDT [facility] Body Fluid Source Pleural 06/14/2025 7:20 PM EDT [facility] Pleural Fluid Structure of right pleural cavity / Unknown Non-blood Collection / Unknown 06/14/2025 4:20 PM EDT 06/14/2025 5:47 PM EDT Narrative [facility] - 06/14/2025 7:20 PM EDT No reference ranges have been established for body fluids. Clinical correlation recommended. Tomasa Kenny MD LAB BODY FLUIDS AND STOOLS ORDERABLES Final Result Performing Organization Address [facility] de Phone Number [facility] [address] [place] [address], [place] [phone] * Culture body fluid with gram stain (06/14/2025 4:20 PM EDT) Only the most recent of2 resultswithin the time period is included. Fluid Culture No growth at 3 days LAB MICROBIOLOGY METHOD 06/17/2025 10:42 AM EDT [facility] Gram Stain Result No polymorphonuclear leukocytes, No epithelial cells, and No organisms noted 06/17/2025 10:42 AM EDT [facility] Pleural Fluid Structure of right pleural cavity / Unknown Non-blood Collection / Unknown 06/14/2025 4:20 PM EDT 06/14/2025 5:47 PM EDT Tomasa Kenny MD LAB MICROBIOLOGY - GENERAL ORDERABLES Final Result Performing Organization Address City/[facility]/ZIP Co de Phone Number [facility] [address] [place] [address], [place] [phone] * Differential body fluid (06/14/2025 4:20 PM EDT) Only the most recent of2 resultswithin the time period is included. Fluid Neutrophils % 6 % 06/14/2025 7:20 PM EDT [facility] Fluid Lymphocytes % 85 % 06/14/2025 7:20 PM EDT [facility] Fluid Monocytes/Macrop hages 9 % 06/14/2025 7:20 PM EDT [facility] Fluid Eosinophils % 0 % 06/14/2025 7:20 PM EDT [facility] Fluid Basophils % 0 % 06/14/2025 7:20 PM EDT [facility] Fluid Other Cells % 0 % 06/14/2025 7:20 PM EDT [facility] Pleural Fluid Structure of right pleural cavity / Unknown Non-blood Collection / Unknown 06/14/2025 4:20 PM EDT 06/14/2025 5:47 PM EDT [facility] - 06/14/2025 7:20 PM EDT No reference ranges have been established for body fluids. Clinical correlation recommended. us Tomasa Kenny MD LAB BODY FLUIDS AND STOOLS ORDERABLES Final Result [facility] [address] [place] [address], [place] [phone] * Protein, body fluid (06/14/2025 4:20 PM EDT) Only the most recent of2 resultswithin the time period is included. Protein, Fluid 3.7 See Comment g/dL LAB CHEMISTRY METHOD 06/14/2025 6:54 PM EDT [facility] Pleural Fluid Structure of right pleural cavity / Unknown Non-blood Collection / Unknown 06/14/2025 4:20 PM EDT 06/14/2025 5:47 PM EDT [facility] - 06/14/2025 6:54 PM EDT No reference ranges have been established for body fluids. Clinical correlation recommended. us Tomasa Kenny MD LAB BODY FLUIDS AND STOOLS ORDERABLES Final Result Performing Organization Address City/[facility] Co de Phone Number [facility] [address] [place] [address], [place] [phone] * Lactate dehydrogenase, body fluid (06/14/2025 4:20 PM EDT) Only the most recent of2 resultswithin the time period is included. LD, Fluid 533 See Comment unit/L LAB CHEMISTRY METHOD 06/14/2025 6:51 PM EDT [facility] Pleural Fluid Structure of right pleural cavity / Unknown Non-blood Collection / Unknown 06/14/2025 4:20 PM EDT 06/14/2025 5:47 PM EDT [facility] - 06/14/2025 6:51 PM EDT No reference ranges have been established for body fluids. Clinical correlation recommended. Tomasa Kenny MD LAB BODY FLUIDS AND STOOLS ORDERABLES Final Result Performing Organization Address [facility] de Phone Number [facility] [address] [place] [address], [place] [phone] * Glucose, body fluid (06/14/2025 4:20 PM EDT) Only the most recent of2 resultswithin the time period is included. Glucose, Fluid 78 See Comment mg/dL LAB CHEMISTRY METHOD 06/14/2025 6:51 PM EDT [facility] Pleural Fluid Structure of right pleural cavity / Unknown Non-blood Collection / Unknown 06/14/2025 4:20 PM EDT 06/14/2025 5:47 PM EDT [facility] - 06/14/2025 6:51 PM EDT No reference ranges have been established for body fluids. Clinical correlation recommended. us Tomasa Kenny MD LAB BODY FLUIDS AND STOOLS ORDERABLES Final Result Performing Organization Address [facility]/ZIP Co de Phone Number [facility] [address] [place] [address], * Non-gynecologic cytology (06/14/2025 4:20 PM EDT) Only the most recent of2 resultswithin the time period is included. Final Diagnosis A. Pleural Fluid, Right, Thoracentesis, (ThinPrep, cell block): Negative for malignancy. 06/16/2025 8:38 AM EDT [facility] Specimen A Adequacy Satisfactory for evaluation 06/16/2025 8:38 AM EDT [facility] Gross Description A. Pleural Cavity, Right, Pleural fluid: Received 35 ml of rodrigo fluid; 1 ThinPrep, 1 Cell block Cell block in formalin @10:30, total formalin fixation time 11 hours. 06/16/2025 8:38 AM EDT [facility] Disclaimer Unless otherwise specified, all tissue is 10% NB formalin fixed and paraffin embedded. Technical cytopathology services provided by [facility], at [address] [place] [id number] (CLIA # [id number]/Abdiel Matos MD, Shop [employer].) 06/16/2025 8:38 AM EDT [facility] Pleural Fluid Structure of right pleural cavity / Unknown Non-blood Collection / Unknown 06/14/2025 4:20 PM EDT 06/15/2025 10:17 AM EDT us Tomasa Kenny MD LAB CYTOLOGY ORDERABLES Fi nal Result [facility] [address] [place] [address], * Molecular intelligence tumor profiling (06/09/2025 10:55 AM EDT) Only the most recent of2 resultswithin the time period is included. Tissue Norman Gatica MD LAB MOLECULAR DIAGN OSTICS ORDERABLES Final Result * XR Chest 1 View (05/20/2025 3:51 PM EDT) Anatomical Region Laterality Modality Body Radiographic Lali ging 05/20/2025 4:43 PM EDT Impressions 05/20/2025 4:46 PM EDT FINDINGS/IMPRESSION: No pneumothorax status post bronchoscopy there is volume loss and small effusion on the right. Right chest wall port. Stable dense perihilar opacity. -------- FINAL REPORT -------- Dictated By: Leanna Bender Dictated Date: 05/20/2025 16:43 ET Assigned Physician: Leanna Bender Reviewed and Electronically Signed By: Leanna Bender Signed Date: 05/20/2025 16:46 ET Workstation ID: [id number] Transcribed By: Self Edit Transcribed Date: 05/20/2025 16:43 ET Narrative 05/20/2025 4:46 PM EDT XR CHEST 1 VIEW INDICATION: postoperative care TECHNIQUE: XR CHEST 1 VIEW COMPARISON: No priors available. Procedure Note Leanna Bender MD - 05/20/2025 XR CHEST 1 VIEW INDICATION: postoperative care TECHNIQUE: XR CHEST 1 VIEW COMPARISON: No priors available. IMPRESSION: FINDINGS/IMPRESSION: No pneumothorax status post bronchoscopy there isvolume loss and small effusion on the right. Right chest wall port.Stable dense perihilar opacity. -------- FINAL REPORT -------- Dictated By: Leanna Bender Dictated Date: 05/20/2025 16:43 ET Assigned Physician: Leanna Bender Reviewed and Electronically Signed By: Leanna Bender Signed Date: 05/20/2025 16:46 ET Workstation ID: [id number] Transcribed By: Self Edit Transcribed Date: 05/20/2025 16:43 ET Tomasa Kenny MD IMG XR PROCEDURES Final Re sult * Tissue exam (05/20/2025 2:15 PM EDT) Addendum A) Immunophenotypic results are similar to those seen in the previous right lower lobectomy adenocarcinoma ([id number]), which was confirmed as primary lung adenocarcinoma by NGS testing. IMMUNOHISTOLOGY: CK7: Expressed by neoplastic cells CK19: Expressed by neoplastic cells CK20: Negative GATA3: Negative ER: Negative SATB2: Negative CDX2: Negative WT1: Negative PAX8: Negative TTF-1: Negative NapsinA: Negative The immunohistochemistry stains were medically necessary and performed because the additional information was needed by the pathologist to determine immunophenotype of the neoplasm/malignancy. 5 11:08 AM [facility] Addendum electronically signed by Sudarshan Matos MD on 06/20/2025 at 11:08 AM Final Diagnosis 5 11:08 AM [facility] Comment A. Mediastinum, 7 lymph node: -METASTATIC ADENOCARCINOMA -See addendum for immunohistology B. Bronchus, Right mass: -ADENOCARCINOMA C. Bronchus, Right bronchial mass: -ADENOCARCINOMA 5 11:08 AM [facility] Gross Description A. Mediastinum, 7 lymph node: Labeled mediastinum, 7 lymph . Received in formalin are four irregular pink-white to red soft tissue fragments, each measuring approximately 0.2 cm in greatest dimension, which are wrapped in paper and submitted in toto in two cassettes, two pieces each, x 2 with six unstained slides between levels. B. Bronchus, Right mass: Labeled bronchus, right . Received in formalin with a Telfa pad is a 1.2 cm aggregate of irregular pink-red soft tissue fragments which is wrapped in paper and submitted in toto in two cassettes, multiple pieces each, x 2 with six unstained slides between levels. C. Bronchus, Right bronchial mass: Labeled bronchus, right . Received in formalin are four irregular pink-red soft tissue fragments, each measuring approximately 0.2 cm in greatest dimension, which are wrapped in paper and submitted in toto in two cassettes, two pieces each, x 2 with six unstained slides between levels. J[place]Y 5 11:08 AM EDT [facility] Intraoperative Consultation C. 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 They have not been cleared or approved by the U.S. Food and Drug Administration. The FDA has determined that such clearance or approval is not necessary. These tests are used for clinical purposes. They should not be regarded as investigational or for research. This laboratory is certified under the Clinical Laboratory Improvement Amendments of 1988 (CLIA) as qualified to perform high complexity clinical laboratory testing. (controls appropriate) Unless otherwise specified, all tissue is 10% NB formalin fixed and paraffin embedded. 5 11:08 AM EDT [facility] Lymph Node Mediastinal structure / Unknown 05/20/2025 2:15 PM EDT 05/20/2025 4:26 PM EDT Tissue specimen (specimen) Bronchial structure / Unknown 05/20/2025 2:35 PM EDT 05/20/2025 4:26 PM EDT Tissue specimen (specimen) Bronchial structure / Unknown 05/20/2025 2:44 PM EDT 05/20/2025 2:58 PM EDT Tomasa Kenny MD LAB PATHOLOGY ORDERABLES E dited Result - Final [facility] [address] [place] [address], * .PATHOLOGIST REVIEW FLOW CYTOMETRY (05/20/2025 1:47 PM EDT) Only the most recent of2 resultswithin the time period is included. Pathologist Interpretation Flow Cytometry Mediastinal lymph nodes, fine needle aspiration, flow cytometry: Diagnosis: No monotypic B cell population identified. Most of the lymphocytes are CD3-positive T cells including CD4-positive and CD8-positive subsets (CD4:CD8 ratio 2.6) without diagnostic phenotypic aberrancy. Clusters of atypical cells are seen in the corresponding cytospin slide. Comments: A limited flow cytometry panel is performed to assess the lymphocyte populations. B-cells are polyclonal and T-cells have no loss of T-cell antigens. The flow cytometry results do not support a diagnosis of a B- or T-cell lymphoproliferative disorder. However, it is noted that Hodgkin lymphoma, some large cell lymphomas, and non-hematopoietic tumors cannot be excluded by flow cytometry. Correlation with morphology (see separate [facility] Cyt[facility] Reports of the accompanying lymph node biopsy and FNA, [id number] and [id number])), clinical history, and other diagnostic information is recommended. Flow Differential (%) and Population Analysis: Lymphocytes: 56.9% T-cells (62% of lymphoid cells) show a CD4:CD8 ratio of 2.6 without overt phenotypic abnormality. NK-cells (2% of lymphoid cells) are unremarkable. Mature B-cells (31% of lymphoid cells) are polyclonal (kappa:lambda ratio of 1.2). Monocytes: 2.5% Monocytes are not evaluated due to limited antibody panel. Granulocytes: 37.3% Granulocytes are not evaluated due to limited antibody panel. CD45 Dim: 1.3% CD34+ cells are not detected. CD45 Ne.9% Non-hematopoietic cells, erythroids and cell debris. Plasma Cells: 0.1% CD34+: 0.0% Specimen Viability: 79.9 % Cell Yield: 2.53 Million Markers Performed: CD2, CD3, CD4, CD5, CD7, CD8, CD10, CD11c, CD19, CD20, CD23, CD34, CD38, CD45, CD56, [place], Lambda (17 Markers) 4:05 PM EDT [facility] Fine Needle Aspirate Mediastinal structure / Unknown 05/20/2025 1:47 PM EDT 05/23/2025 9:50 AM EDT Narrative [facility] - 05/23/2025 4:05 PM EDT The Accessioning Component and Technical Component Processing of this test was completed at [employer] , [address] [place] / [address] / [phone] / CLIA # [id number] / Accounts Receivable Clerk(s): Jeimy Leija MD. The Technical Component Analysis of this test was completed at [facility], [address] [place] [address], [place], [place] / [address] / [phone] / CLIA # [id number] / Accounts Receivable Clerk(s): Moody Smith M.D. The Professional Component of this test was completed by Mason Grayson M.D. at [facility], [facility] Department of Pathology, [place] [address] / / . This test was developed and its performance characteristics determined by the performing laboratory. It has not been cleared or approved by the U.S. Food and Drug Administration. The FDA has determined that such clearance or approval is not necessary. This test is used for clinical purposes. It should not be regarded as investigational or for research. This laboratory is certified under the Clinical Laboratory Improvement Amendments of 1988 (CLIA) as qualified to perform high complexity clinical testing. Tomasa Kenny MD LAB BLOOD ORDERABLES Final Result [facility] ([facility]) [facility] [address] [place] [address], * Leukemia, lymphoma evaluation by flow cytometry (05/20/2025 1:47 PM EDT) Only the most recent of2 resultswithin the time period is included. Scan Result See Scanned Result 05/23/2025 4:06 PM EDT EXTERNAL LAB (NON-INTERFAC ED) Fine Needle Aspirate Mediastinal structure / Unknown 05/20/2025 1:47 PM EDT 05/20/2025 4:07 PM EDT Narrative EXTERNAL LAB (NON-INTERFACED) - 05/23/2025 4:06 PM EDT Tomasa Kenny MD LAB MOLECULAR DIAGNOSTICS ORDERABLES Final Result Performing Organization Address [facility] Co de Phone Number EXTERNAL LAB (NON-INTERFACED) * Culture bronchial with gram stain (05/20/2025 1:24 PM EDT) Bronchial Culture No pathogens isolated. 05/23/2025 8:49 AM EDT [facility] Gram Stain Result Few Polymorphonuclear leukocytes 05/23/2025 8:49 AM EDT [facility] Gram Stain Result No organisms seen 05/23/2025 8:49 AM EDT [facility] Gram Stain Result No epithelial cells seen 05/23/2025 8:49 AM EDT [facility] Wash Bronchial structure / Unknown 05/20/2025 1:24 PM EDT 05/20/2025 3:39 PM EDT Tomasa Kenny MD LAB MICROBIOLOGY - GENERAL ORDERABLES Final Result Performing Organization Address [facility] Co de Phone Number [facility] [address] [place] [address], [place] [phone] * Concentration (05/20/2025 1:24 PM EDT) AFB Concentration Performed 025 3:05 PM EDT [facility] Wash Bronchial structure / Unknown 05/20/2025 1:24 PM EDT 05/20/2025 3:39 PM EDT Narrative [facility] - 07/04/2025 3:05 PM EDT Performed at: 01 - [facility] [id number] Daily Sales Audit Clerk: Sophia Vargas MD, Phone: [phone] Tomasa Kenny MD LAB BLOOD ORDERABLES Edite d Result - Final Performing Organization Address City/[facility]/ZIP Co de Phone Number [facility] * Culture, afb and smear with reflex to identification and susceptibility (05/20/2025 1:24 PM EDT) [facility] AFB Specimen Processing Concentration 07/04/2025 3:05 PM EDT [facility] Acid Fast Smear Negative 07/04/2025 3:05 PM EDT [facility] Acid Fast Culture Negative 07/04/2025 3:05 PM EDT [facility] Comment:No acid fast bacilli isolated after 6 weeks. Wash Bronchial structure / Unknown 05/20/2025 1:24 PM EDT 05/20/2025 3:39 PM EDT Narrative [facility] - 07/04/2025 3:05 PM EDT Performed at: 01 - [facility] [id number] Daily Sales Audit Clerk: Sophia Vargas MD, Phone: [phone] Tomasa Kenny MD LAB MICROBIOLOGY - GENERAL ORDERABLES Final Result [facility] * Acid fast bacilli stain (05/20/2025 1:24 PM EDT) [facility] Stain Result No Acid fast bacilli seen on direct smear (Fuchsin method, 1000x) No Acid Fast Bacilli seen on direct smear 05/20/2025 9:02 PM EDT [facility] Wash Bronchial structure / Unknown 05/20/2025 1:24 PM EDT 05/20/2025 3:39 PM EDT Tomasa Kenny MD LAB MICROBIOLOGY - GENERAL ORDERABLES Final Result [facility] [address] [place] [address], [place] [phone] * (ABNORMAL) Culture fungal, other (05/20/2025 1:24 PM EDT) [facility] Culture, Fungus Penicillium species(A) 06/20/2025 10:02 AM EDT [facility] Comment: The organism value for this result has been updated. These results have been appended to the previously preliminary verified report. Wash Bronchial structure / Unknown 05/20/2025 1:24 PM EDT 05/20/2025 3:39 PM EDT us Tomasa Kenny MD LAB MICROBIOLOGY - GENERAL ORDERABLES Final Result [facility] ([facility]) [facility] [address] [place] [address], [place] [phone] * TH AN ENDOTRACHEAL(NO CHARGE) (05/20/2025 1:18 PM EDT) Narrative Carlos A Jefferson CRNA - 05/20/2025 1:18 PM EDT Carlos A Jefferson CRNA 05/20/2025 1:20 PM General Information and Staff Patient location during procedure: OR Performed by: Carlos A Jefferson CRNA Authorized by: Eleazar Proctor MD Intubation Airway not difficult Urgency: elective Final Airway Details Successful airway: ETT Cuffed: yes Successful intubation technique: direct laryngoscopy Facilitating devices/methods: cricoid pressure and intubating stylet Endotracheal tube insertion site: oral Blade: Chayito Blade size: #3 ETT size (mm): 9.0 Cormack-Lehane Classification: grade IIa - partial view of glottis Placement verified by: chest auscultation, capnometry and palpation of cuff Measured from: lips ETT to lips (cm): 22 Number of attempts at approach: 1 Ventilation between attempts: none Number of other approaches attempted: 0Final airway type: endotracheal airway Indications and Patient Condition Indications for airway management: anesthesia Spontaneous ventilation: present Sedation level: Yes Preoxygenated: yes Soft Tissue Damage: No Dentition Unchanged: Yes Patient position: neutral MILS maintained throughout Mask difficulty assessment: 1 - vent by mask Start Time: 05/20/2025 1:13 PMStop Time: 05/20/2025 1:13 PM us Eleazar Proctor MD ANESTHESIA ORDERABLES Final Re sult * Triglycerides, body fluid (05/20/2025 12:57 PM EDT) Triglycerides , Fluid 25 See Comment mg/dL LAB CHEMISTRY METHOD 05/20/2025 2:24 PM EDT [facility] Pleural Fluid Structure of right pleural cavity / Unknown 05/20/2025 12:57 PM EDT 05/20/2025 1:29 PM EDT Narrative [facility] - 05/20/2025 2:24 PM EDT No reference ranges have been established for body fluids. Clinical correlation recommended. us Tomasa Kenny MD LAB BODY FLUIDS AND STOOLS ORDERABLES Final Result [facility] [address] [place] [address], [place] [phone] * CT Chest wo Contrast (05/19/2025 7:46 AM EDT) Anatomical Region Laterality Modality Body Computed Tomogra phy 05/19/2025 8:32 AM EDT Impressions 05/19/2025 8:45 AM EDT Unchanged right hilar mass centered at the right lower lobectomy suture line and extending into the right middle lobe bronchus and bronchus intermedius consistent with neoplasm. Increased subcarinal myles metastasis. -------- FINAL REPORT -------- Dictated By: LAURA VILLEGAS Dictated Date: 05/19/2025 08:32 ET Assigned Physician: LAURA VILLEGAS Reviewed and Electronically Signed By: LAURA VILLEGAS Signed Date: 05/19/2025 08:45 ET Workstation ID: [id number] Transcribed By: Self Edit Transcribed Date: 05/19/2025 08:33 ET Narrative 05/19/2025 8:45 AM EDT PROCEDURE: Chest CT INDICATION: Lung nodule, > 8mm; TECHNIQUE: Chest CT with intravenous administration of 90cc ISOVUE 370. Multi planar reformats were created and interpreted. The examination was performed utilizing dose reduction techniques. COMPARISON: PET/CT 04/08/2025 FINDINGS: LUNGS/PLEURA: Central airways are patent. Right lower lobectomy with unchanged right hilar mass centered around the suture line and extending into the right middle lobe bronchus and bronchus intermedius measuring approximately 4.9 x 6.3 cm. Decreased, small right pleural effusion. Calcified granuloma in the left lung. Centrilobular nodularity in the right middle lobe, most likely postobstructive pneumonitis and bronchiolitis. MEDIASTINUM: Thyroid gland is normal. Increased subcarinal lymph node measuring 16 mm short axis as compared to 11 mm on the prior exam. Other subcentimeter short axis mediastinal lymph nodes are similar compared to prior. No left hilar lymphadenopathy. Cardiac chambers are normal in size. No pericardial effusion. CHEST WALL: No axillary lymphadenopathy or superficial hematoma. Right chest wall Port-A-Cath terminates in the SVC. UPPER ABDOMEN:Upper abdominal structures are within normal limits. BONES: No suspicious lytic or blastic lesions. Scattered degenerative changes seen throughout the bones. Procedure Note Laura Villegas MD - 05/19/2025 PROCEDURE: Chest CT INDICATION: Lung nodule, > 8mm; TECHNIQUE: Chest CT with intravenous administration of 90cc ISOVUE 370.Multi planar reformats were created and interpreted. The examination wasperformed utilizing dose reduction techniques. COMPARISON: PET/CT 04/08/2025 FINDINGS: LUNGS/PLEURA: Central airways are patent. Right lower lobectomy withunchanged right hilar mass centered around the suture line and extendinginto the right middle lobe bronchus and bronchus intermedius measuringapproximately 4.9 x 6.3 cm. Decreased, small right pleural effusion.Calcified granuloma in the left lung. Centrilobular nodularity in theright middle lobe, most likely postobstructive pneumonitis andbronchiolitis. MEDIASTINUM: Thyroid gland is normal. Increased subcarinal lymph nodemeasuring 16 mm short axis as compared to 11 mm on the prior exam. Othersubcentimeter short axis mediastinal lymph nodes are similar compared toprior. No left hilar lymphadenopathy. Cardiac chambers are normal insize. No pericardial effusion. CHEST WALL: No axillary lymphadenopathy or superficial hematoma. Rightchest wall Port-A-Cath terminates in the SVC. UPPER ABDOMEN:Upper abdominal structures are within normal limits. BONES: No suspicious lytic or blastic lesions. Scattered degenerativechanges seen throughout the bones. IMPRESSION: Unchanged right hilar mass centered at the right lower lobectomy sutureline and extending into the right middle lobe bronchus and bronchusintermedius consistent with neoplasm. Increased subcarinal myles metastasis. -------- FINAL REPORT -------- Dictated By: LAURA VILLEGAS Dictated Date: 05/19/2025 08:32 ET Assigned Physician: LAURA VILLEGAS Reviewed and Electronically Signed By: LAURA VILLEGAS Signed Date: 05/19/2025 08:45 ET Workstation ID: [id number] Transcribed By: Self Edit Transcribed Date: 05/19/2025 08:33 ET us Tomasa Kenny MD IMG CT PROCEDURES Final Re sult * JOHANA SCREENING DIGITAL (11/02/2021 3:34 PM EST) Anatomical Region Laterality Modality Mammography 11/02/2021 2:51 PM EST Narrative 11/02/2021 3:[address] [facility] Diagnostic Imaging Department [address] [place] [address] Patient: PARTNER,REJI Zhang Mc/Age/Sex: 1960 - 61 - F Unit#: [id number] [facility]Ordering Site: [facility] Ordering Physician: IRENE GUERRA MD [facility] Screening Digital - 11/02/21 - 1509 INDICATION: SCREENING COMPARISON: 10/02/2020 TECHNIQUE: CC and MLO views of the breasts were obtained, using full field digital mammography with 3D tomosynthesis views in the MLO projection. Computer aided detection with the [employer] 7.2-H was employed. FINDINGS: The breasts contain scattered fibroglandular tissues. No suspicious masses, suspicious microcalcifications, or areas of architectural distortion are identified. There are no secondary signs of breast malignancy. IMPRESSION: No specific mammographic evidence of breast malignancy. Lack of an imaging correlate should not deter or delay biopsy of a clinically significant palpable finding. BI-RADS - Category 1: Negative 3341F, 7025F Annual screening mammography is recommended. Patient entered into a reminder system with a target date for the next mammogram. [id number]) , [id number] Dictating Physician: ROBIN ALEXIS MD Electronically Signed by: ROBIN ALEXIS MD Dic Date/Time: 11/02/21 153 Sign date/Time: 11/02/21 1534 Procedure Note Robin Alexis MD - 11/20/2022 [facility] Diagnostic Imaging Department [address] [place] [address] Patient: PARTNERREJI /Age/Sex: 1960 - 61 - F Unit#: [id number] Location/Status: [facility] Mnemonic/Ordering Site: [facility] Ordering Physician: IRENE GUERRA MD Johana Screening Digital - 11/02/21 - 1509 INDICATION: SCREENING COMPARISON: 10/02/2020 TECHNIQUE: CC and MLO views of the breasts were obtained, using full field digital mammography with 3D tomosynthesis views in the MLO projection. Computer aided detection with the [employer] 7.2-H was employed. FINDINGS: The breasts contain scattered fibroglandular tissues. No suspicious masses, suspicious microcalcifications, or areas ofarchitectural distortion are identified. There are no secondary signs of breastmalignancy. IMPRESSION: No specific mammographic evidence of breast malignancy. Lack of an imaging correlate should not deter or delay biopsy of aclinically significant palpable finding. BI-RADS - Category 1: Negative 3341F, 7025F Annual screening mammography is recommended. Patient entered into a reminder system with a target date for the next mammogram. [id number] / [id number]) , [id number] Dictating Physician: ROBIN ALEXIS MD Electronically Signed by: ROBIN ALEXIS MD Dic Date/Time: 11/02/211531 Sign date/Time: 11/02/21 153 Irene Guerra MD IMG BI PROCEDURES Final Result * Colonoscopy (05/14/2019) Colonoscopy no interpretation , abstracted Anatomical Region Laterality Modality Other Historical Provider HEALTH MAINTENANCE Final Result * Hepatitis C Screening (07/28/2018) Hepatitis C Screening abstracted Historical Provider HEALTH MAINTENANCE Final Result from Last 3 Months or Most Recently Relevant to Health Maintenance Insurance [facility] Advance Directives * Full Code - Default (Latest Code Status on File) Date Activated Date Inactivated Comments 07/29/2025 10:01 PM 08/03/2025 5:29 PM This is orde r is used when code status has not been discussed with the patient, or code status is otherwise unknown/unconfirmed To update the patient's code status, place a code status order. Do not modify or discontinue any currently active code status orders. * Full Code - Default Date Activated Date Inactivated Comments 07/11/2025 6:22 PM 07/13/2025 5:09 PM This is orde r is used when code status has not been discussed with the patient, or code status is otherwise unknown/unconfirmed To update the patient's code status, place a code status order. Do not modify or discontinue any currently active code status orders. * Full Code - Confirmed Date Activated Date Inactivated Comments 07/08/2025 7:25 PM 07/09/2025 3:06 PM This code stat us was ascertained in the following way: Code status discussion: discussion with patient To update the patient's code status, place a code status order. Do not modify or discontinue any currently active code status orders. * Full Code - Default Date Activated Date Inactivated Comments 05/20/2025 10:48 AM 05/20/2025 7:22 PM This is ord er is used when code status has not been discussed with the patient, or code status is otherwise unknown/unconfirmed To update the patient's code status, place a code status order. Do not modify or discontinue any currently active code status orders. * Full Code - Confirmed Date Activated Date Inactivated Comments 04/28/2025 7:59 AM 04/28/2025 12:52 PM This code s tatus was ascertained in the following way: Code status discussion: discussion with patient To update the patient's code status, place a code status order. Do not modify or discontinue any currently active code status orders. Care Teams Funeral Director'S Assistant Relationship Specialty Start Date End Date Awa Reyes NP [address] [address] PCP - General Nurse Practitioner 05/20/25
--- OUTSIDE RECORDS SUMMARY | 2025-08-05 08:58 | XMS_ITS ---
Author Name [facility] Organization Unknown History of Medication Use Medication Directions Dispensed Refills Start Date End Date Stat diazePAM (VALIUM) 2 mg tablet Take 1 tablet (2 mg total) by mouth 3 (three) times a day if needed (dizziness) for up to 5 days. Max Daily Amount: 6 mg 07/16/2025 active dilTIAZem CD (CARDIZEM CD) 120 mg 24 hr capsule Take 1 capsule (120 mg total) by mouth 1 (one) time each day. 07/14/2025 active apixaban (ELIQUIS) 5 mg tablet Take 1 tablet (5 mg total) by mouth 2 (two) times a day. 07/13/2025 active senna (SENOKOT) 8.6 mg tablet Take 2 tablets (17.2 mg total) by mouth 2 (two) times a day. 07/13/2025 active thiamine (VITAMIN B-1) 100 mg tablet Take 1 tablet (100 mg total) by mouth 1 (one) time each day. 07/10/2025 active multivitamin tablet Take 1 tablet by mouth 1 (one) time each day. 07/09/2025 active voriconazole (Vfend) 200 mg tablet Take 2 tablets (400 mg total) by mouth 2 (two) times a day for 2 doses. 06/22/2025 5 active voriconazole (Vfend) 50 mg tablet Take 5 tablets (250 mg total) by mouth 2 (two) times a day. 06/22/2025 active acetaminophen-codeine (TYLENOL #3) 300-30 mg per tablet Take 1 tablet by mouth every 6 (six) hours if needed for severe pain for up to 7 days. Max Daily Amount: 4 tablets 06/17/2025 5 active acetaminophen (TYLENOL) tablet 650 mg 650 mg, oral, Once as needed, mild pain, pain (1-3), Starting on Elsa 04/28/25 at 0759, For 1 dose, Recovery (only), pain (1-3) 04/28/2025 active dexAMETHasone (DECADRON) injection 4 mg 4 mg, intravenous, Once as needed, nausea and vomitting, Starting on Elsa 04/28/25 at 0759, For 1 dose, Recovery (only), Administer 2nd unless given in OR 04/28/2025 active diphenhydrAMINE (BENADRYL) injection 12.5 mg 12.5 mg, intravenous, Once as needed, itching, nausea, vomiting, Starting on Esla 04/28/25 at 0759, For 1 dose, Recovery (only) 04/28/2025 active HYDROmorphone (DILAUDID) injection 0.2 mg 0.2 mg, intravenous, Every 15 min PRN, moderate pain, Starting on Elsa 04/28/25 at 0759, For 4 doses, Recovery (only), For pain (4-6). DO NOT EXCEED 2MG 04/28/2025 active HYDROmorphone (DILAUDID) injection 0.5 mg 0.5 mg, intravenous, Every 15 min PRN, severe pain, Starting on Elsa 04/28/25 at 0759, For 4 doses, Recovery (only), For pain (7-10). 04/28/2025 active ipratropium-albuteroL (DUONEB) 0.5-2.5 mg/3 mL nebulizer solution 3 mL 3 mL, nebulization, Once as needed, wheezing, Starting on Elsa 04/28/25 at 0759, For 1 dose, Recovery (only) 04/28/2025 active meperidine (PF) (DEMEROL) 25 mg/mL injection 12.5 mg 12.5 mg, intravenous, Every 30 min PRN, shivering, Starting on Elsa 04/28/25 at 0759, For 2 doses, Recovery (only), Infuse over 5 minutes. 04/28/2025 active ondansetron (PF) (ZOFRAN) injection 4 mg 4 mg, intravenous, Once as needed, nausea, vomiting, Starting on Elsa 04/28/25 at 0759, For 1 dose, Recovery (only), Infuse over 2 minutes. Administer 1st unless given in OR then give dexamethasone 04/28/2025 active orphenadrine (NORFLEX) injection 30 mg 30 mg, intravenous, Once as needed, muscle spasms, Starting on Elsa 04/28/25 at 0759, For 1 dose, Recovery (only) 04/28/2025 active oxyCODONE (ROXICODONE) immediate release tablet 5 mg 5 mg, oral, Every 4 hours PRN, moderate pain, severe pain, for pain 4-6, Starting on Elsa 04/28/25 at 0759, For 2 doses, Recovery (only) 04/28/2025 active ipratropium-albuteroL (Combivent Respimat) 20-100 mcg/actuation inhaler Inhale 1 puff by mouth 4 (four) times a day. 04/26/2025 active furosemide (LASIX) 20 mg tablet Take 1 tablet (20 mg total) by mouth 1 (one) time each day for 5 days. 01/20/2025 active dexAMETHasone (DECADRON) 4 mg tablet 1 tablet twice daily on the day before and day after chemo 01/10/2025 active folic acid (FOLVITE) 1 mg tablet Take 1 tablet (1 mg total) by mouth 1 (one) time each day. 01/10/2025 active HYDROmorphone (DILAUDID) injection 0.5 mg 0.5 mg, Intravenous, Every 15 min PRN, severe pain (7-10), Starting on Elsa 07/08/24 at 1340, PACU/Phase 1FOR PACU USE ONLY. If unable to take by mouth. Do not exceed 2 mg. Administer IV push over 2-3 minutes. 07/08/2024 active ondansetron (ZOFRAN) injection 4 mg 4 mg, Intravenous, Once as needed, nausea, vomiting, Starting on Elsa 07/08/24 at 1340, For 1 dose, PACU/Phase 1Administer 1st unless given in OR, then administer dexamethasone 07/08/2024 active orphenadrine (NORFLEX) injection 30 mg 30 mg, Intravenous, Once as needed, muscle spasms, for musculoskeletal pain, to achieve pain scale less than or equal to 4, Starting on Elsa 07/08/24 at 1340, For 1 dose, PACU/Phase 1 07/08/2024 active clobetasol (TEMOVATE) 0.05 % cream Apply topically 2 (two) times a day. 03/26/2024 active rosuvastatin (CRESTOR) tablet 5 mg Take 1 tablet (5 mg total) by mouth daily. 08/08/2023 active betamethasone, augmented, (DIPROLENE-AF) 0.05 % cream APPLY SPARINGLY TO AFFECTED AREA TWICE DAILY NEEDED FOR PSORIASIS 06/26/2021 active buPROPion XL (WELLBUTRIN XL) 150 mg 24 hr tablet Take 1 tablet (150 mg total) by mouth 1 (one) time each day. Do not crush, chew, or split. active buPROPion XL (WELLBUTRIN XL) 150 mg 24 hr tablet Take 2 tablets (300 mg total) by mouth 1 (one) time each day. Do not crush, chew, or split. active hydrOXYzine HCL (ATARAX) 25 mg tablet Take 1 tablet (25 mg total) by mouth 3 (three) times a day if needed. active imipramine (TOFRANIL) 25 mg tablet Take 1 tablet (25 mg total) by mouth 3 (three) times a day. active methylphenidate (RITALIN) 10 mg tablet Take 10 mg by mouth 2 times daily. active methylphenidate (RITALIN) 10 MG tablet Take 1 tablet (10 mg total) by mouth 3 (three) times a day. active rosuvastatin (CRESTOR) 5 mg tablet Take 1 tablet (5 mg total) by mouth 1 (one) time each day. active trazodone HCl (TRAZODONE ORAL) Take 50 mg by mouth 1 (one) time each day in the evening. active trazodone HCl (TRAZODONE ORAL) Take 100 mg by mouth 1 (one) time each day in the evening. active Allergies Allergen Reaction Severity Comment Documented Date Source Statu s ASPIRIN GI INTOLERANCE 10/04/2024 [facility] act maura SULFA (SULFONAMIDE ANTIBIOTICS) HIVES 09/17/2023 [facility] active SULFATE 11/04/2018 [facility] active SULFA ANTIBIOTICS RASH [facility] Problems Problem Status Onset Date Problem Type Date of Resolution Source Atrial flutter with rapid ventricular response (CMS/HCC V24, CMS/HCC V28) active 2025-07-11 ProblemAct [facility] Osteoarthritis of lumbar spine active 2019-06-12 ProblemAct [facility] B12 deficiency active 2025-01-10 ProblemAct [facility] Lung mass active 2025-05-17 ProblemAct [facility] Pleural effusion, right active 2025-01-20 ProblemAct [facility] Primary cancer of right lower lobe of lung ([facility] V24, [facility] V28) active 2023-09-18 ProblemAct [facility] Lymphoma of kidney ([facility] V24, [facility] V28) active 2020-03-09 ProblemAct [facility] Narcolepsy due to underlying condition without cataplexy active 2018-06-05 ProblemAct [facility] Anxiety active 2018-06-05 ProblemAct [facility] Primary cancer of right upper lobe of lung ([facility] V24, [facility] V28) active 2023-12-12 ProblemAct [facility] Postprocedural pulmonary air leak active 2024-10-31 ProblemAct [facility] N Psoriasis active 2018-06-05 ProblemAct [facility] Small cell B-cell lymphoma ([facility] V24, [facility] V28) active 2018-11-05 ProblemAct [facility] 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-11-04 ProblemAct [facility] Weight loss active 2024-01-02 ProblemAct [facility] NEERU Hypomagnesemia active 2025-03-04 ProblemAct [facility] Primary cancer of right lower lobe of lung active 2023-12-12 ProblemAct [facility] Psoriasis active 2023-12-12 ProblemAct [facility] N 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-11-04 ProblemAct [facility] Lung nodule active 2018-11-04 ProblemAct [facility] Pain active EncounterDiagnosisAct [facility] Immunizations Vaccine Date Source Lot Number Status Influenza Quadravalent, MDCK , 0.5ml, preservative free (Flucelvax) 6mo and older 01/28/2020 [facility] [id number] completed Tdap Tetanus diptheria acell ular pertussis (Boostrix; Adacel) 7yo and older 12/07/2018 [facility] [id number] completed Influenza Quadravalent, MDCK , 0.5ml, preservative free (Flucelvax) 6mo and older 09/18/2018 [facility] [id number] completed Pneumococcal polysaccharide 23 valent (Pneumovax 23) 2yo and older 09/18/2018 [facility] [id number] com pleted Encounters Encounter Type Encounter Reason Primary Diagnosis Location Date Ambulatory Solitary pulmonary nodule Solitary pulmonary nodule [facility] 04/28/2025 Ambulatory Pain, unspecified Pain, unspecified [facility] 07/08/2024 Care Team Organization Name Specialty Phone Email Start Date End Da te [facility] Awa Reyes DATA ANALYTICS CHIEF SCIENTIST Primary Care 08/05/2025 [facility] PHYSICIAN Primary Care 04/28/2025 [facility] NO PHYSICIAN Primary Care 04/28/2025 [facility] 03/26/2024 [facility] MAGGY Primary Care 03/21/2024 06/14/2025 [facility] 03/19/2024
--- OUTSIDE RECORDS SUMMARY | 2025-08-05 08:58 | XMS_ITS | Clinical Summary ---
Author Organization [facility] Address [facility] [address] [place] [phone] Phone Care Team Providers Care University Teacher Name Role Phone Huang Dias MD Unavailable Xiomara Romero MD Primary Care Provide r Norman Gatica MD Unavailable [phone] Robert Gerardo MD Unavailable [phone] Joe Rousseau MD Unavailable [email or web address] Radha Spencer MD Unavailable [phone] Allergies Active Allergy Reactions Criticality Noted Date Comments Sulfa (Sulfonamide Antibiotics) 03/2018 Medications methylphenidate HCl (RITALIN) 10 MG tablet Take 10 mg by mouth 2 (two) times a day. Active imipramine (TOFRANIL) 25 MG tablet Take 25 mg by mouth 3 (three) times a day. Active flaxseed oil 1,000 mg Cap Take 1,000 mg by mouth daily. 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 No 08/16/2024 Education Answer Date Recorded Are you interested in help w ith more adult education (for example, completing high school, GED, job training, learning the Egyptian language, technical skills, or developing parenting skills)? No 08/16/2024 Are you concerned about learning? Not on file 08/16/2024 No 08/16/2024 Yes 08/16/2024 Food Answer Date Recorded Within the past 6 months we worried whether our food would run out before we got money to buy more. Never True 08/16/2024 Within the past 6 months the food we bought just didn't last and we didn't have enough money to get more. Never True Residential Stability Answer Date Recor ded What is your housing situation today? I have schuyler sing 08/16/2024 How many times have you move d in the past 12 months? Zero (I did not move) 08/16/2024 Paying for Meds Answer Date Recorded Do you have trouble paying for medicines? No 08/16/2024 Paying Utility Bills Answer Date Record ed Do you have trouble paying your heating or elect ricity bill? No 08/16/2024 Transportation Answer Date Recorded Has the lack of transportati on kept you from medical appointments or from getting medications? No 08/16/2024 Digital Access Answer Date Recorded No 04/26/2023 No 04/26/2023 Reliable internet access at home? Not on file 04/26/2023 Device with a working camera? Not on file Comments Unknown Sex and Gender Information Value Date Recorded Sex Assigned at Female 07/20/2024 3:11 PM EDT Legal Sex Female 1:25 PM EST Gender Identity Female 07/20/2024 3:11 PM EDT Sexual Orientation Straight 07/20/2024 3: 11 PM EDT Last Filed Vital Signs Vital Sign Reading Time Taken Comments Blood Pressure 125/67 08/16/2024 3:27 PM EDT Pulse 94 08/16/2024 3:27 PM EDT Temperature 35.8 C (96.5 F) 08/16/2024 3:24 PM EDT Respiratory Rate 16 08/16/2024 3:24 PM EDT Oxygen Saturation 90% 08/16/2024 3:31 PM EDT Inhaled Oxygen Concentration - - Weight 63.6 kg (140 lb 3.4 oz) 08/16/2024 3:24 P M EDT Height 158.2 cm (5' 2.28 ) 08/16/2024 3:24 PM ED T Body Mass Index 25.41 08/16/2024 3:24 PM EDT Plan of Treatment Upcoming Encounters Date Type Department Care Team (Late st Contact Info) Description 08/05/2025 5:00 PM EDT Office Visit [facility] [place] [address] [place] [address], [address] [place] [address] Jose L White MD, PhD [address] [place] [address] [email or web address] Health Maintenance Due Date Last Done Comments DEPRESSION SCREENING 1973 SMOKING Hx and SMOKELESS TOBACCO SCREENING 1974 HEPATITIS C SCREENING 1979 HIV ONE-TIME SCREENING (18-65 YEARS) 1979 ZOSTER VACCINES (1 of 2) 1980 PAP SMEAR 1982 SCREENING FOR DIABETES 1996 MAMMOGRAM 2001 COLOGUARD 2006 COLONOSCOPY 2006 COLORECTAL CANCER SCREENING 2006 FIT TEST 2006 FOBT 2006 SIGMOIDOSCOPY 2006 VIRTUAL COLONOSCOPY 2006 PNEUMOCOCCAL VACCINES (50+ years) (2 of 2 - PCV) 09/18/2019 09/18/2018 RSV VACCINE (1 - Risk 60-74 years 1-dose series) 2021 LIPID PANEL 01/28/2025 01/28/2020 INFLUENZA VACCINE (#1) 2025 , 01/28/2020, 09/18/2018 COVID-19 VACCINE ( season) 2025 09/04/2023, 06/13/2022, 01/24/2021, Additional history exists Adult Td,Tdap Booster 12/07/2028 12/07/2018 HEPATITIS A VACCINES Aged Out No long er eligible based on patient's age to complete this topic HIB VACCINES Aged Out No longer eligi ble based on patient's age to complete this topic MENINGOCOCCAL VACCINES (ACWY) Aged Out No longer eligible based on patient's age to complete this topic MENINGOCOCCAL VACCINES (B) Aged Out N o longer eligible based on patient's age to complete this topic Medical Devices Not on file Procedures Procedure Name Priority Date/Time Associated Diagnosis Comments OUTSIDE IMAGING 06/14/2025 OUTSIDE LAB 06/09/2025 OUTSIDE IMAGING 05/19/2025 from Last 3 Months Results * Outside Imaging Report Only (06/14/2025) us Scanning Interface Provider IMG XR CHEST Joyce l Result * Outside Lab (06/09/2025) us Scanning Interface Provider LAB BLOOD ORDERABLES Final Result * Outside Imaging Report Only (05/19/2025) us Scanning Interface Provider IMG XR CHEST Joyce l Result from Last [address] [address] [employer] [facility] [place] [address] [place] [address] [employer] PPO [place] [employer] [facility] PPO [facility] [employer] [facility] PPO [facility] [employer] [facility] PPO Care Teams University Teacher Relationship Specialty Start Date End Date Xiomara Romero MD [address] [place] [address] PCP - General Internal Medicine 07/20/24 Huang Dias MD [address] [place] [phone] [email or web address] Primary Oncologist Hematology 10/29/18 Norman Gatica MD [address] [place] [phone] [email or web address] Medicine 08/16/24 Robert Gerardo MD [address] [place] [phone] [email or web address] 08/16/24 [place] [address] [email or web address] Pulmonary Disease 08/16/24 Radha Spencer MD [address] [place] [phone] Thoracic Surgery 09/21/24 Additional Source Comments The information contained in this document represents components of the legal health record. It is not the complete legal health record.[facility]
--- OUTSIDE RECORDS SUMMARY | 2025-08-05 08:58 | XMS_ITS ---
Author Organization [facility] Address [address] [place] [address] Phone Care Team Providers Care Fondant Machine Operator Name Role Phone Awa Reyes NP Primary Care Provider [phone] Active Problems Problem Noted Date Diagnosed Date Community acquired pneumonia 07/29/2025 Atrial flutter with rapid ve ntricular response (CMS/HCC V24, CMS/HCC V28) 07/11/2025 Lung mass 05/17/2025 Hypomagnesemia 03/04/2025 Pleural effusion, right 01/20/2025 B12 deficiency 01/10/2025 Postprocedural pulmonary air leak 10/31/2024 Postprocedural pulmonary air leak 10/11/2024 Assessment & Plan (10/31/2024 1:31 PM EST): Veronica frazier is a 64-year-old female who had [...] Assessment & Plan (10/11/2024 4:46 PM EST): Partner is a 64 y/o female with [...] discussed my conversation with the oncologist from [facility] who after reviewing everything with his pathologists [...] some further evaluation. I do agree with [facility] that getting a CT scan of the [...] & Plan (10/16/2024 9:18 PM EST): Ms. 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 Reese per patient Psoriasis 06/05/2018 Current Oncology Plans No current plan information found. Other Current Plans CYANOCOBALAMIN ( VITAMIN B-12 ) INJECTIONS ( MONTHLY MAINTENANCE )* Plan Start Date:01/10/2025 Plan Provider:Norman Gatica MD Linked Problems B12 deficiency Treatment Medications No medications scheduled. Past Plans Oncology Treatment Plan Name Start Date Discontinue Date Treatment Medications Discontinue Reason Plan Provider Cycles PEMEtrexed / CARBOplatin - Non-Small Cell Lung Cancer 5 04/13/2025 CARBOplatin (PARAPLATIN) chemo 250 mL IVPB (by AUC)PEMEtrexed (ALIMTA) chemo IVPB in 100 mL NS - Therapy Complete Norman jessica MD 4 of 4 cycles started Radiation Treatments * No radiation treatments are documented for this patient in [facility]. Treatments may have been administered in another system. Resolved Problems Problem Noted Date Diagnosed Date Resolved Date Ataxia 07/08/2025 07/09/2025 Solitary pulmonary nodule 10/04/2024 Assessment & Plan (10/05/2024 12:31 PM EST): Veronica Partner is a 64 y.o. female with history [...]
--- OUTSIDE RECORDS SUMMARY | 2025-08-05 08:59 | XMS_ITS | Encounter Summary ---
Author Organization [facility] Address [address] [place] [address] Care Team Providers Care Commercial Credit Reviewer Name Role Phone Awa Reyes NP Primary Care Provider [phone] Encounter Details Date Type Department Care Team (Late st Contact Info) Description 07/12/2025 Telephone [facility] Hematology Oncology [address] [place] [address] Molly Kline MA Social History Tobacco Use Types Packs/Day Years [...] before we got money to buy more. Patient declined 025 Within the past 12 months th e food we bought just didn't last and we didn't have money to get more. Patient declined 07/01 Dependent Care Answer Date Recorded Do you need help finding or paying for care for your loved ones. For example, child care centre director or elderly care for an older adult? [...] Safety Answer Date Record ed Physical Abuse 07/11/2025 Verbal Abuse 07/11/2025 Comments No Sex and Gender Information Value Date Recorded Sex Assigned at Female 10/14/2024 2:37 PM EST Legal Sex Female 2:41 AM EST Gender Identity Female 10/14/2024 2:37 PM EST Sexual Orientation Straight 03/25/2025 9: 21 AM EDT documented as of this encounter Progress Notes * Molly Kline MA - 07/12/2025 4:32 PM EDT Patient is admitted. Will cancel FOV tomorrow. CARYL So documented in this encounter Plan of Treatment Upcoming Encounters Date Type Department Care Team (Latest Contact Info) Description 08/10/2025 10:25 AM EDT Hospital Encounter [facility] [place] [address] [place] [phone] Tomasa Kenny MD [address] [place] [phone] 08/10/2025 10:25 AM EDT - 08/10/2025 12:50 PM EDT Surgery [facility] [place] [address] [place] [phone] Tomasa Kenny MD [address] [place] [address] [phone] FLEXIBLE/ RIGID BRONCHOSCOPY [94663 (CPT )] 08/12/2025 11:45 AM EDT Office Visit [facility] Hematology Oncology [address] [place] [phone] Norman Gatica MD [address] [place] [phone] 08/16/2025 3:30 PM EDT Office Visit Pulmonology - [place] [address] [facility] [address] [place] [phone] Tomasa Kenny MD [address] [place] [phone] 08/25/2025 8:15 AM EDT Appointment [facility] Xray [address] [place] [phone] 10/11/2025 3:30 PM EST Ancillary Procedure [facility] [address] [facility] [place] [address] [place] [phone] Scheduled Procedures Name Priority Associated Diagnoses Date/Ti me BRONCHOSCOPY Lung nodule 08/10/2025 10:25 AM EDT BRONCHOSCOPY NODULE 1 ROBOT Lung nodule 08/10/2025 10:25 AM EDT BRONCHOSCOPY NODULE 2 ROBOT Lung nodule 08/10/2025 10:[address] TRACHEOBRONCHIAL STENT Lung nodule 08/10/2025 10:25 AM EDT documented as of this encounter Visit Diagnoses Not on filedocumented in this encounter Additional Health Concerns Infection Onset Date Last Indicated Resolved Time Respiratory Rule-Out 07/29/2025 07/29/2025 025 4:07 PM EDT COVID-19 Rule-Out 07/29/2025 07/29/2025 07/29/2025 4:07 PM EDT documented as of this encounter Care Teams Commercial Credit Reviewer Relationship Specialty Start Date End Date Awa Reyes NP [facility] [address] [place] [phone] PCP - General Nurse Practitioner 05/20/25 documented as of this encounter
--- OUTSIDE RECORDS SUMMARY | 2025-08-05 08:59 | XMS_ITS | Encounter Summary ---
Author Organization [facility] Address [address] [place] [address] Care Team Providers Care Civil Estimator Name Role Phone Awa Reyes NP Primary Care Provider [phone] Encounter Details Date Type Department Care Team ([facility] st Contact Info) Description 08/02/2025 Telephone Infectious Disease - [place] [address] [facility] [address] [place] [address] Ayde Vela MA Social History Tobacco Use Types Packs/Day [...] for your loved ones. For example, child caregiver or elderly care for an older adult? [...] AM EDT documented as of this encounter Functional Status * Are you [...] Aure Paredes RN documented in this encounter Progress Notes * Ayde Vela MA - 08/02/2025 2:40 PM EDT Returned pt call, LVM * Primo Gee LPN - 08/02/2025 12:19 PM EDT Pt hoped to be contacted regarding 08/03 cancelled office visit. * Ayde Vela MA - 08/02/2025 11:24 AM EDT LVM for pt to call back to reschedule appt for 3-4 weeks from now due to current hospitalization documented in this encounter Plan of Treatment Upcoming Encounters Date Type Department Care Team (Latest Contact Info) Description 08/10/2025 10:25 AM EDT Hospital Encounter [facility] OR [address] [place] [phone] Tomasa Kenny MD [address] [place] [phone] 08/10/2025 10:25 AM EDT - 08/10/2025 12:50 PM EDT Surgery [facility] [address] [place] [address] Tomasa Kenny MD [address] [place] [address] FLEXIBLE/ RIGID BRONCHOSCOPY [[id number] (CPT )] 08/12/2025 11:45 AM EDT Office Visit [facility] Hematology Oncology [address] [place] [phone] Norman Gatica MD [address] [place] [phone] 08/16/2025 3:30 PM EDT Office Visit Pulmonology - [place] [address] [phone] Tomasa Kenny MD [address] [place] [address] 08/25/2025 8:15 AM EDT Appointment [facility] Xray [address] [place] [phone] 10/11/2025 3:30 PM EST Ancillary Procedure [facility] - [facility] [address] [place] [address] Scheduled Procedures Name Priority Associated Diagnoses Date/Ti me BRONCHOSCOPY Lung nodule 08/10/2025 10:25 AM EDT BRONCHOSCOPY NODULE 1 ROBOT Lung nodule 08/10/2025 10:25 AM EDT BRONCHOSCOPY NODULE 2 ROBOT Lung nodule 08/10/2025 10:[address] TRACHEOBRONCHIAL STENT Lung nodule 08/10/2025 10:25 AM EDT documented as of this encounter Visit Diagnoses Not on filedocumented in this encounter Care Teams Civil Estimator Relationship Specialty Start Date End Date Awa Reyes NP [address] [address] PCP - General Nurse Practitioner 05/20/25 documented as of this encounter
--- OUTSIDE RECORDS SUMMARY | 2025-08-05 08:59 | XMS_ITS | Encounter Summary ---
Author Organization [facility] Address [address] [place] [address] Care Team Providers Care Lead Software Qa Engineer Name Role Phone EricAwa RAISSA Primary Care Provider [phone] Reason for Visit * Reason Onset Date Comments Medication Problem 07/08/2025 Encounter Details Date Type Department Care Team (Late st Contact Info) Description 07/08/2025 Telephone Infectious Disease - [place] [address] [facility] [address] [place] [address] Jasmyn Lutz MD [address] [facility] [address] [place] [address] Social History Tobacco Use Types Packs/Day Years [...] your loved ones. For example, child care center assistant director or elderly care for an older [...] as of this encounter Progress Notes * Hortencia Zuniga RN - 07/08/2025 1:09 PM EDT LM for patient to return call. * Estefanicarol José Miguel - 07/08/2025 9:35 AM EDT Patient called to inform that the medication Voriconaezole- is making patient feel weird , blurry vision - unbalance. Can these symptoms be allergic reactions? Please advice . Patient is seeking for a call back documented in this encounter Plan of Treatment Upcoming Encounters Date Type Department Care Team (Latest Contact Info) Description 08/10/2025 10:25 AM EDT Hospital Encounter [facility] OR [address] [place] [phone] Tomasa Kenny MD [address] [place] [address] 08/10/2025 10:25 AM EDT - 08/10/2025 12:50 PM EDT Surgery [facility] OR [address] [place] [phone] Tomasa Kenny MD [address] [place] [phone] FLEXIBLE/ RIGID BRONCHOSCOPY [[id number] (CPT )] 08/12/2025 11:45 AM EDT Office Visit [facility] Hematology Oncology [address] [place] [phone] Norman Gatica MD [address] [place] [phone] 08/16/2025 3:30 PM EDT Office Visit Pulmonology - [place] [address] [phone] Tomasa Kenny MD [address] [place] [phone] 08/25/2025 8:15 AM EDT Appointment [facility] Xray [address] [place] [phone] 10/11/2025 3:30 PM EST Ancillary Procedure [facility] - [address] [place] [address] Scheduled Procedures Name Priority Associated Diagnoses Date/Ti [...] documented as of this encounter Care Teams Lead Software Qa Engineer Relationship Specialty Start Date End Date Awa Reyes NP [facility] MED[facility] [address] [place] [address] PCP - General Nurse Practitioner 05/20/25 documented as of this encounter
--- OUTSIDE RECORDS SUMMARY | 2025-08-05 08:59 | XMS_ITS | Patient Health Record ---
Author Organization Bear Gibbons III, MD Address [address] [place] [address] [place] [address] Care Team Providers Care Belt Maker Name Role Phone Kat Casper Primary Care Provider Bear Guaman [phone] Allergies Allergen (clinical drug ingredient) Drug/Non Drug Allergy documented on EMR Reaction Allergy Type Onset Date Status sulfacetamide Sulfacetamide Unknown Drug Allergy Active aspirin Aspirin nausea Drug Allergy Active Reason For Referral No Information Medications Medication SIG (Take, Route, Frequency, Duration) Notes Start Date End Date Status Methylphenidate HCl 10 MG 1 tablet Orall y Twice a day Active Imipramine HCl 25 MG 1 tablet at bedtime Orally three times a day Active Triazolam 0.25 MG 1 tablet at bedtime as needed Orally as needed Active traZODone HCl 50 MG 1 tablet at bedtime as needed Orally Once a day Active Flax Seed Oil 1000 MG as directed Orally Active Social History Tobacco Use: Social History Observation Description Date Details (start date - stop date) Former Smoker NA - NA Sex Assigned At : Social History Observation Description Sex Assigned At Female Tobacco Use/Smoking Question Answer Notes Patient is a former smoker How long has it been since you last smoked? 1-5 years Additional Findings: Tobacco Non-User Ex-cigaret te smoker Alcohol Screen Question Answer Notes Did you have a drink containing alcohol in the p ast year? No Points 0 Interpretation Negative Problems Problem Type SNOMED Code ICD Code Onset Dates Problem Status W/U Status Risk Notes Problem 6243093 Former smoker (Z87.891) Active confirmed She is highly motivated not to smoke and we elaborated a plan to prevent relapse in times of illness. Problem Bipolar disorder (80962366) Bipolar disorder, unspecified (F31.9) Active confirmed She is currently under control with this disorder. It does not appear that she will be noncompliant. 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 Without change. Problem Psoriasis (6524424) Psoriasis, unspecified (L40.9) Active confirmed Her psoriasis today is primarily on her fingers and hands and is mild and does not impair her daily living. 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 She has a spiculated lung lesion as well as a history of smoking. I believe she may need systemic therapy and will be referred to medical oncology at [facility]. A PET CT scan has been ordered at [facility] and is pending. Spiculated lesion will need to be evaluated. Problem 996274194 Lesion of lung (R91.1) Active confirmed Plan Of Treatment Pending Test Test Name Order Date PROFILE, FASTING (COMPREHENSIVE METABOLI C) 08/11/2020 PROFILE, FASTING (COMPREHENSIVE METABOLI C) 05/14/2023 PROFILE, RANDOM (COMPREHENSIVE METABOLIC ) 11/17/2020 PROFILE, RANDOM (COMPREHENSIVE METABOLIC ) 09/25/2020 PROFILE, RANDOM (COMPREHENSIVE METABOLIC ) 08/15/2022 PROFILE, RANDOM (COMPREHENSIVE METABOLIC ) 05/21/2022 PROFILE, RANDOM (COMPREHENSIVE METABOLIC ) 10/05/2021 PROFILE, RANDOM (COMPREHENSIVE METABOLIC ) 04/20/2021 LIPID PANEL 08/11/2020 LIPID PANEL 05/14/2023 LDH 11/17/2020 LDH 09/25/2020 LDH 08/15/2022 LDH 05/21/2022 LDH 05/14/2023 LDH 08/11/2020 LDH 10/05/2021 LDH 04/20/2021 CBC w DIFF 04/20/2021 CBC w DIFF 11/17/2020 CBC w DIFF 09/25/2020 CBC w DIFF 08/15/2022 CBC w DIFF 05/21/2022 CBC w DIFF 05/14/2023 CBC w DIFF 08/11/2020 CBC w DIFF 10/05/2021 SED RATE (ESR) 05/21/2022 SED RATE (ESR) 05/14/2023 SED RATE (ESR) 08/11/2020 SED RATE (ESR) 10/05/2021 SED RATE (ESR) 04/20/2021 SED RATE (ESR) 11/17/2020 SED RATE (ESR) 09/25/2020 BETA-2 MICROGLOBULIN, SERUM 05/21/2022 BETA-2 MICROGLOBULIN, SERUM 05/14/2023 CT ABD & PELVIS WITH CONTRAST 03/04/2022 CT ABD & PELVIS WITH CONTRAST 08/22/2022 CT ABD & PELVIS WITH CONTRAST 05/14/2023 CT ABD & PELVIS NO CONTRAST 08/15/2022 CT CHEST WITH CONTRAST 05/14/[address] SKULL TO THIGHS 07/11/2023 XR CHEST 2 VIEW PA & LAT 08/15/2022 XR CHEST 2 VIEW PA & LAT 03/01/2022 Insurance Providers Payer Name Payer Address Payer Phone Subscriber Number Group Number Insured Name Patient Relationship to Insured Coverage Start Date Coverage End Date [facility] [address] [place] [phone] [id number] Partner, Veronica Self - patient is the insured Medical (General) History Medical History History ICD Code narcolepsy bipolar disorder psoriasis anxiety MALT lymphoma overweight former smoker Surgical History Surgery Date(Month/Year) endoscopy 2010 bone marrow biopsy 2010 dental extractions
--- OUTSIDE RECORDS SUMMARY | 2025-08-05 08:59 | XMS_ITS | Encounter Summary ---
Author Organization [facility] Address [address] [place] [address] Care Team Providers Care Handicapped Teacher Name Role Phone Awa Reyes NP Primary Care Provider [phone] Encounter Details Date Type Department Care Team ([facility] st Contact Info) Description 08/02/2025 Telephone Infectious Disease - [place] [address] [facility] [address] [place] [address] Hortencia Zuniga RN Social History Tobacco Use Types Packs/Day [...] care for your loved ones. 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 [...] documented in this encounter Progress Notes * Hortencia Zuniga RN - 08/02/2025 3:[address] Lutz requested that we do a PA for isavuconazole in case she needs to start her on it. PA completed for 186 mg tablets at 2 per day. Medication approved from 08/02/2025 through 01/30/2026, [id number]. documented in this encounter Plan of Treatment Upcoming Encounters Date Type Department Care Team (Latest Contact Info) Description 08/10/2025 10:25 AM EDT Hospital Encounter [address] [phone] Tomasa Kenny MD [address] [place] [address] 08/10/2025 10:25 AM EDT - 08/10/2025 12:50 PM EDT Surgery [address] [phone] Tomasa Kenny MD [address] [place] [address] FLEXIBLE/ RIGID BRONCHOSCOPY [13628 (CPT )] 08/12/2025 11:45 AM EDT Office Visit [facility] Hematology Oncology [address] [place] [phone] Jeremias-Norman Adams MD [address] [place] [phone] 08/16/2025 3:30 PM EDT Office Visit Pulmonology - [place] 299 [facility] [address] [place] [phone] Tomasa Kenny MD [address] [place] [address] 08/25/2025 8:15 AM EDT Appointment [facility] Xray [address] [place] [phone] 10/11/2025 3:30 PM EST Ancillary Procedure [facility] - [address] [place] [phone] Scheduled Procedures Name Priority Associated Diagnoses Date/Ti me BRONCHOSCOPY Lung nodule 08/10/2025 10:25 AM EDT BRONCHOSCOPY NODULE 1 ROBOT Lung nodule 08/10/2025 10:25 AM EDT BRONCHOSCOPY NODULE 2 ROBOT Lung nodule 08/10/2025 10:[address] TRACHEOBRONCHIAL STENT Lung nodule 08/10/2025 10:25 AM EDT documented as of this encounter Visit Diagnoses Not on filedocumented in this encounter Care Teams Handicapped Teacher Relationship Specialty Start Date End Date Awa Reyes NP [facility] [address] [place] [address] PCP - General Nurse Practitioner 05/20/25 documented as of this encounter
--- OUTSIDE RECORDS SUMMARY | 2025-08-05 08:59 | XMS_ITS | Encounter Summary ---
Author Organization [facility] Address [address] [place] [address] Care Team Providers Care Transmitter Chief Name Role Phone Awa Reyes NP Primary Care Provider [phone] Encounter Details Date Type Department Care Team (Late st Contact Info) Description 08/04/2025 Telephone [facility] Hematology Oncology [address] [place] [address] Norman Gatica MD [address] [place] [address] Social History Tobacco Use Types Packs/Day Years [...] your loved ones. 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 [...] documented in this encounter Progress Notes * Molly Kline MA - 08/04/2025 10:04 AM EDT Spoke with Darryl. Provided him with information. * Norman Gatica MD - 08/04/2025 9:54 AM EDT Images from the original note were not included. Please ask him to confirm the location by calling the office number Here are the details * Bertha Mcneil - 08/04/2025 9:28 AM EDT Patient's brother is calling in regards to patient's appt at [facility] for tomorrow afternoon. Heis just seeking the name of the MD she was referred to and the location to the doctor so he makes sure she gets to the right place. Asks for a call at [phone] Darryl states it is okay to leave a detailed vm with the info if he does not answer the call. documented in this encounter Plan of Treatment Upcoming Encounters Date Type Department Care Team (Latest Contact Info) Description 08/10/2025 10:25 AM EDT Hospital Encounter [facility] OR [address] [place] [phone] Tomasa Kenny MD [address] [place] [phone] 08/10/2025 10:25 AM EDT - 08/10/2025 12:50 PM EDT Surgery [facility] OR [address] [place] [phone] Tomasa Kenny MD [address] [place] [phone] FLEXIBLE/ RIGID BRONCHOSCOPY [[id number] (CPT )] 08/12/2025 11:45 AM EDT Office Visit [facility] Hematology Oncology [address] [place] [phone] Norman Gatica MD [address] [place] [phone] 08/16/2025 3:30 PM EDT Office Visit Pulmonology - [place] 299 [facility] [address] [place] [phone] Tomasa Kenny MD [address] [place] [phone] 08/25/2025 8:15 AM EDT Appointment [facility] Xray [address] [place] [address] 10/11/2025 3:30 PM EST Ancillary Procedure [facility]iology Associates - [address] [place] [phone] Scheduled Procedures Name Priority Associated Diagnoses Date/Ti me BRONCHOSCOPY Lung nodule 08/10/2025 10:25 AM EDT BRONCHOSCOPY NODULE 1 ROBOT Lung nodule 08/10/2025 10:25 AM EDT BRONCHOSCOPY NODULE 2 ROBOT Lung nodule 08/10/2025 10:[address] TRACHEOBRONCHIAL STENT Lung nodule 08/10/2025 10:25 AM EDT documented as of this encounter Visit Diagnoses Not on filedocumented in this encounter Care Teams Transmitter Chief Relationship Specialty Start Date End Date Awa Reyes NP [facility] MEDICINE [address] [place] [address] PCP - General Nurse Practitioner 05/20/25 documented as of this encounter
--- OUTSIDE RECORDS SUMMARY | 2025-08-05 08:59 | XMS_ITS | Encounter Summary ---
Author Organization [facility] Address [address] [place] [address] Care Team Providers Care Yeast Washer Name Role Phone Awa Reyes NP Primary Care Provider [phone] Encounter Details Date Type Department Care Team (Late st Contact Info) Description 07/29/2025 Telephone [facility] Hematology Oncology [address] [place] [address] Norman Gatica MD [address] [place] [address] Social History Tobacco Use Types [...] for your loved ones. For example, children's ministry director or elderly care for an older [...] documented in this encounter Progress Notes * Martha Rothman - 07/29/2025 3:10 PM EDT Brother Darryl calling to report patient currently over in er due to sob, and swelling in legs just wanted to make you aware documented in this encounter Plan of Treatment Upcoming Encounters Date Type Department Care Team (Latest Contact Info) Description 08/10/2025 10:25 AM EDT Hospital Encounter [address] [phone] Tomasa Kenny MD [address] [place] [phone] 08/10/2025 10:25 AM EDT - 08/10/2025 12:50 PM EDT Surgery [address] [phone] Tomasa Kenny MD [address] [place] [phone] FLEXIBLE/ RIGID BRONCHOSCOPY [24042 (CPT )] 08/12/2025 11:45 AM EDT Office Visit [facility] Hematology Oncology [address] [place] [address] Norman Gatica MD [address] [place] [phone] 08/16/2025 3:30 PM EDT Office Visit Pulmonology - [place] 299 [facility] [address] [place] [phone] Tomasa Kenny MD [address] [place] [address] 08/25/2025 8:15 AM EDT Appointment [facility] Xray [address] [place] [phone] 10/11/2025 3:30 PM EST Ancillary Procedure [facility]iology Associates - [address] [place] [phone] Scheduled Procedures Name Priority Associated Diagnoses Date/Ti [...] documented as of this encounter Care Teams Yeast Washer Relationship Specialty Start Date End Date Awa Reyes NP [facility] MEDICINE [address] [place] [address] PCP - General Nurse Practitioner 05/20/25 documented as of this encounter
== END 2025-08-05 08:55 | disposition home or self-care (01) ==
LOC: HO.HSM 08:31
PROVIDERS: PCP Internal Medicine; Visit Provider Registered Nurse
DX: G47.411 Narcolepsy with cataplexy (principal); F32.A Depression, unspecified
CPT/HCPCS: 99214

== ENCOUNTER → 2025-08-05 08:30 | Outpatient (BNVA) | payer OTHER, SELFPAY | PROVIDERS: PCP Internal Medicine; Visit Provider Registered Nurse | DX: G47.419 Narcolepsy without cataplexy (principal); Z85.72 Personal history of non-Hodgkin lymphomas; F32.A Depression, unspecified; Z13.89 Encounter for screening for other disorder ==